=== PATIENT | male | born 1935 | race Caucasian/White ===

== ENCOUNTER 2017-06-04 14:22 | Inpatient (IN) | payer OTHER ==
[2017-06-04] MEDS ORDERED: TYLENOL PO STA (14:50)
[2017-06-04] MEDS ORDERED: TYLENOL ONE (15:15)
--- NOTE | 2017-06-04 15:18 | ED.PDOC ---
General ED Provider: Dr. RAHAT RINCON Chief Complaint: Respiratory Complaint Stated Complaint: Patient is an 82 year old who comes to the ER with c/o cough and fever for the past 7 days. The cough is productive of yellow phlegm. He denies sore throat also c/o bodyaches and nasal congestion. Time Seen by Physician: 15:17 Mode of Arrival: Walk-In Information Source: Patient Exam Limitations: No limitations Primary Care Provider: GUANACO HINOJOSA Nursing and Triage Documentation Reviewed and Agree: Yes Reviewed sepsis parameters & appropriate labs ordered?: Yes System Inflammatory Response Syndrome: Temp 101F or Greater, Pulse >90 BPM Sepsis Protocol: For patient's 13 years and over: Temp is 96.8 and below OR 101 and greater Pulse >90 BPM Resp >20/minute Acutely Altered Mental Status Are patient's symptoms suggestive of a new infection, such as: -Pneumonia -Skin, Soft Tissue -Endocarditis -UTI -Bone, Joint Infection -Implantable Device -Acute Abdominal Infection -Wound Infection -Meningitis -Blood Stream Catheter Infection -Unknown System Inflammatory Response Syndrome: 10yr-17yr with HR>105 Respiratory Complaint Exam - Shortness of Air Complaint/Exam Onset/Duration: 1 week Symptoms Are: Still present Timing: Constant Initial Severity: Moderate Current Severity: Moderate Character: Reports: Dyspnea at rest Aggravating: Reports: URI, Weather Associated Signs and Symptoms: Reports: Cough History of Healthcare-Acquired Pneumonia: No Pulmonary Embolism Risk Factors: Reports: None Cardiac Risk Factors: Reports: None Pseudomonas Risk Factors: Reports: None Tuberculosis Risk Factors: Reports: None Home Oxygen Use: No Recent Stress Test: No Recent Echo/LV Function: No Respiratory Distress: Mild Stridor Present: No Tracheal Deviation: No Subcutaneous Emphysema: No Accessory Muscle Use: No Retractions: Not Present Diminished Breath Sounds: No Prolonged Expiratory Phase: No Unable to Speak Full Sentences: No Fatigue: No Leg Swelling: No Cari's Sign Present: No Grunting Respirations: No Kussmaul Respirations: No Differential Diagnoses: Pneumonia, URI Review of Systems - Review Of Systems Constitutional: Reports: Chills, Fever Eyes: Reports: No symptoms Ears, Nose, Mouth, Throat: Reports: No symptoms Respiratory: Reports: Cough, Short of air Cardiac: Reports: No symptoms GI: Reports: No symptoms : Reports: No symptoms Musculoskeletal: Reports: No symptoms Skin: Reports: No symptoms Neurological: Reports: Anxiety Endocrine: Reports: No symptoms Hematologic/Lymphatic: Reports: No symptoms All Other Systems: Reviewed and Negative Past Medical History - Past Medical History Previously Healthy: Yes Endocrine: Reports: None Cardiovascular: Reports: None Respiratory: Reports: None Hematological: Reports: None Gastrointestinal: Reports: None Genitourinary: Reports: None Neuro/Psych: Reports: None Musculoskeletal: Reports: None Cancer: Reports: None - Surgical History General Surgical History: Reports: None - Family History Family History: Reports: None - Social History Smoking Status: Former smoker Hx Substance Use: No Alcohol Screening: None Physical Exam - Physical Exam Appearance: Ill-appearing Ill-appearing: Moderate Eyes: MIKAYLA, EOMI, Conjunctiva clear Neck: Supple Respiratory: Rhonchi Cardiovascular: Irregular rhythm, Tachycardia GI/: Soft, Nontender Musculoskeletal: Normal strength Skin: Warm, Dry, Normal color Neurological: Motor intact, Alert, Oriented Psychiatric: Anxious Physician Notification - Case Discussed Physician Notified: Dr. Massey Time of Notification: 17:00 Critical Care Note - Critical Care Note Total Time (mins): 35 Course - Course Hematology/Chemistry: 06/04/17 15:05 06/04/17 15:05 Orders, Labs, Meds: Lab Review 06/04/17 06/04/17 06/04/17 14:37 14:50 15:05 WBC 9.26 RBC 5.47 Hgb 15.5 Hct 46.0 MCV 84.1 MCH 28.3 MCHC 33.7 RDW Coeff of Tiffany 15.0 H Plt Count 267 Immature Gran % (Auto) 0.3 Neut % (Auto) 79.4 Lymph % (Auto) 13.1 Atkinson % (Auto) 6.9 Eos % (Auto) 0.1 Baso % (Auto) 0.2 Immature Gran # (Auto) 0.0 Neut # 7.4 H Lymph # 1.2 Atkinson # 0.6 Eos # 0.0 Baso # 0.0 PT INR Puncture Site Rr O2 Saturation 90.0 L ABG pH 7.466 H ABG pCO2 28.7 L ABG pO2 54.0 L* ABG HCO3 20.7 L ABG Total CO2 22 ABG Base Excess -3 L George Test + FiO2 % 21.0 Sodium Potassium Chloride Carbon Dioxide Anion Gap BUN Creatinine Estimated GFR (MDRD) BUN/Creatinine Ratio Glucose Lactic Acid Calcium Total Bilirubin AST ALT Alkaline Phosphatase Total Protein Albumin Globulin Albumin/Globulin Ratio Procalcitonin Influenza A (Rapid) Negative by naat Influenza B (Rapid) Negative by naat 06/04/17 06/04/17 06/04/17 15:05 15:05 15:05 WBC RBC Hgb Hct MCV MCH MCHC RDW Coeff of Tiffany Plt Count Immature Gran % (Auto) Neut % (Auto) Lymph % (Auto) [place] % (Auto) Eos % (Auto) Baso % (Auto) Immature Gran # (Auto) Neut # Lymph # Atkinson # Eos # Baso # PT INR Puncture Site O2 Saturation ABG pH ABG pCO2 ABG pO2 ABG HCO3 ABG Total CO2 ABG Base Excess George Test FiO2 % Sodium 137 Potassium 3.8 Chloride 105 Carbon Dioxide 23 Anion Gap 12.8 BUN 17 Creatinine 1.31 H Estimated GFR (MDRD) 53.00 BUN/Creatinine Ratio 12.97 Glucose 334 H Lactic Acid 14.1 Calcium 9.3 Total Bilirubin 0.5 AST 27 ALT 48 Alkaline Phosphatase 93 Total Protein 6.9 Albumin 3.2 L Globulin 3.7 Albumin/Globulin Ratio 0.86 Procalcitonin < 0.05 Influenza A (Rapid) Influenza B (Rapid) 06/04/17 15:05 WBC RBC Hgb Hct MCV MCH MCHC RDW Coeff of Tiffany Plt Count Immature Gran % (Auto) Neut % (Auto) Lymph % (Auto) [place] % (Auto) Eos % (Auto) Baso % (Auto) Immature Gran # (Auto) Neut # Lymph # Atkinson # Eos # Baso # PT 33.8 H INR 3.43 Puncture Site O2 Saturation ABG pH ABG pCO2 ABG pO2 ABG HCO3 ABG Total CO2 ABG Base Excess George Test FiO2 % Sodium Potassium Chloride Carbon Dioxide Anion Gap BUN Creatinine Estimated GFR (MDRD) BUN/Creatinine Ratio Glucose Lactic Acid Calcium Total Bilirubin AST ALT Alkaline Phosphatase Total Protein Albumin Globulin Albumin/Globulin Ratio Procalcitonin Influenza A (Rapid) Influenza B (Rapid) Orders Category Date Time Status ADMIT PATIENT INPATIENT .TO [facility] (MONITORED BED) ADMISSION 06/04/17 16: 30 Active ABG DRAW REQUEST Stat CARDIO 06/04/17 14:50 Completed NEBULIZER TREATMENT Routine CARDIO 06/04/17 16:37 Active NEBULIZER TREATMENT Stat CARDIO 06/04/17 15:24 Completed OXYGEN Routine CARDIO 06/04/17 16:30 Active BLOOD GLUCOSE MONITORING 0630,1100,1700,2100 CARE 06/04/17 16:37 Active GIVE HS SNACK 2100 CARE 06/04/17 16:37 Active INTAKE & OUTPUT Q8HR CARE 06/04/17 16:33 Active IV ACCESS ONCE CARE 06/04/17 14:49 Active TELEMETRY MONITORING TELE CARE 06/04/17 16:42 Active VITAL SIGNS Q4HR CARE 06/04/17 16:33 Active ADA 1800 NIK. DIET DIETARY 06/04/17 Dinner Ordered HS SNACK DIETARY 06/04/17 Dinner Ordered ED APPLY O2 .ONCE EMERGENCY 06/04/17 14:49 Active ED BUTTON MAKER AND INSTALLER APPLIED .ONCE EMERGENCY 06/04/17 14:49 Active ED VITAL SIGNS Q1HR EMERGENCY 06/04/17 14:49 Active ABG Stat LAB 06/04/17 14:50 Completed BASIC METABOLIC PANEL DAILY@0600 LAB 06/05/17 06:00 Ordered BASIC METABOLIC PANEL DAILY@0600 LAB 06/06/17 06:00 Ordered BLOOD CULTURE (ED ONLY) Stat LAB 06/04/17 15:05 Received CBC W/ AUTO DIFF DAILY@0600 LAB 06/05/17 06:00 Ordered CBC W/ AUTO DIFF DAILY@0600 LAB 06/06/17 06:00 Ordered CBC W/ AUTO DIFF Stat LAB 06/04/17 15:05 Completed COMPREHENSIVE METABOLIC PANEL Stat LAB 06/04/17 15:05 Completed FLU A & B RAPID TEST [MOLECULAR FLU A/B] Stat LAB 06/04/17 14:37 Completed LACTIC ACID Stat LAB 06/04/17 15:05 Completed PROCALCITONIN Stat LAB 06/04/17 15:05 Completed PT WITH INR Stat LAB 06/04/17 15:05 Completed URINALYSIS C & S IF INDICATED Stat LAB 06/04/17 14:49 Uncollected Acetaminophen [Tylenol] MEDS 06/04/17 14:50 Discontinued 1,000 mg PO ONCE STA Acetaminophen [Tylenol] MEDS 06/04/17 16:30 Ordered 650 mg PO Q4H PRN Azithromycin [Zithromax] MEDS 06/04/17 15:38 Discontinued 500 mg PO ONCE STA Ceftriaxone Sodium [Rocephin] 1 gm MEDS 06/05/17 09:00 Ordered 0.9 % Sodium Chloride [Sodium Chloride] 50 ml IV DAILY Ceftriaxone Sodium [Rocephin] 1 gm MEDS 06/04/17 15:38 Discontinued 0.9 % Sodium Chloride [Sodium Chloride] 50 ml IV ONCE Ipratropium/Albuterol Neb [Duoneb] MEDS 06/04/17 15:24 Discontinued 1 vial NEB ONCE STA Ipratropium/Albuterol Neb [Duoneb] MEDS 06/04/17 20:00 Ordered 1 vial NEB RTQID Methylprednisolone Sod Succ/Pf [Solu-Medrol 125 mg] MEDS 06/04/17 15:24 Discontinued 125 mg IVP ONCE STA Methylprednisolone Sod Succ/Pf [Solu-Medrol 40 mg] MEDS 06/04/17 21:00 Ordered 40 mg IVP Q8HR Ondansetron HCl/Pf [Zofran 4 mg/2 ml] MEDS 06/04/17 16:30 Ordered 4 mg IVP Q6H PRN Sodium Chloride 0.9% [Sodium Chloride] 1,000 ml MEDS 06/04/17 16:30 Ordered IV 125 mls/hr RESUSCITATION STATUS Routine OTHERS 06/04/17 16:30 Ordered CHEST, 2 VIEWS PA & LAT Stat RADS 06/04/17 14:49 Completed Medications Generic Name Dose Route Start Last Admin Trade Name Freq PRN Reason Stop Dose Admin Acetaminophen 650 mg 06/04/17 16:30 Tylenol PO Q4H PRN fever Albuterol/Ipratropium 1 vial 06/04/17 20:00 Duoneb NEB RTQID CLYDE Amiodarone HCl 200 mg 06/05/17 09:00 Cordarone PO DAILY [facility] Doxycycline Hyclate 100 mg 06/04/17 21:00 Doxycycline Hyclate PO Q12HR [facility] Ceftriaxone Sodium 1 gm/ 50 mls @ 75 mls/hr 06/05/17 09:00 Sodium Chloride IV DAILY [facility] Sodium Chloride 1,000 mls @ 125 mls/hr 06/04/17 16:30 Sodium Chloride IV .Q8H [facility] Insulin Human Regular 0 - 15 unit 06/04/17 16:45 Humulin R SUBCUT PRN PRN Hyperglycemica Protocol Metformin HCl 500 mg 06/05/17 09:00 Glucophage PO DAILY [facility] Methylprednisolone Sodium Succinate 40 mg 06/04/17 21:00 Solu-Medrol 40 Mg IVP Q8HR CLYDE Non-Formulary Medication 1 tab 06/05/17 09:00 Lisinopril/Hydrochlorothiazide [Lisinopril-Hctz 10-12.5 Mg Tab] PO DAILY CLYDE Ondansetron HCl 4 mg 06/04/17 16:30 Zofran 4 Mg/2 Ml IVP Q6H PRN Nausea / Vomiting Simvastatin 40 mg 06/05/17 09:00 Zocor PO DAILY CLYDE Discontinued Medications Generic Name Dose Route Start Last Admin Trade Name Freq PRN Reason Stop Dose Admin Acetaminophen 1,000 mg 06/04/17 14:50 06/04/17 15:23 Tylenol PO 06/04/17 14:51 1,000 mg ONCE STA Administration Albuterol/Ipratropium 1 vial 06/04/17 15:24 06/04/17 15:44 Duoneb NEB 06/04/17 15:25 1 vial ONCE STA Administration Azithromycin 500 mg 06/04/17 15:38 06/04/17 16:32 Zithromax PO 06/04/17 15:39 Not Given ONCE STA Ceftriaxone Sodium 1 gm/ 50 mls @ 75 mls/hr 06/04/17 15:38 06/04/17 16:30 Sodium Chloride IV 06/04/17 16:17 75 mls/hr ONCE STA Administration Methylprednisolone Sodium Succinate 125 mg 06/04/17 15:24 06/04/17 15:50 Solu-Medrol 125 Mg IVP 06/04/17 15:25 125 mg ONCE STA Administration Vital Signs: Temp Pulse Resp BP Pulse Ox 06/04/17 15:40 120 H 23 132/95 H 91 L 06/04/17 15:05 106 H 16 90 L 06/04/17 15:00 113 H 28 H 172/92 H 88 L 06/04/17 14:22 101.1 F H 126 H 20 179/90 H 89 L Departure - Departure Time of Disposition: 17:40 Disposition: ADMITTED INPATIENT Discharge Problem: Pneumonitis Condition: Stable Pt referred to PMD for follow-up: No (admitted. ) Allergies/Adverse Reactions: Allergies No Known Allergies Allergy (Verified 11/16/15 08:59) Home Medications: Ambulatory Orders Amiodarone HCl 200 mg PO DAILY 05/11/14 Lisinopril/Hydrochlorothiazide [Lisinopril-Hctz 10-12.5 mg Tab] 1 tab PO DAILY 05/11/14 Simvastatin 40 mg PO DAILY 05/11/14 Warfarin Sodium [Coumadin] 2.5 mg PO DAILY 05/11/14 Metformin HCl 500 mg PO DAILY 06/04/17
[2017-06-04] MEDS ORDERED: SOLU-MEDROL 125 MG IVP STA (15:24)
[2017-06-04] MEDS ORDERED: DUONEB NEB STA (15:24)
[2017-06-04] MEDS ORDERED: SOLU-MEDROL 125 MG ONE (15:36)
[2017-06-04] MEDS ORDERED: ZITHROMAX PO STA (15:38)
[2017-06-04] MEDS ORDERED: ROCEPHIN 1 GM in SODIUM CHLORIDE 50 ML IV STA (15:38)
--- NOTE | 2017-06-04 15:52 | DI ---
EXAM: Chest two views HISTORY: Cough COMPARISON: 05/11/2014 TECHNIQUE: Two views of the chest were performed FINDINGS: Subtle right apical opacity. There is no pleural effusion or pneumothorax. The heart is mildly enlarged, unchanged in size. The mediastinal contour is unchanged, noting atherosclerosis. M edian sternotomy wires.. There are no acute abnormalities of the bones. IMPRESSION: 1. Subtle right apical opacity, uncertain etiology. This could represent a small focus of scarring or possibly a pneumonitis. Nodule not excluded. Recommend radiographic follow-up [address] could also be performed for further evaluation. 2. Cardiomegaly. Report faxed.
[2017-06-04] MEDS ORDERED: ROCEPHIN ONE (15:54)
[2017-06-04] MEDS ORDERED: ZITHROMAX ONE (15:55)
[2017-06-04] MEDS ORDERED: ZOFRAN 4 MG/2 ML IVP PRN (16:30)
[2017-06-04] MEDS ORDERED: SODIUM CHLORIDE 1,000 ML IV SCH (16:30)
[2017-06-04] MEDS ORDERED: TYLENOL PO PRN (16:30)
[2017-06-04 18:11] VITALS: BMI 25.0
[2017-06-04] MEDS: HUMULIN R SUBCUT PRN ×2 (18:27→21:59)
[2017-06-04] MEDS: DUONEB NEB SCH (20:06)
[2017-06-04] MEDS ORDERED: GLYBURIDE 2.5 MG PO SCH (21:00)
[2017-06-04] MEDS: FLONASE NAS SCH (21:52)
[2017-06-04] MEDS: DOXYCYCLINE HYCLATE PO SCH (21:52)
[2017-06-04] MEDS: SOLU-MEDROL 40 MG IVP SCH (21:53)
[2017-06-05] MEDS: SOLU-MEDROL 40 MG IVP SCH ×3 (04:35→20:41)
[2017-06-05] MEDS: SODIUM CHLORIDE 1,000 ML IV SCH ×3 (04:39→22:40)
[2017-06-05] MEDS: DUONEB NEB SCH ×5 (05:07→23:28)
[2017-06-05] MEDS: HUMULIN R SUBCUT PRN ×4 (06:00→21:27)
[2017-06-05] MEDS ORDERED: COUMADIN PO SCH (09:00)
[2017-06-05] MEDS: ROCEPHIN 1 GM in SODIUM CHLORIDE 50 ML IV SCH (09:34)
[2017-06-05] MEDS: DOXYCYCLINE HYCLATE PO SCH ×2 (09:35→20:36)
[2017-06-05] MEDS: ZOCOR PO SCH (09:35)
[2017-06-05] MEDS: GLUCOPHAGE PO SCH (09:35)
[2017-06-05] MEDS: HYDROCHLOROTHIAZIDE PO SCH (09:35)
[2017-06-05] MEDS: CORDARONE PO SCH (09:35)
[2017-06-05] MEDS: ZESTRIL PO SCH (09:35)
--- NOTE | 2017-06-05 09:38 | PCM.PROG ---
Attending Provider: ATTENDING PROVIDER: [facility] This patient is seen with Rosa Maria Christianson, Nurse Practitioner. DATE OF SERVICE: 06/05/17 SUBJECTIVE: This 82 year old WHITE/ M was hospitalized 06/04/17. The patient is lying in bed, resting comfortably. He had been running a fever for several days with cough and came to the ER last night. REVIEW OF SYSTEMS: CONSTITUTIONAL: No night sweats. No fatigue, malaise, lethargy. No fever or chills. HEENT: Eyes: No visual changes. No eye pain. No eye discharge. ENT: No runny nose. No epistaxis. No sinus pain. No odynophagia. No congestion. RESPIRATORY: Cough and congestion. No hemoptysis. No shortness of breath. CARDIOVASCULAR: No angina symptoms. No CHF symptoms. No atypical chest pain for CAD. No palpitations. No orthopnea.. GASTROINTESTINAL: No abdominal pain. No nausea or vomiting. No diarrhea or constipation. No hematemesis. No hematochezia. GENITOURINARY: No urgency. No frequency. No dysuria. No hematuria. No obstructive symptoms. No discharge. No pain. No significant abnormal bleeding. MUSCULOSKELETAL: No musculoskeletal pain; no joint swelling. NEUROLOGICAL: Awake, alert, oriented to time, place and person. No headache. No neck pain. No syncope. No seizures. No dizziness. PSYCHIATRIC: Not anxious. No depression. No suicidal thoughts. No homicidal thoughts. SKIN: No rash. No lesions. No wounds. ENDOCRINE: No unexplained weight loss. No weight gain. HEMATOLOGIC/LYMPHATIC: No anemia. No purpura. No petechiae. No prolonged or excessive bleeding. No palpable lymph nodes. PHYSICAL EXAMINATION: GENERAL: The patient is awake, alert and oriented, lying in bed in no distress. VITAL SIGNS: Temperature 97.2 F, Pulse 88, Respiratory Rate 16, BP 123/63, Pulse Ox 96% HEENT: Head normocephalic, atraumatic. Eyes: Extraocular muscles are intact. Pupils are equal, round and reactive to light and accommodation. Ears: No lesions. Nose appeared normal. Throat: No exudate or erythema. NECK: Supple. No JVD, no carotid bruit. No lymphadenopathy or thyromegaly. LUNGS: Diminished breath sounds bilaterally. Percussion note normal. Chest symmetrical. HEART: S1, S2, no S3. No murmurs. No cyanosis or clubbing. No ascites. Pulses: Dorsalis pedis and posterior tibial pulses +1 to +2 both sides. ABDOMEN: Soft. Non-tender. Bowel sounds active. No CVA tenderness. No mass felt. EXTREMITIES: No edema. Full range of motion of all extremities, equal. NEUROLOGIC: No focal deficit. Cranial nerves II through XII are grossly intact. No headache, no double vision or headache. SKIN: Not dry. Intact. Turgor-normal. LYMPHATIC: No palpable lymph nodes/no lymphedema. MUSCULOSKELETAL: Normal joints with no swelling. Muscle tone is normal. LAB REVIEW: 06/05/17 04:10 06/05/17 04:10 06/05/17 04:10: PT 35.3 H, INR 3.59 06/05/17 04:10: Sodium 138, Potassium 3.7, Chloride 107, Carbon Dioxide 23, Anion Gap 11.7, BUN 20 H, Creatinine 1.35 H, Estimated GFR (MDRD) 51.00, BUN/ Creatinine Ratio 14.81, Glucose 340 H, Calcium 9.1, TSH 0.339 L, Free T4 1.21 H 06/05/17 04:10: WBC 10.76 H, RBC 5.12, Hgb 14.4, Hct 43.0, MCV 84.0, MCH 28.1, MCHC 33.5, RDW Coeff of Tiffany 15.2 H, Plt Count 251, Immature Gran % (Auto) 0.4, Neut % (Auto) 86.8, Lymph % (Auto) 9.5 L, Harris % (Auto) 3.1, Eos % (Auto) 0.0, Baso % (Auto) 0.2, Immature Gran # (Auto) 0.0, Neut # 9.4 H, Lymph # 1.0, Harris # 0.3 L, Eos # 0.0, Baso # 0.0 06/04/17 20:45: Urine Color Yellow, Urine Clarity Clear, Urine pH 6.0, Ur Specific [place] 1.010, Urine Protein 1+, Urine Glucose (UA) 2+, Urine Ketones Trace, Urine Blood Trace-intact, Urine Nitrite Negative, Urine Bilirubin Negative, Urine Urobilinogen 0.2, Ur Leukocyte Esterase Negative, Urine Microscopic RBC 2-5, Ur Squamous Epith Cells Not present, Hyaline Casts 0-2, Urine Mucus Trace ASSESSMENT: 1. PNEUMONIA 2. HISTORY OF ATRIAL FIBRILLATION 3. DIABETES MELLITUS TYPE 2 PLAN: 1. Daily INR 2. Hold Coumadin today restart tomorrow 3. Decrease IV fluids 50 cc/hr Plan and coordination of the patient's care discussed in the presence of Law Examiner and nurse. CONDITION: STABLE SCRIBED BY: POLLO LEON Orchestra Director scribed while in presence of service performed by Dr. Arthur/Rosa Maria Christianson APRN on 06/05/17 ([id number])
--- NOTE | 2017-06-05 13:37 | PN ---
DATE OF SERVICE: 06/04/17 SUBJECTIVE: 82-year-old white male was brought to the emergency room because of fever, chills, cough and congestion with flu-type of symptoms. The patient had evidence of pneumonia on chest x-ray. He is Dr. Chase's patient. He has history of atrial fibrillation and on Coumadin with INR of 3.2. PHYSICAL EXAMINATION: HEENT: Head normocephalic, atraumatic. Eyes: Extraocular muscles are intact. Pupils are equal, round and reactive to light and accommodation. Ears: No lesions. Nose appeared normal. Throat: No exudate or erythema. NECK: Supple. No JVD, no carotid bruit. No lymphadenopathy or thyromegaly. LUNGS: Decreased breath sounds with mild wheeze. Clear to auscultation. Percussion note normal. Chest symmetrical. HEART: S1, S2, no S3. No murmurs. No cyanosis or clubbing. No ascites. Pulses: Dorsalis pedis and posterior tibial pulses +1 bilaterally. ABDOMEN: Soft. Nontender. Bowel sounds active. No CVA tenderness. No mass felt. EXTREMITIES: No edema. Full range of motion of all extremities, equal. NEUROLOGIC: No focal deficit. Cranial nerves II through XII are grossly intact. No headache, no double vision or headache. SKIN: Not dry. Intact. Turgor - normal. LYMPHATIC: No palpable lymph nodes/no lymphedema. MUSCULOSKELETAL: Normal joints with no swelling. Muscle tone is normal. ASSESSMENT: 1. ACUTE PNEUMONITIS/BRONCHITIS 2. DEHYDRATION 3. ATRIAL FIBRILLATION WITH RAPID VENTRICULAR RESPONSE 4. CHRONIC LUNG DISEASE 5. MILD ANEMIA PLAN: 1. IV antibiotics 2. Steroids 3. Nebs treatment 4. IV fluids 5. Oxygen 6. Hold Coumadin for now 7. Rocephin, will have Doxycycline with it CONDITION: Stable TIME SPENT: More than 30 minutes. Plan and coordination of the patient's care discussed in the presence of nurse. KENNY
[2017-06-05] MEDS: DIABETA PO SCH (20:35)
[2017-06-05] MEDS: FLONASE NAS SCH (20:35)
[2017-06-06] MEDS: DUONEB NEB SCH ×3 (04:17→14:09)
[2017-06-06] MEDS: HUMULIN R SUBCUT PRN ×4 (05:34→20:19)
[2017-06-06] MEDS: SOLU-MEDROL 40 MG IVP SCH ×3 (05:36→21:06)
[2017-06-06] MEDS: GLUCOPHAGE PO SCH (08:28)
--- NOTE | 2017-06-06 09:22 | PCM.PROG ---
Attending Provider: ATTENDING PROVIDER: [facility] This patient is seen with Rosa Maria Christianson, Nurse Practitioner. DATE OF SERVICE: 06/06/17 SUBJECTIVE: This 82 year old WHITE/ M was hospitalized 06/04/17. The patient is alert lying in bed. He states he did not sleep well last night. He is still coughing. No shortness of breath. Telemetry shows persistent atrial fibrillation which is chronic. INR still elevated at 3.9. REVIEW OF SYSTEMS: CONSTITUTIONAL: No night sweats. No fatigue, malaise, lethargy. No fever or chills. HEENT: Eyes: No visual changes. No eye pain. No eye discharge. ENT: No runny nose. No epistaxis. No sinus pain. No odynophagia. No congestion. RESPIRATORY: Cough and congestion. No hemoptysis. No shortness of breath. CARDIOVASCULAR: No angina symptoms. No CHF symptoms. No atypical chest pain for CAD. No palpitations. No orthopnea.. GASTROINTESTINAL: No abdominal pain. No nausea or vomiting. No diarrhea or constipation. No hematemesis. No hematochezia. GENITOURINARY: No urgency. No frequency. No dysuria. No hematuria. No obstructive symptoms. No discharge. No pain. No significant abnormal bleeding. MUSCULOSKELETAL: No musculoskeletal pain; no joint swelling. NEUROLOGICAL: Awake, alert, oriented to time, place and person. No headache. No neck pain. No syncope. No seizures. No dizziness. PSYCHIATRIC: Not anxious. No depression. No suicidal thoughts. No homicidal thoughts. SKIN: No rash. No lesions. No wounds. ENDOCRINE: No unexplained weight loss. No weight gain. HEMATOLOGIC/LYMPHATIC: No anemia. No purpura. No petechiae. No prolonged or excessive bleeding. No palpable lymph nodes. PHYSICAL EXAMINATION: GENERAL: The patient is awake, alert and oriented, lying in bed in no distress. VITAL SIGNS: Temperature 97.4 F, Pulse 98, Respiratory Rate 18, BP 143/68, Pulse Ox 97% HEENT: Head normocephalic, atraumatic. Eyes: Extraocular muscles are intact. Pupils are equal, round and reactive to light and accommodation. Ears: No lesions. Nose appeared normal. Throat: No exudate or erythema. NECK: Supple. No JVD, no carotid bruit. No lymphadenopathy or thyromegaly. LUNGS: Diminished breath sounds. Clear to auscultation. Percussion note normal. Chest symmetrical. HEART: Irregular heart rate. S1, S2, no S3. No murmurs. No cyanosis or clubbing. No ascites. Pulses: Dorsalis pedis and posterior tibial pulses +1 to +2 both sides. ABDOMEN: Soft. Non-tender. Bowel sounds active. No CVA tenderness. No mass felt. EXTREMITIES: No edema. Full range of motion of all extremities, equal. NEUROLOGIC: No focal deficit. Cranial nerves II through XII are grossly intact. No headache, no double vision or headache. SKIN: Not dry. Intact. Turgor-normal. LYMPHATIC: No palpable lymph nodes/no lymphedema. MUSCULOSKELETAL: Normal joints with no swelling. Muscle tone is normal. LAB REVIEW: 06/06/17 04:30 06/06/17 04:30 06/06/17 04:30: PT 38.3 H, INR 3.90 06/06/17 04:30: Sodium 134 L, Potassium 3.3 L, Chloride 105, Carbon Dioxide 19 L , Anion Gap 13.3, BUN 30 H, Creatinine 1.39 H, Estimated GFR (MDRD) 49.00, BUN/ Creatinine Ratio 21.58, Glucose 351 H, Calcium 8.9 06/06/17 04:30: WBC 16.03 H D, RBC 4.63 L, Hgb 13.1 L, Hct 38.6 L, MCV 83.4, MCH 28.3, MCHC 33.9, RDW Coeff of Tiffany 15.8 H, Plt Count 253, Immature Gran % ( Auto) 1.4, Neut % (Auto) 89.5, Lymph % (Auto) 4.1 L, [place] % (Auto) 4.9, Eos % ( Auto) 0.0, Baso % (Auto) 0.1, Immature Gran # (Auto) 0.2, Neut # 14.3 H, Lymph # 0.7, [place] # 0.8, Eos # 0.0, Baso # 0.0 ASSESSMENT: 1. PNEUMONIA 2. ATRIAL FIBRILLATION 3. DIABETES MELLITUS TYPE 2 4. CHRONIC KIDNEY DISEASE 5. HYPOKALEMIA PLAN: 1. Finish this bag of IV fluids and saline lock 2. Tussionex one teaspoon b.i.d. for cough 3. Potassium 40 mEq b.i.d. 4. Hold Coumadin today 5. Repeat INR tomorrow Plan and coordination of the patient's care discussed in the presence of Shaft Tender and nurse. CONDITION: STABLE SCRIBED BY: POLLO LEON Milling Machine Operator scribed while in presence of service performed by Dr. Arthur/Rosa Maria Christianson APRN on 06/06/17 ([id number])
[2017-06-06] MEDS: ROCEPHIN 1 GM in SODIUM CHLORIDE 50 ML IV SCH (09:23)
[2017-06-06] MEDS: ZESTRIL PO SCH (09:26)
[2017-06-06] MEDS: HYDROCHLOROTHIAZIDE PO SCH (09:27)
[2017-06-06] MEDS: CORDARONE PO SCH (09:28)
[2017-06-06] MEDS: DOXYCYCLINE HYCLATE PO SCH ×2 (09:28→20:09)
[2017-06-06] MEDS: SODIUM CHLORIDE 1,000 ML IV SCH (09:29)
[2017-06-06] MEDS: ZOCOR PO SCH (09:29)
[2017-06-06] MEDS: K-DUR PO SCH ×2 (09:36→20:08)
[2017-06-06] MEDS: TUSSIONEX PO SCH ×2 (09:36→20:08)
[2017-06-06] MEDS ORDERED: COUMADIN PO SCH (17:00)
[2017-06-06] MEDS: FLONASE NAS SCH (20:08)
[2017-06-06] MEDS: DIABETA PO SCH (20:09)
[2017-06-07] MEDS: DUONEB NEB SCH ×2 (04:12→10:19)
[2017-06-07] MEDS: SOLU-MEDROL 40 MG IVP SCH (05:01)
[2017-06-07] MEDS: HUMULIN R SUBCUT PRN (05:53)
[2017-06-07] MEDS: ROCEPHIN 1 GM in SODIUM CHLORIDE 50 ML IV SCH (08:09)
[2017-06-07] MEDS: ZESTRIL PO SCH (08:10)
[2017-06-07] MEDS: DOXYCYCLINE HYCLATE PO SCH (08:10)
[2017-06-07] MEDS: GLUCOPHAGE PO SCH (08:10)
[2017-06-07] MEDS: HYDROCHLOROTHIAZIDE PO SCH (08:10)
[2017-06-07] MEDS: ZOCOR PO SCH (08:11)
[2017-06-07] MEDS: TUSSIONEX PO SCH (08:11)
[2017-06-07] MEDS: K-DUR PO SCH (08:11)
[2017-06-07] MEDS: CORDARONE PO SCH (08:11)
--- NOTE | 2017-06-07 09:31 | DS ---
DATE OF SERVICE: 06/07/17 FINAL DIAGNOSIS: 1. PNEUMONITIS, ACUTE 2. HISTORY OF UTI 3. BPH 4. NON INSULIN DEPENDENT DIABETES MELLITUS 5. NV 6. ARTHRITIS 7. CAD 8. HYPERTENSION 9. DYSLIPIDEMIA 10. CABG TIMES 4, 05/12/14 11. BILATERAL INGUINAL HERNIA REPAIR WITH MESH, DATE UNKNOWN 12. TOTAL LEFT KNEE REPAIR, DATE UNKNOWN DISCHARGE INSTRUCTIONS: Followup appointment: Followup with Dr. Bryson Lui, June 13 at 8:15 a.m.. Please call if unable to keep appointment. MEDICATIONS AT DISCHARGE: Cordarone 200 mg p.o. daily CLYDE Flonase two sprays KARLA bedtime CLYDE Diabeta 2.5 mg p.o. bedtime CLYDE Glucophage 500 mg p.o. daily with meal CLYDE Zocor 40 mg p.o. daily CLYDE Coumadin 2.5 mg p.o. SuMoWeThFr@ 1700 CLYDE Coumadin 5 mg p.o. TuSa@1700 [facility] NEW PRESCRIPTIONS: Tussionex take 5 mL two times a day for 5 days as needed for cough Keflex 500 mg take one capsule three times daily for 5 days, take until all gone Prednisone 10 mg take one tablet two times a day for five days, take with food Zestril 5 mg one tablet daily DIET INSTRUCTIONS: 1800 calorie diet ACTIVITY: Gradually resume your activity. Avoid extreme cold and crowds. SMOKING: N/A DISEASE SPECIFIC EDUCATION: Pneumonia Medications Steroids and diabetes Coumadin Therapy LAB REVIEW: 06/07/17 04:30: PT 28.5 H D, INR 2.88 06/07/17 04:25: Sodium 134 L, Potassium 3.8, Chloride 105, Carbon Dioxide 21 L, Anion Gap 11.8, BUN 35 H, Creatinine 1.45 H, Estimated GFR (MDRD) 47.00, BUN/ Creatinine Ratio 24.13, Glucose 393 H, Calcium 8.9, Total Bilirubin 0.4, AST 32 , ALT 46, Alkaline Phosphatase 75, Total Protein 5.6 L, Albumin 2.6 L, Globulin 3.0, Albumin/Globulin Ratio 0.87 06/07/17 04:25: WBC 16.09 H, RBC 4.54 L, Hgb 13.0 L, Hct 38.0 L, MCV 83.7, MCH 28.6, MCHC 34.2, RDW Coeff of Tiffany 16.0 H, Plt Count 273, Immature Gran % (Auto) 1.7, Neut % (Auto) 89.3, Lymph % (Auto) 5.7 L, [place] % (Auto) 3.2, Eos % (Auto) 0.0, Baso % (Auto) 0.1, Immature Gran # (Auto) 0.3, Neut # 14.4 H, Lymph # 0.9, [place] # 0.5, Eos # 0.0, Baso # 0.0, INR 2.8. HOSPITAL COURSE: This is an 82-year-old male hospitalized with pneumonia. The patient was treated with Rocephin and Doxycycline. Condition improved remarkably. No other complications. Fibrillation slowed down and improvement in respiratory status. Echocardiogram showed mildly hypokinetic septal wall motion, enlarged LA cavity. He has decided to transfer over to myself for total care from Dr. Chase as I was following his cardiac problems. He will be discharged on Keflex and steroids. Carotid scan will be done as outpatient. Pedal pulses are +2 bilateral. INR 2.8, Condition at discharge stable. TIME SPENT: More than 60 minutes. SCRIBED BY: POLLO LEON, Appellate Conferee scribed while in presence of service performed by Dr. ЕЛЕНА ARTHUR-[facility] on 06/07/17 ([id number]) KENNY
--- NOTE | 2017-06-07 09:32 | PCM.PROG ---
Attending Provider: ATTENDING PROVIDER[facility] DATE OF SERVICE: 06/07/17 SUBJECTIVE: This 82 year old WHITE/ M was hospitalized 06/04/17. The patient is hospitalized with pneumonia. The patient's condition has improved remarkably. He is up and about, is afebrile and appetite improved. REVIEW OF SYSTEMS: CONSTITUTIONAL: No night sweats. No fatigue, malaise, lethargy. No fever or chills. HEENT: Eyes: No visual changes. No eye pain. No eye discharge. ENT: No runny nose. No epistaxis. No sinus pain. No odynophagia. No congestion. RESPIRATORY: Coughing and congestion. No hemoptysis. No shortness of breath. No PND. CARDIOVASCULAR: No angina symptoms. No CHF symptoms. No atypical chest pain for CAD. No palpitations. No orthopnea.. GASTROINTESTINAL: Appetite is better. No abdominal pain. No nausea or vomiting. No diarrhea or constipation. No hematemesis. No hematochezia. GENITOURINARY: No urgency. No frequency. No dysuria. No hematuria. No obstructive symptoms. No discharge. No pain. No significant abnormal bleeding. MUSCULOSKELETAL: No musculoskeletal pain; no joint swelling. NEUROLOGICAL: Awake, alert, oriented to time, place and person. No headache. No neck pain. No syncope. No seizures. No dizziness. PSYCHIATRIC: Not anxious. No depression. No suicidal thoughts. No homicidal thoughts. SKIN: No rash. No lesions. No wounds. ENDOCRINE: No unexplained weight loss. No weight gain. HEMATOLOGIC/LYMPHATIC: No anemia. No purpura. No petechiae. No prolonged or excessive bleeding. No palpable lymph nodes. PHYSICAL EXAMINATION: GENERAL: The patient is awake, alert and oriented, lying in bed in no distress. VITAL SIGNS: Temperature 96.8 F, Pulse 105, Respiratory Rate 20, BP 138/72, Pulse Ox 95% HEENT: Head normocephalic, atraumatic. Eyes: Extraocular muscles are intact. Pupils are equal, round and reactive to light and accommodation. Ears: No lesions. Nose appeared normal. Throat: No exudate or erythema. NECK: Supple. No JVD, no carotid bruit. No lymphadenopathy or thyromegaly. LUNGS: Decreased breath sounds, clear to auscultation. Percussion note normal. Chest symmetrical. HEART: S1, S2, no S3. No murmurs. No cyanosis or clubbing. No ascites. Pulses: Dorsalis pedis and posterior tibial pulses +1 to +2 both sides. ABDOMEN: Soft. Non-tender. Bowel sounds active. No CVA tenderness. No mass felt. EXTREMITIES: No edema. Full range of motion of all extremities, equal. NEUROLOGIC: No focal deficit. Cranial nerves II through XII are grossly intact. No headache, no double vision or headache. SKIN: Not dry. Intact. Turgor-normal. LYMPHATIC: No palpable lymph nodes/no lymphedema. MUSCULOSKELETAL: Normal joints with no swelling. Muscle tone is normal. LAB REVIEW: 06/07/17 04:25 06/07/17 04:25 06/07/17 04:30: PT 28.5 H D, INR 2.88 06/07/17 04:25: Sodium 134 L, Potassium 3.8, Chloride 105, Carbon Dioxide 21 L, Anion Gap 11.8, BUN 35 H, Creatinine 1.45 H, Estimated GFR (MDRD) 47.00, BUN/ Creatinine Ratio 24.13, Glucose 393 H, Calcium 8.9, Total Bilirubin 0.4, AST 32 , ALT 46, Alkaline Phosphatase 75, Total Protein 5.6 L, Albumin 2.6 L, Globulin 3.0, Albumin/Globulin Ratio 0.87 06/07/17 04:25: WBC 16.09 H, RBC 4.54 L, Hgb 13.0 L, Hct 38.0 L, MCV 83.7, MCH 28.6, MCHC 34.2, RDW Coeff of Tiffany 16.0 H, Plt Count 273, Immature Gran % (Auto) 1.7, Neut % (Auto) 89.3, Lymph % (Auto) 5.7 L, [place] % (Auto) 3.2, Eos % (Auto) 0.0, Baso % (Auto) 0.1, Immature Gran # (Auto) 0.3, Neut # 14.4 H, Lymph # 0.9, [place] # 0.5, Eos # 0.0, Baso # 0.0 ASSESSMENT: 1. Pneumonia clinically resolved 2. Atrial fibrillation 3. Hypertension 4. Hyperglycemia PLAN: 1. Will d/c home 2. Carotid scan before discharge 3. Will see the patient back in the office on Monday 4. Tussionex one teaspoon twice a day 5. Keflex 500 mg t.i.d. for five days 6. Prednisone 10 mg b.i.d. for five days Plan and coordination of the patient's care discussed in the presence of Commissioned Police Officer and nurse. CONDITION: Stable SCRIBED BY: POLLO LEON Therapeutic Recreation Leader scribed while in presence of service performed by Dr. ЕЛЕНА ARTHUR-[facility] on 06/07/17 ([id number])
[2017-06-07 10:44] VITALS: BP 160/88; TEMP 97.6
--- NOTE | 2017-06-07 11:10 | CM.DICTOOL ---
ADMISSION: 06/04/17 16:32 DISCHARGE: 06/07/17 FINAL DIAGNOSIS Pneumonitis (Acute) HISTORY OF: UTI BPH NIDDM [place] ARTHRITIS CAD HTN DYSLIPIDEMIA CABG X 4 05/12/14 BILATERAL INGUINAL HERNIA REPAIR WITH MESH DATE UNKNOWN TOTAL LEFT KNEE REPAIR DATE UNKNOWN LAST VITALS Temp Pulse Resp BP Pulse Ox 96.8 F L 105 H 20 138/72 92 L 06/07/17 05:47 06/07/17 05:47 06/07/17 05:47 06/07/17 05:47 06/07/17 10:00 ACTIVE HOME MEDICATIONS Amiodarone HCl (Cordarone) 200 mg PO DAILY [facility] Last Admin: 06/07/17 08:11 Dose: 200 mg Fluticasone Propionate (Flonase) 2 spray KARLA BEDTIME [facility] Last Admin: 06/06/17 20:08 Dose: 2 spray Glyburide (Diabeta) 2.5 mg PO BEDTIME [facility] Last Admin: 06/06/17 20:09 Dose: 2.5 mg Metformin HCl (Glucophage) 500 mg PO DAILYWM [facility] Last Admin: 06/07/17 08:10 Dose: 500 mg Simvastatin (Zocor) 40 mg PO DAILY [facility] Last Admin: 06/07/17 08:11 Dose: 40 mg Warfarin Sodium (Coumadin) 2.5 mg PO SuMoWeThFr@1700 [facility] Warfarin Sodium (Coumadin) 5 mg PO TuSa@1700 [facility] ALLERGIES No Known Allergies Allergy (Verified 11/16/15 08:59) NEW PRESCRIPTIONS: NEW MEDICATIONS: 1. TUSSINEX TAKE 5ML 2 TIMES A DAY FOR 5 DAYS NEEDED FOR COUGH 2. KEFLEX 500MG TAKE 1 CAPSULE 3 TIMES A DAY FOR 5 DAYS. TAKE UNTIL ALL GONE. 3. PREDNISONE 10MG TAKE 1 TABLET 2 TIMES A DAY FOR 5 DAYS. TAKE WITH FOOD. SMOKING: N/A DISEASE SPECIFIC EDUCATION: PNEUMONIA MEDICATIONS STEROIDS AND DIABETES COUMADIN THERAPY LAB REVIEW: 06/07/17 04:25 06/07/17 04:25 06/07/17 04:30: PT 28.5 H D, INR 2.88 06/07/17 04:25: Sodium 134 L, Potassium 3.8, Chloride 105, Carbon Dioxide 21 L, Anion Gap 11.8, BUN 35 H, Creatinine 1.45 H, Estimated GFR (MDRD) 47.00, BUN/ Creatinine Ratio 24.13, Glucose 393 H, Calcium 8.9, Total Bilirubin 0.4, AST 32 , ALT 46, Alkaline Phosphatase 75, Total Protein 5.6 L, Albumin 2.6 L, Globulin 3.0, Albumin/Globulin Ratio 0.87 06/07/17 04:25: WBC 16.09 H, RBC 4.54 L, Hgb 13.0 L, Hct 38.0 L, MCV 83.7, MCH 28.6, MCHC 34.2, RDW Coeff of Tiffany 16.0 H, Plt Count 273, Immature Gran % (Auto) 1.7, Neut % (Auto) 89.3, Lymph % (Auto) 5.7 L, [place] % (Auto) 3.2, Eos % (Auto) 0.0, Baso % (Auto) 0.1, Immature Gran # (Auto) 0.3, Neut # 14.4 H, Lymph # 0.9, [place] # 0.5, Eos # 0.0, Baso # 0.0 PLAN: DISCHARGE HOME TODAY CONTINUE HOME MEDICATIONS PER NURSING SHEET. NEW MEDICATIONS: 1. TUSSINEX TAKE 5ML 2 TIMES A DAY FOR 5 DAYS NEEDED FOR COUGH 2. KEFLEX 500MG TAKE 1 CAPSULE 3 TIMES A DAY FOR 5 DAYS. TAKE UNTIL ALL GONE. 3. PREDNISONE 10MG TAKE 1 TABLET 2 TIMES A DAY FOR 5 DAYS. TAKE WITH FOOD. 4. ZESTRIL 5MG TAKE 1 TABLET DAILY. 1800 CALORIE DIET. GRADUALLY RESUME YOUR ACTIVITY. AVOID EXTREME COLD AND CROWDS. FOLLOW UP WITH DR. ARTHUR MondayMay AT 815AM. PLEASE CALL IF UNABLE TO KEEP APPOINTMENT. [phone]. SITTING UP IN BED. ALERT AND ORIENTED X 4. DR. ARTHUR INTO SEE PATIENT. PATIENT STATES FEELING BETTER AND READY TO GO HOME. DR. ARTHUR DISCUSSED PLAN OF CARE INCLUDING DISCHARGE INSTRUCTIONS. PATIENT VERBALIZES UNDERSTANDING AND AGREEMENT. APPETITE IS GOOD. VITAL SIGNS ARE STABLE. HAS BEEN AFEBRILE. POX 95 % ON O2 AT 2L/C. HEART TONES ARE IRREGULAR WITH TELEMETRY REVEALING AFIB. LUNGS ARE CLEAR WITH COARSE/DIMINISHED BREATH SOUNDS. HAS PRODUCTIVE COUGH OF YELLOW SPUTUM. IS DYSPNEIC WITH ACTIVITY. ABDOMEN IS SOFT, NON-TENDER WITH BOWEL SOUNDS POSITIVE. LAST BM WAS 06/06/17. PEDAL PULSES POSITIVE WITHOUT EDEMA. HAS SALINE LOCK IN LEFT HAND SITE IS CLEAR. IS UP AD MARY WITH STEADY GAIT. DR. ЕЛЕНА ARTHUR MD Charla MELCHOR APRN
--- NOTE | 2017-06-07 11:46 | US ---
EXAM: ULTRASOUND CAROTID DUPLEX, BILATERAL HISTORY: Coronary artery disease FINDINGS: Velasquez-scale ultrasound, color Doppler and spectral analysis was performed. Velocities are in meters per second. By velasquez scale and color Doppler imaging, there were regions of heterogeneous plaque formation identif ied within the carotid bulbs and internal carotid arteries. These regions of plaque appeared to chandrakant in less than 50% vessel diameter. RIGHT: External carotid artery peak systolic velocity: 0.9 Common carotid artery peak systolic velocity/end diastolic velocity: 0.6/0.1 Internal carotid artery peak systolic velocity: 0.9 ICA/CCA peak systolic velocity ratio: 1.5 ICA end diastolic velocity: 0.1 LEFT: External carotid artery peak systolic velocity: 1.0 Common carotid artery peak systolic velocity/end diastolic velocity: 1.0/0.1 Internal carotid artery peak systolic velocity: 0.9 ICA/CCA peak systolic velocity ratio: 8.9 ICA end diastolic velocity: 0.2 The right vertebral artery was identified and is antegrade. The left vertebral artery was not seen. IMPRESSION: 1. By velasquez scale and color Doppler imaging, there were regions of heterogeneous plaque formation naeem ntified within the carotid bulbs and internal carotid arteries. These regions of plaque appeared to remain less than 50% vessel diameter. 2. Internal carotid artery peak systolic velocities and ICA/CCA peak systolic velocity ratios indica te no hemodynamically significant stenosis bilaterally. 3. Left vertebral artery was not seen possibly secondary to small caliber, technical difficulties or occlusion. The right vertebral artery was patent and normally antegrade.
[2017-06-07] MEDS ORDERED: COUMADIN PO SCH (17:00)
== END 2017-06-07 12:07 | disposition home or self-care (01) | DRG 195 ==
LOC: ED 14:22 → MEDSURG A 16:32
PROVIDERS: ADMIT Internal Medicine; ATTEND Internal Medicine
DX: J18.9 Pneumonia, unspecified organism (principal); R06.02 Shortness of breath; R50.9 Fever, unspecified; R00.0 Tachycardia, unspecified; I51.7 Cardiomegaly; E11.65 Type 2 diabetes mellitus with hyperglycemia; I10 Essential (primary) hypertension; N40.0 Benign prostatic hyperplasia without lower urinary tract symptoms; I48.2 Chronic atrial fibrillation; M19.90 Unspecified osteoarthritis, unspecified site; I25.10 Atherosclerotic heart disease of native coronary artery without angina pectoris; E78.5 Hyperlipidemia, unspecified; E86.0 Dehydration; J44.9 Chronic obstructive pulmonary disease, unspecified; I12.9 Hypertensive chronic kidney disease with stage 1 through stage 4 chronic kidney disease, or unspecified chronic kidney disease; N18.9 Chronic kidney disease, unspecified; D64.9 Anemia, unspecified; E87.6 Hypokalemia; I25.2 Old myocardial infarction; Z87.440 Personal history of urinary (tract) infections; Z79.01 Long term (current) use of anticoagulants; Z79.899 Other long term (current) drug therapy; Z95.1 Presence of aortocoronary bypass graft; Z98.890 Other specified postprocedural states; Z87.891 Personal history of nicotine dependence
CPT/HCPCS: 36415; 80048; 80053; 81001; 82803; 82962; 83605; 84145; 84439; 84443; 85025; 85610; 87040; 87502; 93005; 93010; 94640; 96365; 96375; 99284

== ENCOUNTER 2017-09-19 15:29 | Inpatient (IN) ==
[2017-09-19] MEDS ORDERED: VISTARIL INJ IM PRN (15:49)
[2017-09-19] MEDS ORDERED: TYLENOL PO PRN (15:49)
[2017-09-19] MEDS ORDERED: NITROSTAT SL PRN (15:49)
[2017-09-19] MEDS ORDERED: ATROPINE SULFATE PFS IVP PRN (15:49)
[2017-09-19] MEDS ORDERED: MORPHINE 4 MG/ML VIAL IVP PRN (15:49)
[2017-09-19] MEDS ORDERED: SODIUM CHLORIDE 1,000 ML IV SCH (16:00)
[2017-09-19 16:20] VITALS: BMI 24.3
--- NOTE | 2017-09-19 16:56 | DI ---
EXAM: Two views of the chest. History: Short of breath Comparison: Chest radiograph 06/04/2017, chest CT 05/11/2014 Findings: Heart is mildly enlarged. Left basilar subsegmental atelectasis. No definite acute infil trates. No appreciable pleural fluid and no pneumothorax. Sternotomy wires. No acute osseous abnor malities. Impression: No acute cardiopulmonary process. Mild cardiomegaly.
[2017-09-19] MEDS: XOPENEX 1.25 MG NEB SCH ×2 (17:05→23:13)
[2017-09-19] MEDS: HUMULIN R SUBCUT PRN ×2 (17:19→20:57)
[2017-09-19] MEDS: COUMADIN PO SCH ×2 (17:21→17:26)
[2017-09-19] MEDS: ROCEPHIN 1 GM in SODIUM CHLORIDE 50 ML IV SCH (17:21)
[2017-09-19] MEDS: FLONASE NAS SCH (20:52)
[2017-09-19] MEDS: ZOCOR PO SCH (20:52)
[2017-09-19] MEDS: SOLU-CORTEF 250 MG IVP SCH (20:53)
[2017-09-19] MEDS: TUSSIONEX PO SCH (20:54)
[2017-09-19] MEDS ORDERED: DIABETA PO SCH (21:00)
[2017-09-19] MEDS ORDERED: GLYBURIDE 2.5 MG PO SCH (21:00)
[2017-09-20] MEDS: XOPENEX 1.25 MG NEB SCH ×4 (05:34→23:50)
[2017-09-20] MEDS: SOLU-CORTEF 250 MG IVP SCH ×3 (06:05→20:14)
[2017-09-20] MEDS: HUMULIN R SUBCUT PRN ×4 (06:06→20:50)
[2017-09-20] MEDS: ZESTRIL PO SCH (08:18)
[2017-09-20] MEDS: COUMADIN PO SCH ×2 (08:19→08:53)
[2017-09-20] MEDS: CORDARONE PO SCH (08:19)
[2017-09-20] MEDS: GLUCOPHAGE PO SCH (08:19)
[2017-09-20] MEDS: ASPIRIN EC PO SCH (08:19)
[2017-09-20] MEDS: TUSSIONEX PO SCH ×2 (08:19→20:15)
[2017-09-20] MEDS ORDERED: TORADOL IVP PRN (08:36)
[2017-09-20] MEDS ORDERED: TORADOL IVP STA (08:37)
[2017-09-20] MEDS ORDERED: COUMADIN PO STA ×2 (08:52→09:05)
[2017-09-20] MEDS: ROCEPHIN 1 GM in SODIUM CHLORIDE 50 ML IV SCH (08:57)
--- NOTE | 2017-09-20 09:33 | PCM.PROG ---
Attending Provider: ATTENDING PROVIDER: Dr. ЕЛЕНА ARTHUR DATE OF SERVICE: 09/20/17 SUBJECTIVE: This 82 year old WHITE/ M was hospitalized 09/19/17 with acute bronchitis. The patient seems to be doing better. REVIEW OF SYSTEMS: CONSTITUTIONAL: No night sweats. No fatigue, malaise, lethargy. No fever or chills. HEENT: Eyes: No visual changes. No eye pain. No eye discharge. ENT: No runny nose. No epistaxis. No sinus pain. No odynophagia. No congestion. RESPIRATORY: No cough, no congestion. No hemoptysis. No shortness of breath. CARDIOVASCULAR: No angina symptoms. No CHF symptoms. No atypical chest pain for CAD. No palpitations. No orthopnea.. GASTROINTESTINAL: Appetite improved. No abdominal pain. No nausea or vomiting. No diarrhea or constipation. No hematemesis. No hematochezia. GENITOURINARY: No urgency. No frequency. No dysuria. No hematuria. No obstructive symptoms. No discharge. No pain. No significant abnormal bleeding. MUSCULOSKELETAL: No musculoskeletal pain; no joint swelling. NEUROLOGICAL: Awake, alert, oriented to time, place and person. No headache. No neck pain. No syncope. No seizures. No dizziness. PSYCHIATRIC: Not anxious. No depression. No suicidal thoughts. No homicidal thoughts. SKIN: No rash. No lesions. No wounds. ENDOCRINE: No unexplained weight loss. No weight gain. HEMATOLOGIC/LYMPHATIC: No anemia. No purpura. No petechiae. No prolonged or excessive bleeding. No palpable lymph nodes. PHYSICAL EXAMINATION: GENERAL: The patient is awake, alert and oriented, sitting in bed in no distress. VITAL SIGNS: Temperature 97.9 F, Pulse 76, Respiratory Rate 22, BP 117/72, Pulse Ox 98% HEENT: Head normocephalic, atraumatic. Eyes: Extraocular muscles are intact. Pupils are equal, round and reactive to light and accommodation. Ears: No lesions. Nose appeared normal. Throat: No exudate or erythema. NECK: Supple. No JVD, no carotid bruit. No lymphadenopathy or thyromegaly. LUNGS: Decreased breath sounds with mild wheeze. Percussion note normal. Chest symmetrical. HEART: S1, S2, no S3. No murmurs. No cyanosis or clubbing. No ascites. Pulses: Dorsalis pedis and posterior tibial pulses +1 to +2 both sides. ABDOMEN: Soft. Non-tender. Bowel sounds active. No CVA tenderness. No mass felt. EXTREMITIES: No pedal edema. Full range of motion of all extremities, equal. NEUROLOGIC: No focal deficit. Cranial nerves II through XII are grossly intact. No headache, no double vision or headache. SKIN: Warm and dry. Intact. Turgor-normal. LYMPHATIC: No palpable lymph nodes/no lymphedema. MUSCULOSKELETAL: Normal joints with no swelling. Muscle tone is normal. LAB REVIEW: 09/20/17 01:00 09/20/17 01:00 09/20/17 01:00: Sodium 135 L, Potassium 4.6, Chloride 101, Carbon Dioxide 22 L, Anion Gap 16.6, BUN 33 H, Creatinine 1.49 H, Estimated GFR (MDRD) 45.00, BUN/ Creatinine Ratio 22.14, Glucose 287 H D, Calcium 8.4, Total Bilirubin 0.3, AST 13 L, ALT 21, Alkaline Phosphatase 76, Total Protein 5.5 L, Albumin 2.7 L, Globulin 2.8, Albumin/Globulin Ratio 0.96 09/20/17 01:00: PT 24.1 H, INR 2.47 09/20/17 01:00: WBC 10.80 H, RBC 5.22, Hgb 14.8, Hct 44.6, MCV 85.4, MCH 28.4, MCHC 33.2, RDW Coeff of Tiffany 15.8 H, Plt Count 259, Immature Gran % (Auto) 0.6, Neut % (Auto) 79.5, Lymph % (Auto) 15.7, [place] % (Auto) 3.3, Eos % (Auto) 0.6, Baso % (Auto) 0.3, Immature Gran # (Auto) 0.1, Neut # (Auto) 8.6 H, Lymph # ( Auto) 1.7, [place] # (Auto) 0.4, Eos # (Auto) 0.1, Baso # (Auto) 0.0 09/20/17 00:30: Total Creatine Kinase 20, Troponin I 0.0140 09/19/17 17:30: Urine Color Yellow, Urine Clarity Clear, Urine pH 5.5, Ur Specific [place] 1.020, Urine Protein Trace, Urine Glucose (UA) 2+, Urine Ketones Negative, Urine Blood Trace-intact, Urine Nitrite Negative, Urine Bilirubin Negative, Urine Urobilinogen 0.2, Ur Leukocyte Esterase 1+, Urine Microscopic RBC 0-2, Urine Microscopic WBC 5-10, Ur Squamous Epith Cells Not present, Urine Bacteria 1+ 09/19/17 16:05: Sodium 137, Potassium 4.4, Chloride 101, Carbon Dioxide 25, Anion Gap 15.4, BUN 33 H, Creatinine 1.43 H, Estimated GFR (MDRD) 48.00, BUN/ Creatinine Ratio 23.07, Glucose 215 H, Calcium 8.7, Total Bilirubin 0.4, AST 15 , ALT 23, Alkaline Phosphatase 87, Total Creatine Kinase 22, Troponin I < 0.0100 , Total Protein 6.2, Albumin 3.1 L, Globulin 3.1, Albumin/Globulin Ratio 1.00 09/19/17 16:05: WBC 10.24 H, RBC 5.51, Hgb 15.7, Hct 46.8, MCV 84.9, MCH 28.5, MCHC 33.5, RDW Coeff of Tiffany 15.9 H, Plt Count 256, Immature Gran % (Auto) 0.4, Neut % (Auto) 60.0, Lymph % (Auto) 27.4, [place] % (Auto) 9.2, Eos % (Auto) 2.7, Baso % (Auto) 0.3, Immature Gran # (Auto) 0.0, Neut # (Auto) 6.1, Lymph # (Auto ) 2.8, [place] # (Auto) 0.9, Eos # (Auto) 0.3, Baso # (Auto) 0.0 ASSESSMENT: 1. Acute bronchitis/pneumonitis with history of pneumonia 6 months ago 2. Atrial fibrillation 3. Diabetes mellitus Type 2 (blood sugar elevated due to steroids) PLAN: 1. D/C IV fluids after this bag finishes 2. Regular diet 3. Sliding scale with coverage 4. D/C Glyburide 5. Continue medications 6. Toradol 30 mg IV now and q.8 p.m. 7. Daily CBC, CMP 8. Januvia 50 mg for kidney function (if insurance approved) Plan and coordination of the patient's care discussed in the presence of Senior Analytic Consultant and nurse. CONDITION: Stable SCRIBED BY: POLLO LEON Insole Lip Turner scribed while in presence of service performed by Dr. ЕЛЕНА ARTHUR on 09/20/17 ([id number])
[2017-09-20] MEDS: JANUVIA PO SCH (12:53)
[2017-09-20] MEDS ORDERED: COUMADIN PO SCH (17:00)
[2017-09-20] MEDS: ZOCOR PO SCH (20:14)
[2017-09-20] MEDS: FLONASE NAS SCH (20:14)
[2017-09-21] MEDS: SOLU-CORTEF 250 MG IVP SCH ×3 (04:26→22:04)
[2017-09-21] MEDS: XOPENEX 1.25 MG NEB SCH ×4 (04:40→22:42)
[2017-09-21] MEDS: HUMULIN R SUBCUT PRN ×4 (05:52→20:48)
[2017-09-21] MEDS: ROCEPHIN 1 GM in SODIUM CHLORIDE 50 ML IV SCH (08:25)
[2017-09-21] MEDS: ZESTRIL PO SCH (08:26)
[2017-09-21] MEDS: ASPIRIN EC PO SCH (08:27)
[2017-09-21] MEDS: GLUCOPHAGE PO SCH (08:27)
[2017-09-21] MEDS: CORDARONE PO SCH (08:28)
[2017-09-21] MEDS: JANUVIA PO SCH (08:28)
[2017-09-21] MEDS: TUSSIONEX PO SCH ×2 (08:29→20:48)
[2017-09-21] MEDS: COUMADIN PO SCH (08:29)
--- NOTE | 2017-09-21 09:09 | PCM.PROG ---
Attending Provider: ATTENDING PROVIDER: Dr. ЕЛЕНА ARTHUR This patient is seen with Rosa Maria Christianson, Nurse Practitioner. DATE OF SERVICE: 09/21/17 SUBJECTIVE: This 82 year old WHITE/ M was hospitalized 09/19/17. The patient is sitting in bed, alert. Cough slightly improved. He is afebrile. He has not been sleeping very well. REVIEW OF SYSTEMS: CONSTITUTIONAL: Weakness. No night sweats. No malaise, lethargy. No fever or chills. HEENT: Eyes: No visual changes. No eye pain. No eye discharge. ENT: No runny nose. No epistaxis. No sinus pain. No odynophagia. No congestion. RESPIRATORY: Cough. No congestion. No hemoptysis. No shortness of breath. CARDIOVASCULAR: No angina symptoms. No CHF symptoms. No atypical chest pain for CAD. No palpitations. No orthopnea.. GASTROINTESTINAL: No abdominal pain. No nausea or vomiting. No diarrhea or constipation. No hematemesis. No hematochezia. GENITOURINARY: No urgency. No frequency. No dysuria. No hematuria. No obstructive symptoms. No discharge. No pain. No significant abnormal bleeding. MUSCULOSKELETAL: No musculoskeletal pain; no joint swelling. NEUROLOGICAL: Awake, alert, oriented to time, place and person. No headache. No neck pain. No syncope. No seizures. No dizziness. PSYCHIATRIC: Not anxious. No depression. No suicidal thoughts. No homicidal thoughts. SKIN: No rash. No lesions. No wounds. ENDOCRINE: No unexplained weight loss. No weight gain. HEMATOLOGIC/LYMPHATIC: No anemia. No purpura. No petechiae. No prolonged or excessive bleeding. No palpable lymph nodes. PHYSICAL EXAMINATION: GENERAL: The patient is awake, alert and oriented, sitting in bed in no distress. VITAL SIGNS: Temperature 97.9 F, Pulse 109, Respiratory Rate 20, BP 120/63, Pulse Ox 96% HEENT: Head normocephalic, atraumatic. Eyes: Extraocular muscles are intact. Pupils are equal, round and reactive to light and accommodation. Ears: No lesions. Nose appeared normal. Throat: No exudate or erythema. NECK: Supple. No JVD, no carotid bruit. No lymphadenopathy or thyromegaly. LUNGS: Diminished breath sounds bilaterally. Clear to auscultation. Percussion note normal. Chest symmetrical. HEART: S1, S2, no S3. No murmurs. No cyanosis or clubbing. No ascites. Pulses: Dorsalis pedis and posterior tibial pulses +1 to +2 both sides. ABDOMEN: Soft. Non-tender. Bowel sounds active. No CVA tenderness. No mass felt. EXTREMITIES: No edema. Full range of motion of all extremities, equal. NEUROLOGIC: No focal deficit. Cranial nerves II through XII are grossly intact. No headache, no double vision or headache. SKIN: Not dry. Intact. Turgor-normal. LYMPHATIC: No palpable lymph nodes/no lymphedema. MUSCULOSKELETAL: Normal joints with no swelling. Muscle tone is normal. LAB REVIEW: 09/21/17 04:30 09/21/17 04:30 09/21/17 04:30: Sodium 132 L, Potassium 4.1, Chloride 99, Carbon Dioxide 20 L, Anion Gap 17.1, BUN 30 H, Creatinine 1.45 H, Estimated GFR (MDRD) 47.00, BUN/ Creatinine Ratio 20.68, Glucose 445 H, Calcium 8.7, Total Bilirubin 0.3, AST 11 L, ALT 20, Alkaline Phosphatase 78, Total Protein 5.3 L, Albumin 2.7 L, Globulin 2.6, Albumin/Globulin Ratio 1.04 09/21/17 04:30: PT 26.6 H, INR 2.74 09/21/17 04:30: WBC 15.92 H D, RBC 4.63 L, Hgb 13.3 L, Hct 39.3 L, MCV 84.9, MCH 28.7, MCHC 33.8, RDW Coeff of Tiffany 15.7 H, Plt Count 226, Immature Gran % ( Auto) 0.6, Neut % (Auto) 89.5, Lymph % (Auto) 5.2 L, [place] % (Auto) 4.6, Eos % ( Auto) 0.0, Baso % (Auto) 0.1, Immature Gran # (Auto) 0.1, Neut # (Auto) 14.3 H, Lymph # (Auto) 0.8, [place] # (Auto) 0.7, Eos # (Auto) 0.0, Baso # (Auto) 0.0 09/20/17 08:10: Influ A Molecular Assay Negative by naat, Influ B Molecular Assay Negative by naat ASSESSMENT: 1. Acute bronchitis/pneumonitis with history of pneumonia 6 months ago 2. Atrial fibrillation 3. Diabetes mellitus Type 2 (blood sugar elevated due to steroids) PLAN: 1. Decrease Solu-Cortef to q.12 2. Ativan 1 mg at bedtime Plan and coordination of the patient's care discussed in the presence of Mobile Solutions Architect and nurse. CONDITION: Stable SCRIBED BY: POLLO LEON Restrike Hammer Operator scribed while in presence of service performed by Dr. Arthur/Rosa Maria Christianson APRN on 09/21/17 ([id number])
[2017-09-21] MEDS: FLONASE NAS SCH (20:47)
[2017-09-21] MEDS: ZOCOR PO SCH (20:48)
[2017-09-21] MEDS ORDERED: ATIVAN PO SCH (21:00)
[2017-09-22] MEDS: XOPENEX 1.25 MG NEB SCH (04:44)
[2017-09-22 05:16] VITALS: BP 140/71; TEMP 97.5
[2017-09-22] MEDS: HUMULIN R SUBCUT PRN (05:31)
[2017-09-22] MEDS: ROCEPHIN 1 GM in SODIUM CHLORIDE 50 ML IV SCH (09:17)
[2017-09-22] MEDS: ZESTRIL PO SCH (09:17)
[2017-09-22] MEDS: ASPIRIN EC PO SCH (09:17)
[2017-09-22] MEDS: TUSSIONEX PO SCH (09:17)
[2017-09-22] MEDS: JANUVIA PO SCH (09:17)
[2017-09-22] MEDS: CORDARONE PO SCH (09:17)
[2017-09-22] MEDS: COUMADIN PO SCH (09:18)
[2017-09-22] MEDS: GLUCOPHAGE PO SCH (09:18)
[2017-09-22] MEDS: SOLU-CORTEF 250 MG IVP SCH (10:05)
--- NOTE | 2017-09-22 10:55 | CM.DICTOOL ---
ADMISSION: 09/19/17 15:29 DISCHARGE: 09/22/17 DATE OF SERVICE: 09/22/17 FINAL DIAGNOSIS ACUTE BRONCHITIS/PNEUMONITIS PLEURITIC PAIN, RESOLVED DEHYDRATION, IMPROVED ATRIAL FIBRILLATION (COUMADIN) DM, TYPE 2 CAD AND HISTORY OF [place], S/P CABG 4 VESSEL, 05/12/14 DYSLIPIDEMIA HYPERTENSION BPH ARTHRITIS BILATERAL INGUINAL HERNIA REPAIR TOTAL LEFT KNEE ARTHROPLASTY FORMER SMOKER, NONE SINCE 1971 LAST 2-D AND M-MODE ECHO AT [facility] 06/12/17 LVH AND LEFT ATRIAL CAVITY ENLARGEMENT NORMAL VALVES MILD AORTIC REGURGITATION HYPOKINETIC SEPTUM LVEF 46% LAST VITALS Temp Pulse Resp BP Pulse Ox 97.5 F L 91 H 20 140/71 97 09/22/17 05:16 09/22/17 05:16 09/22/17 05:16 09/22/17 05:16 09/22/17 05:16 TAKE THESE MEDICATIONS AT HOME Albuterol Sulfate (Proair) 2 Puffs IH tid until cough is improved Amiodarone HCl (Cordarone) 200 mg PO DAILY [facility] Last Admin: 09/22/17 09:17 Dose: 200 mg Chlorphenir/Hydrocodone Polistirex (Tussionex) 5 ml PO Q12HR [facility] Last Admin: 09/22/17 09:17 Dose: 5 ml Fluticasone Propionate (Flonase) 2 spray KARLA BEDTIME [facility] Last Admin: 09/21/17 20:47 Dose: 2 spray Keflex 500 mg PO BID x 7 days Lisinopril (Zestril) 5 mg PO DAILY [facility] Last Admin: 09/22/17 09:17 Dose: 5 mg Metformin HCl (Glucophage) 500 mg PO DAILYWM [facility] Last Admin: 09/22/17 09:18 Dose: 500 mg Prednisone 20 mg PO BID X2 DAYS, Then 20 mg PO DAILY X 5 DAYS Simvastatin (Zocor) 40 mg PO BEDTIME [facility] Last Admin: 09/21/17 20:48 Dose: 40 mg Sitagliptin Phosphate (Januvia) 50 mg PO DAILY [facility] Last Admin: 09/22/17 09:17 Dose: 50 mg Warfarin Sodium (Coumadin) 5 mg PO TUSA@0900 [facility] Warfarin Sodium (Coumadin) 2.5 mg PO SUMOWETHFR@0900 [facility] Last Admin: 09/22/17 09:18 Dose: 2.5 mg MEDICATION CHANGES MADE DURING THIS STAY Discontinue GLYBURIDE See new prescriptions ALLERGIES No Known Allergies Allergy (Verified 11/16/15 08:59) NEW PRESCRIPTIONS: DO NOT TAKE YOUR GLYBURIDE JANUVIA 50 MG, TAKE ONE TABLET BY MOUTH DAILY (PHONED IN TO [facility]) KELFEX 500 MG, TAKE ONE CAPSULE BY MOUTH TWICE DAILY FOR 7 DAYS PREDNISONE 20 MG, TAKE ONE TAB TWICE DAILY WITH FOOD FOR 2 DAYS, THEN DAILY FOR 5 DAYS TUSSIONEX 5 ML, TAKE ONE TEASPOON BY MOUTH TWICE DAILY IF NEEDED FOR COUGHING PROAIR, TAKE TWO PUFFS THREE TIMES DAILY UNTIL YOUR COUGH IS IMPROVED SMOKING: FORMER SMOKER NONE SINCE 1971 DISEASE SPECIFIC EDUCATION: BRONCHITIS CHRONIC LUNG DISEASE DIABETES HOME MEDICATIONS AND CHANGES NEW PRESCRIPTONS POSSIBLE ADVERSE EFFECTS OF UNDERWRITING CONSULTANT USE OF STEROIDS FOLLOW UP ACTIVITY AFTER DISCHARGE LAB REVIEW: 09/22/17 06:00 09/22/17 06:00 09/22/17 06:00: Sodium 131 L, Potassium 4.3, Chloride 101, Carbon Dioxide 19 L, Anion Gap 15.3, BUN 33 H, Creatinine 1.56 H, Estimated GFR (MDRD) 43.00, BUN/ Creatinine Ratio 21.15, Glucose 402 H, Calcium 9.0, Total Bilirubin 0.3, AST 14 L, ALT 24, Alkaline Phosphatase 88, Total Protein 5.8, Albumin 2.9 L, Globulin 2.9, Albumin/Globulin Ratio 1.00 09/22/17 06:00: WBC 18.78 H, RBC 4.89, Hgb 14.1, Hct 41.7 L, MCV 85.3, MCH 28.8 , MCHC 33.8, RDW Coeff of Tiffany 16.2 H, Plt Count 231, Immature Gran % (Auto) 1.1 , Neut % (Auto) 89.4, Lymph % (Auto) 6.6 L, [place] % (Auto) 2.7, Eos % (Auto) 0.0 , Baso % (Auto) 0.2, Immature Gran # (Auto) 0.2, Neut # (Auto) 16.8 H, Lymph # ( Auto) 1.2, [place] # (Auto) 0.5, Eos # (Auto) 0.0, Baso # (Auto) 0.0 PLAN: DISCHARGE HOME TODAY RETURN TO SEE DR. ARTHUR IN HIS OFFICE ON 09/28/17 AT 9 A.M. RESUME YOUR HOME MEDICATIONS PER LIST PROVIDED BY THE NURSING STAFF DO NOT TAKE YOUR GLYBURIDE NEW PRESCRIPTIONS JANUVIA 50 MG, TAKE ONE TABLET BY MOUTH DAILY (PHONED IN TO [facility]) KELFEX 500 MG, TAKE ONE CAPSULE BY MOUTH TWICE DAILY FOR 7 DAYS PREDNISONE 20 MG, TAKE ONE TAB TWICE DAILY WITH FOOD FOR 2 DAYS, THEN DAILY FOR 5 DAYS TUSSIONEX 5 ML, TAKE ONE TEASPOON BY MOUTH TWICE DAILY IF NEEDED FOR COUGHING PROAIR, TAKE TWO PUFFS THREE TIMES DAILY UNTIL YOUR COUGH IS IMPROVED ACTIVITY GET PLENTY OF REST AT HOME. GRADUALLY INCREASE YOUR ACTIVITY LEVEL ACCORDING TO YOUR TOLERATION AVOID ENVIRONMENTAL POLLUTANTS (MOWING GRASS, SMOKE, ETC.) THAT WOULD MAKE YOUR BREATHING AND COUGHING WORSE DIET CONSISTENT CARBS SUMMARY THE PATIENT IS ALERT AND ORIENTED X3. HE IS INDEPENDENT WITH ADL'S AND RESIDES AT HOME WITH HIS SPOUSE. HE HAS A GLUCOMETER AND TESTING SUPPLIES FOR MONITORING HIS BLOOD SUGARS AT HOME. HE DESIRES TO RETURN HOME AT DISCHARGE. THE SKIN IS INTACT AND WITHOUT DECUBITUS ULCERS. TURGOR IS GOOD. HYDRATION AND NUTRITIONAL STATUS ARE IMPROVED SINCE ADMISSION. MR. ORANTES TELLS US HE IS FEELING BETTER AND IS AWARE AND AGREEABLE FOR TODAY'S DISCHARGE. WE WILL FOLLOW HIM THROUGH THE OFFICE. CURRENT CODE STATUS FULL CODE LIAT MELCHOR APRN ЕЛЕНА ARTHUR M.D.
[2017-09-23] MEDS ORDERED: COUMADIN PO SCH (09:00)
--- NOTE | 2017-09-25 14:34 | PN ---
DATE OF SERVICE: 09/22/17 SUBJECTIVE: The patient was seen and examined with the nurse practitioner. The patient's pneumonitis is much better. He is gaining strength. Lungs are clear. PHYSICAL EXAMINATION: HEENT: Head normocephalic, atraumatic. Eyes: Extraocular muscles are intact. Pupils are equal, round and reactive to light and accommodation. Ears: No lesions. Nose appeared normal. Throat: No exudate or erythema. NECK: Supple. No JVD, no carotid bruit. No lymphadenopathy or thyromegaly. LUNGS: Clear to auscultation. Percussion note normal. Chest symmetrical. HEART: S1, S2, no S3. No murmurs. No cyanosis or clubbing. No ascites. Pulses: Dorsalis pedis and posterior tibial pulses +1 to +2 both sides. ABDOMEN: Soft. Nontender. Bowel sounds active. No CVA tenderness. No mass felt. EXTREMITIES: No edema. Full range of motion of all extremities, equal. NEUROLOGIC: No focal deficit. Cranial nerves II through XII are grossly intact. No headache, no double vision or headache. SKIN: Not dry. Intact. Turgor - normal. LYMPHATIC: No palpable lymph nodes/no lymphedema. MUSCULOSKELETAL: Normal joints with no swelling. Muscle tone is normal. PLAN: 1. The patient's condition is improving. He will be discharged home with antibiotics, nebs treatment. CONDITION: Stable. TIME SPENT: More than 30 minutes. Plan and coordination of the patient's care discussed in the presence of nurse. KENNY
--- NOTE | 2017-09-25 14:36 | PN ---
CODING FOR BILLING 09/19/17 LEVEL 5 09/20/17 INTERMEDIATE 09/21/17 INTERMEDIATE 09/22/17 DISCHARGE MTDD
--- NOTE | 2017-09-27 13:18 | PN ---
DATE OF SERVICE: 09/21/17 SUBJECTIVE: The patient was hospitalized with pneumonitis and chronic lung disease. The patient's condition has improved. He is getting his strength back and his appetite is back. He is eating better and up and about afebrile. The patient was seen and examined with the Nurse Practitioner. The patient will likely be discharged home tomorrow with steroids and antibiotics. TIME SPENT: More than 30 minutes. Plan and coordination of the patient's care discussed in the presence of nurse. KENNY
--- NOTE | 2017-09-29 11:56 | DS ---
DATE OF SERVICE: 09/22/17 FINAL DIAGNOSIS: 1. ACUTE BRONCHITIS/PNEUMONITIS 2. PLEURITIC PAIN, RESOLVED 3. DEHYDRATION, IMPROVED 4. ATRIAL FIBRILLATION (COUMADIN) 5. DM, TYPE 2 6. CAD AND HISTORY OF [place], S/P CABG 4 VESSEL, 05/12/14 7. DYSLIPIDEMIA 8. HYPERTENSION 9. BPH 10. ARTHRITIS 11. BILATERAL INGUINAL HERNIA REPAIR 12. TOTAL LEFT KNEE ARTHROPLASTY 13. FORMER SMOKER, NONE SINCE 1971 DISCHARGE INSTRUCTIONS: RETURN TO SEE DR. ARTHUR IN HIS OFFICE ON 09/28/17 AT 9 A.M. MEDICATIONS AT DISCHARGE: Albuterol Sulfate (Proair) 2 Puffs IH tid until cough is improved Amiodarone HCl (Cordarone) 200 mg PO DAILY [facility] Last Admin: 09/22/17 09:17 Dose: 200 mg Chlorphenir/Hydrocodone Polistirex (Tussionex) 5 ml PO Q12HR [facility] Last Admin: 09/22/17 09:17 Dose: 5 ml Fluticasone Propionate (Flonase) 2 spray KARLA BEDTIME [facility] Last Admin: 09/21/17 20:47 Dose: 2 spray Keflex 500 mg PO BID x 7 days Lisinopril (Zestril) 5 mg PO DAILY [facility] Last Admin: 09/22/17 09:17 Dose: 5 mg Metformin HCl (Glucophage) 500 mg PO DAILYWM [facility] Last Admin: 09/22/17 09:18 Dose: 500 mg Prednisone 20 mg PO BID X2 DAYS, Then 20 mg PO DAILY X 5 DAYS Simvastatin (Zocor) 40 mg PO BEDTIME [facility] Last Admin: 09/21/17 20:48 Dose: 40 mg Sitagliptin Phosphate (Januvia) 50 mg PO DAILY [facility] Last Admin: 09/22/17 09:17 Dose: 50 mg Warfarin Sodium (Coumadin) 5 mg PO TUSA@0900 [facility] Warfarin Sodium (Coumadin) 2.5 mg PO SUMOWETHFR@0900 [facility] MEDICATION CHANGES MADE DURING THIS STAY Discontinue GLYBURIDE See new prescriptions NEW PRESCRIPTIONS: DO NOT TAKE YOUR GLYBURIDE JANUVIA 50 MG, TAKE ONE TABLET BY MOUTH DAILY (PHONED IN TO [facility]) KEFEX 500 MG, TAKE ONE CAPSULE BY MOUTH TWICE DAILY FOR 7 DAYS PREDNISONE 20 MG, TAKE ONE TAB TWICE DAILY WITH FOOD FOR 2 DAYS, THEN DAILY FOR 5 DAYS TUSSIONEX 5 ML, TAKE ONE TEASPOON BY MOUTH TWICE DAILY IF NEEDED FOR COUGHING PROAIR, TAKE TWO PUFFS THREE TIMES DAILY UNTIL YOUR COUGH IS IMPROVED DIET INSTRUCTIONS: CONSISTENT CARBS ACTIVITY: GET PLENTY OF REST AT HOME. GRADUALLY INCREASE YOUR ACTIVITY LEVEL ACCORDING TO YOUR TOLERATION AVOID ENVIRONMENTAL POLLUTANTS (MOWING GRASS, SMOKE, ETC.) THAT WOULD MAKE YOUR BREATHING AND COUGHING WORSE SMOKING: FORMER SMOKER NONE SINCE 1971 DISEASE SPECIFIC EDUCATION: BRONCHITIS CHRONIC LUNG DISEASE DIABETES HOME MEDICATIONS AND CHANGES NEW PRESCRIPTIONS POSSIBLE ADVERSE EFFECTS OF [facility] USE OF STEROIDS FOLLOW UP ACTIVITY AFTER DISCHARGE HOSPITAL COURSE: This is an 82-year-old white male who was a direct admit from our office. He had been experiencing cough and congestion for the past several weeks. He had been placed on a Z-Pack and Prednisone for 5 days and then came back to the office, was placed on Keflex and Prednisone. On the day of admission, he had finished his five days of Prednisone and was still on his Keflex. He was weak, short of breath, experiencing pain with coughing. He has a history of atrial fibrillation and diabetes mellitus Type 2. He is a nonsmoker. He was hospitalized back in the Winter for pneumonia. He was subsequently admitted, placed on Rocephin 1 gm IV daily along with Solu-Cortef 125 mg IV q.8hr, started on Xopenex neb treatments. His kidney function was slightly elevated revealing mild dehydration. He was started on IV fluids, NS at 75 cc/hr for the first 24 hours. He is Type [address] Arthur discontinued his Glipizide while here and started him on Januvia 50 mg. Over the past couple of days with nebs treatment, IV steroids and antibiotics, he seems to have improved. Chest x- ray did not show definitive pneumonia. After about 48 hours his pleuritic pain resolved. For the past 24 hours he has been eating and drinking well. He is still coughing some but it is significantly improved. He is no longer wheezing. He has been eating about 100% of his meals, able to get up and go to the bathroom. He doesn't have any oxygen or nebulizers at home. He declines a nebulizer machine. We will send him home with a ProAir inhaler that he is instructed to use at least 3 times a day until his cough resolves. He will also be sent home on Keflex 500 mg t.i.d. along with Prednisone 20 mg b.i.d. for 2 days and then daily for 5 days as well as Tussionex p.r.n. for cough and then ProAir to use as needed. He does have a history of atrial fibrillation which showed on his telemetry. He is on Coumadin. His INRs remain therapeutic between 2 and 3 during his hospitalization. He is discharged today in stable condition with improvement in cough. Also slight improvement in kidney function. He is afebrile, well-controlled. We will follow him up in the office next week. TIME SPENT: More than 60 minutes. KENNY
== END 2017-09-22 10:56 | disposition home or self-care (01) | DRG 195 ==
LOC: MEDSURG B 15:29
PROVIDERS: ADMIT Internal Medicine; ATTEND Internal Medicine
DX: J18.9 Pneumonia, unspecified organism (principal); J20.9 Acute bronchitis, unspecified; R07.81 Pleurodynia; E86.0 Dehydration; I48.91 Unspecified atrial fibrillation; I25.2 Old myocardial infarction; E11.9 Type 2 diabetes mellitus without complications; I25.10 Atherosclerotic heart disease of native coronary artery without angina pectoris; I10 Essential (primary) hypertension; E78.5 Hyperlipidemia, unspecified; M19.90 Unspecified osteoarthritis, unspecified site; N40.0 Benign prostatic hyperplasia without lower urinary tract symptoms; Z87.01 Personal history of pneumonia (recurrent); Z79.01 Long term (current) use of anticoagulants; Z79.84 Long term (current) use of oral hypoglycemic drugs; Z95.1 Presence of aortocoronary bypass graft; Z98.890 Other specified postprocedural states
CPT/HCPCS: 36415; 80053; 81001; 82550; 82962; 84484; 85025; 85610; 87070; 87086; 87186; 87502; 93005; 93010; 94640

== ENCOUNTER 2018-09-19 06:26 | Outpatient (CLI) | END 2018-09-19 06:27 | disposition home or self-care (01) | LOC: CAR 06:26 | PROVIDERS: ATTEND Internal Medicine | DX: R06.02 Shortness of breath (principal); R07.9 Chest pain, unspecified; Z95.1 Presence of aortocoronary bypass graft ==

== ENCOUNTER 2018-09-20 06:35 | Outpatient (CLI) ==
--- NOTE | 2018-09-20 10:45 | STRESSECHO ---
Date of Test: 09/20/18 Ordering Physician: DR. ЕЛЕНА ARTHUR Occupation: MAINTENANCE SVP [employer] Reason for Exam: SOB, CHEST PAIN, HX CABG Smoking History: QUIT 40+ YRS AGO Height: 67" Weight: 156 LBS Current Medications: METFORMIN, AMIODARONE, LIPITOR, COUMADIN, FLONASE, ZESTRIL , VENTOLIN, JANUVIA Resting EKG : SINUS RHYTHM/ NO ACUTE CHANGES Target Heart Rate: 118/139 S-T SEGMENT STAGE MPH/GRADE HEART RATE BPM BLOOD PRESSURE MMHG RHYTHM +/- ELEVATION DEPRESSION SYMPTOMS AT REST 80 BPM 140/72 MMHG SR X NONE 1 1.7/10% 95 BPM 128/80 MMHG SR X NONE 2 2.5/12% 3 3.4/14% 4 4.2/16% 5 5.0/18% Immediately After 106 BPM SR X NONE Minutes Post Exercise 4:00 92 BPM 150/62 MMHG SR X FATIGUE Minutes Post Exercise DURATION OF EXERCISE: 4:41 MAXIMUM HEART RATE REACHED: 106 BPM REASON FOR TERMINATION: FATIGUE 96% OXYGEN SATURATION WITH EXERCISE ON ROOM AIR METS 7.0 INTERPRETATION: 1. NO EVIDENCE OF ISCHEMIC ST-T WAVE 2. NO CHEST PAIN OR DISCOMFORT 3. FEW PAC'S NOTED WITH EXERCISE 4. BLOOD PRESSURE RESPONSE: ADEQUATE AKINETIC TO HYPOKINETIC SEPTUM AT REST AND IMPROVEMENT IN LEFT VENTRICLE CONTRACTILITY WITH EXERCISE MTDD
--- NOTE | 2018-09-20 10:47 | ECHOSTRESS ---
Date of Exam: 09/20/18 Ordering Physician: DR. ЕЛЕНА ARTHUR Reason for Echo: SOB, CHEST PAIN, HX CABG, STRESS TEST--NO ISCHEMIA M-Mode Normal Adult Results LV Dimensions Normal Adult Results AoV Opening excursions >1.6 LVEDD-base- 3.5-5.8 Ao root dimensions 2.0-3.7 LVESD-base- 3.1-4.6 L. Atrium dimensions 1.9-3.8 Post. Wall thickness 0.8-1.1 IV septum (thickness) 0.7-1.2 Post. Wall excursion 0.72-1.3 Septal motion Systolic motion R. Ventricular cavity 1.5-2.0 LVEF 60% Paradoxical septal wall motion 2-D: HYPOKINETIC/ AKINETIC SEPTUM AT REST AND POST EXERCISE LEFT VENTRICLE CONTRACTILITY IMPROVEMENT M-MODE: MV: AV: TV: PV: CHAMBER SIZE: WALL MOTION: HYPOKINETIC/ AKINETIC SEPTUM AT REST AND POST EXERCISE LEFT VENTRICLE CONTRACTILITY IMPROVEMENT PERICARDIUM: INTERPRETATION: 1. HYPOKINETIC/ AKINETIC SEPTUM AT REST AND POST EXERCISE LEFT VENTRICLE CONTRACTILITY IMPROVEMENT MTDD
--- NOTE | 2018-09-20 11:34 | ECHO2D ---
Date of Exam: 09/19/18 Ordering Physician: DR. ЕЛЕНА ARTHUR Room #: OP Reason for Echo: SOB, CHEST PAIN, HX CABG M-Mode Normal Adult Results LV Dimensions Normal Adult Results AoV Opening excursions >1.6 >1.6 LVEDD-base- 3.5-5.8 5.2 Ao root dimensions 2.0-3.7 3.7 LVESD-base- 3.1-4.6 L. Atrium dimensions 1.9-3.8 5.8 Post. Wall thickness 0.8-1.1 1.3 IV septum (thickness) 0.7-1.2 1.3 Post. Wall excursion 0.72-1.3 NORMAL Septal motion -- Systolic motion R. Ventricular cavity 1.5-2.0 NORMAL LVEF 60% 43% Paradoxical septal wall motion MAYBE 2-D : 2-D M Mode Echocardiogram was performed using apical four chamber and left parasternal long and short axis views. Mitral, tricuspid and aortic valves appear to be normal. Contractility of the left ventricle seems to be normal, so is the cavity size. Dilated Left atrial cavity size. Aortic root appears to be normal. There is no pericardial effusion. There is no thrombus noted in the left ventricular or left aortic cavity. No mitral valve prolapse noted. Akinetic septum. COLOR FLOW: MILD TO MODERATE AORTIC REGURGITATION M-MODE: MV: NORMAL AV: NORMAL TV: NORMAL PV: CHAMBER SIZE: DILATED LEFT ATRIAL CAVITY WALL MOTION: AKINETIC TO PARADOXICAL SEPTAL WALL PERICARDIUM: NORMAL INTERPRETATION: 1. 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 AKINETIC TO PARADOXICAL SEPTAL WALL --EJECTION FRACTION 43% 3. MILD TO MODERATE AORTIC REGURGITATION BY COLOR FLOW MTDD
== END 2018-09-20 06:36 | disposition home or self-care (01) ==
LOC: CAR 06:35
PROVIDERS: ATTEND Internal Medicine
DX: R06.02 Shortness of breath (principal); R07.9 Chest pain, unspecified; Z95.1 Presence of aortocoronary bypass graft

== ENCOUNTER 2018-10-02 08:38 | Outpatient (CLI) | payer OTHER | END 2018-10-02 08:39 | disposition home or self-care (01) | LOC: LAB 08:38 | PROVIDERS: ATTEND Internal Medicine | DX: Z13.818 Encounter for screening for other digestive system disorders (principal) ==

== ENCOUNTER 2020-02-05 08:30 | Inpatient (IN) ==
[2020-02-05] MEDS ORDERED: MORPHINE 2 MG/ML SYRINGE IVP STA (08:51)
--- NOTE | 2020-02-05 08:58 | ED.PDOC ---
General ED Provider: Dr. ELIZABETH LYNN MD Chief Complaint: Chest Pain Stated Complaint: pleuritic left chest pain for 2 days Time Seen by Physician: 08:51 Mode of Arrival: Walk-In Information Source: Patient Primary Care Provider: ЕЛЕНА ARTHUR Nursing and Triage Documentation Reviewed and Agree: Yes Does patient meet sepsis criteria?: No System Inflammatory Response Syndrome: Not Applicable Sepsis Protocol: For patient's 13 years and over: Temp is 96.8 and below OR 101 and greater Pulse >90 BPM Resp >20/minute Acutely Altered Mental Status Are patient's symptoms suggestive of a new infection, such as: -Pneumonia -Skin, Soft Tissue -Endocarditis -UTI -Bone, Joint Infection -Implantable Device -Acute Abdominal Infection -Wound Infection -Meningitis -Blood Stream Catheter Infection -Unknown Review of Systems Review Of Systems Constitutional: Reports No symptoms All Other Systems: Reviewed and Negative Physical Exam Physical Exam Appearance: Reports Well-appearing and No pain distress Eyes: Reports MIKAYLA, EOMI and Conjunctiva clear ENT: Reports Ears normal, Nose normal and Oropharynx normal Neck: Supple Respiratory: Reports Airway patent, Breath sounds clear and Breath sounds diminished (left base) Cardiovascular: Reports No rub, No murmur and Irregular rhythm GI/: Reports Soft and Nontender Musculoskeletal: Reports Normal strength, ROM intact, No edema and No calf tenderness Skin: Reports Warm and Dry Neurological: Reports Sensation intact, Motor intact, Reflexes intact, Cranial nerves intact, Alert and Oriented Psychiatric: Reports Affect appropriate and Mood appropriate Interpretation Radiology Interpretation Radiology Interpretation By: Radiologist Radiology Results: Positive Exam Interpreted: CXR Radiology Interpretation By: Radiologist Radiology Results: Negative [employer] Line Worker Time of [employer] Line Worker Interpretation: 12:00 Rate: Normal Rhythm: Other (atrial fibrillation) Ectopy: None EKG Interpretation Time of EKG #1: 08:34 Rate: Normal Rhythm: Other (atrial fibrillation) Interpretation: atrial fibrillation with ventricular rate 74, no acute ischemia or ectopy EKG Comparison: No significant changes Re-Evaluation Re-Evaluation Time of Re-Evaluation: 11:07 Status: Improved Vital Signs Stable: Yes Physician Notification Case Discussed Physician Notified: Dr Arthur Time of Notification: 11:31 Admit/Transition Orders Entered by ED Provider: Yes Reviewed With: Dr. Arthur Comments: Differential diagnosis of pleuritic chest pain, left sided; PE excluded; possible neoplasm noted on CT, right upper lobe. Patient has also added that he was taking recently other the counter CBD oil capsules, which may have impacted his INR. No evidence for myocardial ischemia based on EKG and normal troponin. Critical Care Note Critical Care Note Total Time (mins): 50 Course Course Hematology/Chemistry: 02/05/20 08:50 02/05/20 08:50 Orders, Labs, Meds: Lab Review 02/05/20 02/05/20 02/05/20 08:50 08:50 08:50 WBC 7.65 RBC 4.92 Hgb 13.8 L Hct 41.3 L MCV 83.9 MCH 28.0 MCHC 33.4 RDW Coeff of Tiffany 16.7 H Plt Count 250 Immature Gran % (Auto) 0.3 Neut % (Auto) 55.7 Lymph % (Auto) 32.3 [place] % (Auto) 8.9 Eos % (Auto) 2.4 Baso % (Auto) 0.4 Neut # (Auto) 4.3 Lymph # (Auto) 2.5 [place] # (Auto) 0.7 Eos # (Auto) 0.2 Baso # (Auto) 0.0 Immature Gran # (Auto) 0.0 PT 48.7 H INR 5.47 H* APTT 62.7 H Sodium 137.7 Potassium 4.03 Chloride 107.8 H Carbon Dioxide 22.8 Anion Gap 11.13 BUN 27.9 H Creatinine 1.40 H Estimated GFR (MDRD) 49.00 BUN/Creatinine Ratio 19.92 Glucose 96.6 Calcium 9.19 Total Bilirubin 0.54 AST 39.6 ALT 37.8 Alkaline Phosphatase 76.2 Troponin I < 0.012 Total Protein 6.84 Albumin 3.86 Globulin 2.98 Albumin/Globulin Ratio 1.29 D-Dimer Urine Color Urine Clarity Urine pH Ur Specific [place] Urine Protein Urine Glucose (UA) Urine Ketones Urine Blood Urine Nitrite Urine Bilirubin Urine Urobilinogen Ur Leukocyte Esterase 02/05/20 02/05/20 08:50 09:15 WBC RBC Hgb Hct MCV MCH MCHC RDW Coeff of Tiffany Plt Count Immature Gran % (Auto) Neut % (Auto) Lymph % (Auto) [place] % (Auto) Eos % (Auto) Baso % (Auto) Neut # (Auto) Lymph # (Auto) [place] # (Auto) Eos # (Auto) Baso # (Auto) Immature Gran # (Auto) PT INR APTT Sodium Potassium Chloride Carbon Dioxide Anion Gap BUN Creatinine Estimated GFR (MDRD) BUN/Creatinine Ratio Glucose Calcium Total Bilirubin AST ALT Alkaline Phosphatase Troponin I Total Protein Albumin Globulin Albumin/Globulin Ratio D-Dimer 1162.87 H Urine Color Yellow Urine Clarity Clear Urine pH 5.0 Ur Specific [place] 1.015 Urine Protein Negative Urine Glucose (UA) Negative Urine Ketones Negative Urine Blood Negative Urine Nitrite Negative Urine Bilirubin Negative Urine Urobilinogen 0.2 Ur Leukocyte Esterase Negative Orders Category Date Time Status ADMIT OBSERVATION [PLACE PATIENT OBSERVATION] .TO ADMISSION 02/05/20 11:31 Active MEDSURG (MONITORED BED) ACTIVITY .BR with BRP CARE 02/05/20 11:47 Active BLOOD GLUCOSE MONITORING 0630,1100,1700,2100 CARE 02/05/20 11:49 Active CASE MANAGEMENT CONSULT ONCE CARE 02/05/20 11:48 Active GIVE HS SNACK 2100 CARE 02/05/20 11:49 Active INTAKE & OUTPUT Q8HR CARE 02/05/20 11:47 Active NPO REMINDER: IMAGING ONCE CARE 02/05/20 09:54 Completed NPO REMINDER: IMAGING ONCE CARE 02/05/20 09:57 Completed TELEMETRY MONITORING TELE CARE 02/05/20 11:32 Active VITAL SIGNS Q4HR CARE 02/05/20 11:48 Active VITAL SIGNS Q8HR CARE 02/05/20 11:47 Active ADA 1800 NIK. DIET DIETARY 02/05/20 Lunch Ordered CARDIAC DIET DIETARY 02/05/20 Lunch Ordered HS SNACK DIETARY 02/05/20 Dinner Ordered ED HEAD OF LOSS PREVENTION APPLIED .ONCE EMERGENCY 02/05/20 08:51 Active ED IV/MEDIPORT/POWERPORT .ONCE EMERGENCY 02/05/20 08:51 Active CBC W/ AUTO DIFF Stat LAB 02/05/20 08:50 Completed COMPREHENSIVE METABOLIC PANEL Stat LAB 02/05/20 08:50 Completed D-DIMER Stat LAB 02/05/20 08:50 Completed PARTIAL THROMBOPLASTIN TIME Stat LAB 02/05/20 08:50 Completed PT WITH INR DAILY@0600 LAB 02/06/20 06:00 Ordered PT WITH INR DAILY@0600 LAB 02/07/20 06:00 Ordered PT WITH INR Stat LAB 02/05/20 08:50 Completed TROPONIN I Stat LAB 02/05/20 08:50 Completed URINALYSIS C & S IF INDICATED Stat LAB 02/05/20 09:15 Completed 0.9 % Sodium Chloride [Saline Flush] MEDS 02/05/20 08:51 Active 1 syr IVF PRN PRN Acetaminophen [Tylenol] MEDS 02/05/20 11:47 Active 650 mg PO Q4H PRN Lisinopril [Zestril] MEDS 02/05/20 11:34 Discontinued 20 mg PO ONCE STA Morphine Sulfate [Morphine 2 mg/ml Syringe] MEDS 02/05/20 08:51 Discontinued 2 mg IVP ONCE STA Sodium Chloride 0.9% [Sodium Chloride] 1,000 ml MEDS 02/05/20 11:32 Active IV BOLUS RESUSCITATION STATUS Routine OTHERS 02/05/20 11:47 Ordered CHEST, 2 VIEWS PA & LAT Stat RADS 02/05/20 08:[address] CHEST PE PROTOCOL Stat RADS 02/05/20 09:57 Completed Medications Generic Name Dose Route Start Last Admin Trade Name Freq PRN Reason Stop Dose Admin Acetaminophen 650 mg 02/05/20 11:47 Tylenol PO Q4H PRN Mild Pain Sodium Chloride 1,000 mls @ 1,000 mls/hr 02/05/20 11:32 02/05/20 11:46 Sodium Chloride IV 02/05/20 12:31 1,000 mls/hr BOLUS STA Administration Sodium Chloride 1 syr 02/05/20 08:51 02/05/20 11:46 Saline Flush IVF 1 syr PRN PRN Administration To flush IV Discontinued Medications Generic Name Dose Route Start Last Admin Trade Name Freq PRN Reason Stop Dose Admin Dexamethasone Sodium Phosphate 4 mg 02/05/20 11:59 Decadron 4 Mg/Ml Sdv IVP 02/05/20 12:00 ONCE STA Lisinopril 20 mg 02/05/20 11:34 02/05/20 11:45 Zestril PO 02/05/20 11:35 20 mg ONCE STA Administration Morphine Sulfate 2 mg 02/05/20 08:51 02/05/20 09:03 Morphine 2 Mg/Ml Syringe IVP 02/05/20 08:52 2 mg ONCE STA Administration Vital Signs: Temp Pulse Resp BP Pulse Ox 02/05/20 08:31 96.9 F L 71 18 178/88 H 98 LUNA Risk Score LUNA Risk Score: Risk Score Odds of by 30D 0 0.1 (0.1-0.2) 1 0.3 (0.2-0.3) 2 0.4 (0.3-0.5) 3 0.7 (0.6-0.9) 4 1.2 (1.0-1.5) 5 2.2 (1.9-2.6) 6 3.0 (2.5-3.6) 7 4.8 (3.8-6.1) Discharge Plan Discharge Patient Disposition: PLACED OBSERVATION Discharge Problem: Chest pain, Pulmonary neoplasm, Medication induced coagulopathy Atrial fibrillation Qualifiers: Atrial fibrillation type: longstanding persistent Qualified Code(s): I48.11 - Longstanding persistent atrial fibrillation ED Provider: ELIZABETH LYNN Condition: Stable Discharge Date/Time: 02/05/20 11:57
[2020-02-05 09:05] LABS: BASOPHILS % (AUTO) 0.4 % (0.0-3.0); EOSINOPHILS # (AUTO) 0.2 K/ul (0.0-0.7); EOSINOPHILS % (AUTO) 2.4 % (0.0-7.0); HEMATOCRIT 41.3 % (42.0-52.0); HEMOGLOBIN 13.8 g/dl (14.0-18.0); IMMATURE GRANULOCYTE % (AUTO) 0.3 % (0.0-5.0); LYMPHOCYTES # (AUTO) 2.5 K/uL (0.60-3.4); LYMPHOCYTES % (AUTO) 32.3 (10.0-50.0); MEAN CORPUSCULAR HGB CONC 33.4 (31.8-35.4); MEAN CORPUSCULAR VOLUME 83.9 fl (80.0-94.0); MONOCYTES # (AUTO) 0.7 K/uL (0.4-2.0); MONOCYTES % (AUTO) 8.9 (0-10); NEUTROPHILS # (AUTO) 4.3 K/ul (2.0-6.9); NEUTROPHILS % (AUTO) 55.7 % (42.2-75.2); PLATELET COUNT 250 10^3/uL (140-440); RDW COEFFICIENT OF VARIATION 16.7 % (11.6-14.8); RED BLOOD COUNT 4.92 10^6/ul (4.70-6.10); WHITE BLOOD COUNT 7.65 K/ul (4.2-10.2)
[2020-02-05 09:29] LABS: BILIRUBIN,URINE Negative (NEGATIVE); CLARITY,URINE Clear (CLEAR); COLOR,URINE Yellow (YELLOW); GLUCOSE, URINE (UA) Negative (NEGATIVE); KETONES,URINE Negative (NEGATIVE); LEUKOCYTE ESTERASE ,URINE Negative (NEGATIVE); NITRITE,URINE Negative (NEGATIVE); URINE, BLOOD Negative (NEGATIVE); UROBILINOGEN,URINE 0.2 (0.2)
[2020-02-05 09:38] LABS: PARTIAL THROMBOPLASTIN TIME 62.7 SEC (23.9-40.0)
--- NOTE | 2020-02-05 09:38 | DI ---
EXAM: Chest two view, frontal and lateral views. HISTORY: Chest pain. COMPARISON: 09/19/2017. FINDINGS: Sternotomy wires noted. Aortic atherosclerotic calcifications are present. The heart siz e is normal. There is no pulmonary vascular congestion. The lungs are clear. No pleural effusion o r pneumothorax is seen. No acute osseous abnormality identified. Degenerative changes present in th e spine. Since the prior study, there has been no significant interval change. IMPRESSION: No acute cardiopulmonary process.
[2020-02-05 09:43] LABS: ALANINE AMINOTRANSFERASE 37.8 U/L (0-50); ALBUMIN 3.86 g/dL (3.5-5.0); ALKALINE PHOSPHATASE 76.2 U/L (56-119); ASPARTATE AMINO TRANSFERASE 39.6 U/L (17-59); BILIRUBIN,TOTAL 0.54 mg/dL (0.2-1.3); BLOOD UREA NITROGEN 27.9 mg/dL (9-20); CALCIUM 9.19 mg/dL (8.4-10.2); CARBON DIOXIDE 22.8 mmol/L (22-30.0); CHLORIDE 107.8 mmol/L (98-107); GLUCOSE 96.6 mg/dL (74-106); SODIUM 137.7 mmol/L (134.5-145); TOTAL PROTEIN 6.84 g/dL (6.3-8.2)
[2020-02-05 09:48] LABS: PROTHROMBIN TIME 48.7 SEC (9.3-11.0)
[2020-02-05] MEDS ORDERED: SODIUM CHLORIDE 1,000 ML IV STA (11:32)
[2020-02-05] MEDS ORDERED: ZESTRIL PO STA (11:34)
--- NOTE | 2020-02-05 11:42 | CT ---
EXAM: CT Angiogram Chest. HISTORY: Chest pain. Elevated D-dimer. COMPARISON: Radiograph earlier the same day. Chest CT 05/11/2014. TECHNIQUE: Multiple axial images of the chest were obtained following intravenous administration of 100 mL of Visipaque 320, low osmolar. Images were reformatted in the sagittal and coronal plane. 3- D and maximum intensity projection reformatted images were created on an independent workstation. FINDINGS: A 4.3 x 1.9 cm focus of consolidation in the posterior right upper lobe on axial image 16 is present which does not contain air bronchograms. There is also consolidation in the medial right upper lobe at the same level measuring approximately 3.8 x 1.1 cm on axial image 19 which also does n ot contain air bronchograms. The lungs are otherwise clear save for dependent subsegmental atelectas is. No pleural effusion or pneumothorax identified. Nonenlarged mediastinal and hilar lymph nodes are present. No enlarged lymph nodes are seen. Some c alcified nodes are present. There has been prior sternotomy. Heart is mildly enlarged. There is no pericardial effusion. No pu lmonary arterial filling defect is seen. Limited images of the upper abdomen demonstrate no acute abnormality. Degenerative changes present in the spine. Old mild superior endplate compression deformity of T4 is present. Probable lipoma in the right upper back soft tissues on axial image 20. IMPRESSION: 1. No pulmonary embolus. 2. Right upper lobe consolidation without air bronchograms. Neoplasm not excluded. PET CT or percu taneous sampling should be considered.
[2020-02-05] MEDS ORDERED: TYLENOL PO PRN (11:47)
[2020-02-05] MEDS ORDERED: DECADRON 4 MG/ML SDV IVP STA (11:59)
[2020-02-05 13:07] VITALS: BMI 24.3
[2020-02-05] MEDS ORDERED: MORPHINE 4 MG/ML SYRINGE IVP PRN (13:56)
[2020-02-05] MEDS ORDERED: MORPHINE 4 MG/ML SYRINGE ONE (14:12)
[2020-02-05 17:15] LABS: CREATINE KINASE 85.7 U/L (55-170)
[2020-02-05] MEDS: HUMULIN R SUBCUT PRN (21:49)
[2020-02-06 00:26] LABS: CREATINE KINASE 80.7 U/L (55-170)
[2020-02-06 05:36] LABS: BASOPHILS % (AUTO) 0.2 % (0.0-3.0); HEMATOCRIT 37.9 % (42.0-52.0); HEMOGLOBIN 12.7 g/dl (14.0-18.0); IMMATURE GRANULOCYTE % (AUTO) 0.2 % (0.0-5.0); LYMPHOCYTES # (AUTO) 1.5 K/uL (0.60-3.4); LYMPHOCYTES % (AUTO) 22.7 (10.0-50.0); MEAN CORPUSCULAR HGB CONC 33.5 (31.8-35.4); MEAN CORPUSCULAR VOLUME 83.8 fl (80.0-94.0); MONOCYTES # (AUTO) 0.4 K/uL (0.4-2.0); MONOCYTES % (AUTO) 5.3 (0-10); NEUTROPHILS # (AUTO) 4.8 K/ul (2.0-6.9); NEUTROPHILS % (AUTO) 71.6 % (42.2-75.2); PLATELET COUNT 220 10^3/uL (140-440); RDW COEFFICIENT OF VARIATION 16.6 % (11.6-14.8); RED BLOOD COUNT 4.52 10^6/ul (4.70-6.10); WHITE BLOOD COUNT 6.65 K/ul (4.2-10.2)
[2020-02-06 05:48] LABS: ALANINE AMINOTRANSFERASE 32.2 U/L (0-50); ALBUMIN 3.39 g/dL (3.5-5.0); ALKALINE PHOSPHATASE 74.2 U/L (56-119); ASPARTATE AMINO TRANSFERASE 29.5 U/L (17-59); BILIRUBIN,TOTAL 0.26 mg/dL (0.2-1.3); BLOOD UREA NITROGEN 27.4 mg/dL (9-20); CALCIUM 8.96 mg/dL (8.4-10.2); CARBON DIOXIDE 20.7 mmol/L (22-30.0); CHLORIDE 105.4 mmol/L (98-107); CREATININE 1.24 mg/dL (0.60-1.10); GLUCOSE 356.8 mg/dL (74-106); SODIUM 134.5 mmol/L (134.5-145); TOTAL PROTEIN 6.04 g/dL (6.3-8.2)
[2020-02-06] MEDS: HUMULIN R SUBCUT PRN ×4 (06:19→22:14)
[2020-02-06 07:03] LABS: PROTHROMBIN TIME 56.2 SEC (9.3-11.0)
[2020-02-06] MEDS ORDERED: MEPHYTON PO ONE ×2 (08:15)
[2020-02-06] MEDS ORDERED: DECADRON 4 MG/ML SDV IM STA (08:25)
[2020-02-06] MEDS ORDERED: GLUCOPHAGE PO SCH (08:30)
--- NOTE | 2020-02-06 09:10 | PCM.PROG ---
Attending Provider: ATTENDING PROVIDER: Dr. ЕЛЕНА ARTHUR This patient is seen with Bri Olivier, Nurse Practitioner. DATE OF SERVICE: 02/06/20 SUBJECTIVE: This 84 year old /WHITE M was hospitalized 02/05/20. The patient is resting comfortably in the bed. He has had no further episodes of chest pain. He has had good appetite. Up and about in the room. Blood sugars have been running 280 and above. We will adjust medications. INR has increased today. We will give Vitamin K 1.25. We will schedule 2D echo to be done prior to discharge. REVIEW OF SYSTEMS: CONSTITUTIONAL: No night sweats. No fatigue, malaise, lethargy. No fever or chills. HEENT: Eyes: No visual changes. No eye pain. No eye discharge. ENT: No runny nose. No epistaxis. No sinus pain. No odynophagia. No congestion. RESPIRATORY: No cough, no congestion. No hemoptysis. No shortness of breath. CARDIOVASCULAR: No angina symptoms. No CHF symptoms. Chest pain-improved. No palpitations. No orthopnea.. GASTROINTESTINAL: No abdominal pain. No nausea or vomiting. No diarrhea or constipation. No hematemesis. No hematochezia. GENITOURINARY: No urgency. No frequency. No dysuria. No hematuria. No obstructiv e symptoms. No discharge. No pain. No significant abnormal bleeding. MUSCULOSKELETAL: No musculoskeletal pain; no joint swelling. NEUROLOGICAL: Awake, alert, oriented to time, place and person. No headache. No neck pain. No syncope. No seizures. No dizziness. PSYCHIATRIC: Not anxious. No depression. No suicidal thoughts. No homicidal thoughts. SKIN: No rash. No lesions. No wounds. ENDOCRINE: No unexplained weight loss. No weight gain. HEMATOLOGIC/LYMPHATIC: No anemia. No purpura. No petechiae. No prolonged or excessive bleeding. No palpable lymph nodes. PHYSICAL EXAMINATION: GENERAL: The patient is awake, alert and oriented, lying in bed in no distress. VITAL SIGNS: Temperature 98.1 F, Pulse 63, Respiratory Rate 16, BP 157/65, Pulse Ox 96% HEENT: Head normocephalic, atraumatic. Eyes: Extraocular muscles are intact. Pupils are equal, round and reactive to light and accommodation. Ears: No lesions. Nose appeared normal. Throat: No exudate or erythema. NECK: Supple. No JVD, no carotid bruit. No lymphadenopathy or thyromegaly. LUNGS: Diminished breath sounds. Clear to auscultation. Percussion note normal. Chest symmetrical. HEART: S1, S2, no S3. Atrial fibrillation. No murmurs. No cyanosis or clubbing. No ascites. Pulses: Dorsalis pedis and posterior tibial pulses +1 to +2 both sides. ABDOMEN: Soft. Non-tender. Bowel sounds active. No CVA tenderness. No mass felt. EXTREMITIES: No edema. Full range of motion of all extremities, equal. NEUROLOGIC: No focal deficit. Cranial nerves II through XII are grossly intact. No headache, no double vision or headache. SKIN: Not dry. Intact. Turgor-normal. LYMPHATIC: No palpable lymph nodes/no lymphedema. MUSCULOSKELETAL: Normal joints with no swelling. Muscle tone is normal. LAB REVIEW: 02/06/20 05:15 02/06/20 05:15 02/06/20 05:15: PT 56.2 H D, INR 6.36 H* 02/06/20 05:15: Sodium 134.5, Potassium 3.99, Chloride 105.4, Carbon Dioxide 20.7 L, Anion Gap 12.39, BUN 27.4 H, Creatinine 1.24 H, Estimated GFR (MDRD) 56.00, BUN/Creatinine Ratio 22.09, Glucose 356.8 H D, Calcium 8.96, Total Bilirubin 0.26, AST 29.5, ALT 32.2, Alkaline Phosphatase 74.2, Total Protein 6.04 L, Albumin 3.39 L, Globulin 2.65, Albumin/Globulin Ratio 1.27 02/06/20 05:15: WBC 6.65, RBC 4.52 L, Hgb 12.7 L, Hct 37.9 L, MCV 83.8, MCH 28.1, MCHC 33.5, RDW Coeff of Tiffany 16.6 H, Plt Count 220, Immature Gran % (Auto) 0.2, Neut % (Auto) 71.6, Lymph % (Auto) 22.7, [place] % (Auto) 5.3, Eos % (Auto) 0.0, Baso % (Auto) 0.2, Neut # (Auto) 4.8, Lymph # (Auto) 1.5, [place] # (Auto) 0.4, Eos # (Auto) 0.0, Baso # (Auto) 0.0, Immature Gran # (Auto) 0.0 02/05/20 16:55: Total Creatine Kinase 85.7, Troponin I < 0.012 02/05/20 09:15: Urine Color Yellow, Urine Clarity Clear, Urine pH 5.0, Ur Specific Eldridge 1.015, Urine Protein Negative, Urine Glucose (UA) Negative, Urine Ketones Negative, Urine Blood Negative, Urine Nitrite Negative, Urine Bilirubin Negative, Urine Urobilinogen 0.2, Ur Leukocyte Esterase Negative 02/05/20 08:50: D-Dimer 1162.87 H 02/05/20 08:50: Sodium 137.7, Potassium 4.03, Chloride 107.8 H, Carbon Dioxide 22.8, Anion Gap 11.13, BUN 27.9 H, Creatinine 1.40 H, Estimated GFR (MDRD) 49.00, BUN/Creatinine Ratio 19.92, Glucose 96.6, Calcium 9.19, Total Bilirubin 0.54, AST 39.6, ALT 37.8, Alkaline Phosphatase 76.2, Troponin I < 0.012, Total Protein 6.84, Albumin 3.86, Globulin 2.98, Albumin/Globulin Ratio 1.29 02/05/20 08:50: PT 48.7 H, INR 5.47 H*, APTT 62.7 H 02/05/20 08:50: WBC 7.65, RBC 4.92, Hgb 13.8 L, Hct 41.3 L, MCV 83.9, MCH 28.0, MCHC 33.4, RDW Coeff of Tiffany 16.7 H, Plt Count 250, Immature Gran % (Auto) 0.3, Neut % (Auto) 55.7, Lymph % (Auto) 32.3, [place] % (Auto) 8.9, Eos % (Auto) 2.4, Baso % (Auto) 0.4, Neut # (Auto) 4.3, Lymph # (Auto) 2.5, [place] # (Auto) 0.7, Eos # (Auto) 0.2, Baso # (Auto) 0.0, Immature Gran # (Auto) 0.0 02/05/20 00:08: Total Creatine Kinase 80.7, Troponin I < 0.012 ASSESSMENT: Please see below. 1. Atypical chest pain, cardiac enzymes all negative 2. Atrial fibrillation 3. Coagulopathy 4. History of coronary artery disease with CABG 5. Chronic kidney disease stage 3 PLAN: 1. 2D echo 2. Vitamin K 1.25mg 3. 1cc IM Decadron today 4. Continue to cover with sliding scale. 5. CBC and CMP, INR in the morning Plan and coordination of the patient's care discussed in the presence of Width Stripper and nurse. SCRIBED BY: Maranda ADAMS scribed while in presence of service performed by Dr. Arthur/Bri Olivier APRN on 02/06/20 ([id number])
[2020-02-06] MEDS: AMARYL PO SCH (09:29)
[2020-02-06] MEDS: CORDARONE PO SCH (09:30)
--- NOTE | 2020-02-06 10:00 | HP ---
DATE OF SERVICE: 02/05/2020 REASON FOR HOSPITALIZATION/HISTORY OF PRESENT ILLNESS: 84 year old white male who presented to the emergency room complaining of left sided chest pain worse with breathing in and out. He has a history of coronary artery disease. 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 Torres PAST SURGICAL HISTORY: Left knee replacement in 2010 CABG 2013 History of noncompliance with diet, lifestyle and medications. REVIEW OF SYSTEMS: CONSTITUTIONAL: No night sweats. No fatigue, malaise, lethargy. No fever or chills. Weakness. HEENT: Eyes: No visual changes. No eye pain. No eye discharge. ENT: No runny nose. No epistaxis. No sinus pain. No sore throat. No odynophagia. No ear pain. No congestion. RESPIRATORY: No cough, no congestion. No hemoptysis. Mild shortness of breath. CARDIOVASCULAR: No angina symptoms. No CHF symptoms. Chest pain pleuritic in nature. No palpitations. No PND. No orthopnea. GASTROINTESTINAL: No abdominal pain. No nausea or vomiting. No diarrhea or constipation. No hematemesis. No hematochezia. GENITOURINARY: No urgency. No frequency. No dysuria. No hematuria. No obstructive symptoms. No discharge. No pain. No significant abnormal bleeding. MUSCULOSKELETAL: No musculoskeletal pain. No joint swelling. No arthritis. NEUROLOGICAL: No headache. No neck pain. No syncope. No seizures. No dizziness. PSYCHIATRIC: Not anxious. No depression. No suicidal thoughts. No homicidal thoughts. SKIN: No rash. No lesions. No wounds. ENDOCRINE: No unexplained weight loss. No weight gain. HEMATOLOGIC/LYMPHATIC: No anemia. No purpura. No petechiae. No prolonged or excessive bleeding. No palpable lymph nodes. PERSONAL/FAMILY/SOCIAL HISTORY: He is and nonsmoker. No alcohol or illicit drug use. Still lives at home. Drives. MEDICATIONS: Amiodarone 200mg PO daily Metformin 500mg PO daily Coumadin 5mg PO TUSA Coumadin 2.5mg PO SUMOWETHFR Lipitor 20mg Po bedtime Amaryl 4mg PO daily ALLERGIES: No known allergies PHYSICAL EXAMINATION: GENERAL: The patient is alert and oriented. HEENT: Head normocephalic, atraumatic. Eyes: Extraocular muscles are intact. Pupils are equal, round and reactive to light and accommodation. Ears: No lesions. Nose appeared normal. Throat: No exudate or erythema. NECK: Supple. No JVD, no carotid bruit. No lymphadenopathy or thyromegaly. LUNGS: Diminished breath sounds bilaterally. Clear to auscultation. Percussion note normal. Chest symmetrical. HEART: S1, S2, no S3. No murmur. Irregular heart rate and rhythm. No cyanosis or clubbing. No ascites. Pulses: Dorsalis pedis and posterior tibial pulses +1 to +2 bilaterally. ABDOMEN: Soft. Nontender. Bowel sounds active. No CVA tenderness. No mass felt. EXTREMITIES: No edema. Full range of motion of all extremities, equal. NEUROLOGIC: No focal deficit. Cranial nerves II through XII are grossly intact. No headache, no double vision or headache. SKIN: Not dry. Intact. Turgor - normal. LYMPHATIC: No palpable lymph nodes/no lymphedema. MUSCULOSKELETAL: Normal joints with no swelling. Muscle tone is normal. LABS: Sodium 137, potassium 4.03, BUN 27.9, creatinine 1.4, ALT 39, AST 37, Troponin less than 0.012, total protein 6.84, D-Dime 1,162, INR 5.47 with a PT of 48.7, WBC 7.6, hgb 13.8, hct 41.3, plt count 250, urine is normal. Chest x-ray shows no acute process. CT of the chest due to chest pain, shortness of breath and elevated D-Dimer shows no pulmonary embolus. Right upper lobe consolidation without air bronchial grams neoplasm not excluded. PET CT or percutaneous sampling should be considered. ASSESSMENT: 1. Chest pain, atypical and pleuritic in nature 2. Hypercoagulation with INR of 5.47 3. History of coronary artery disease with CABG 4 Atrial fibrillation 5. Chronic kidney disease stage 3 PLAN: 1. We will admit 2. Routine telemetry orders 3. CBC and CMP daily 4. Hold Coumadin 5. Continue all other medications 6. 1cc Decadron IM daily 7. Will monitor glucose BID due to diabetes mellitus type 2 as well as hyperglycemia with steroid therapy 8. Oxygen at 1-2 liters as needed 9. T4 TSH 10. Regular diet 11. Fall precautions 12. Bleeding precautions Will follow closely. TIME SPENT: More than 70 minutes. MTDD
[2020-02-06] MEDS: FLOMAX PO SCH (10:35)
--- NOTE | 2020-02-06 10:56 | PN ---
DATE OF SERVICE: 02/06/20 SUBJECTIVE: The patient was seen and examined with the nurse practitioner. The patient's pain is much less, pleuritic type of pain was noted. The patient doesn't have any CHF. No coronary insufficiency. Cardiac markers are negative. EKG unchanged with no acute changes. Condition is improving. TIME SPENT: More than 30 minutes. Plan and coordination of the patient's care discussed in the presence of nurse. KENNY
[2020-02-07 05:24] LABS: BASOPHILS % (AUTO) 0.1 % (0.0-3.0); HEMATOCRIT 36.6 % (42.0-52.0); HEMOGLOBIN 12.4 g/dl (14.0-18.0); IMMATURE GRANULOCYTE # (AUTO) 0.1 (0.0-1.0); IMMATURE GRANULOCYTE % (AUTO) 0.4 % (0.0-5.0); LYMPHOCYTES # (AUTO) 2.2 K/uL (0.60-3.4); LYMPHOCYTES % (AUTO) 15.9 (10.0-50.0); MEAN CORPUSCULAR HGB CONC 33.9 (31.8-35.4); MEAN CORPUSCULAR VOLUME 82.6 fl (80.0-94.0); MONOCYTES # (AUTO) 0.7 K/uL (0.4-2.0); MONOCYTES % (AUTO) 5.3 (0-10); NEUTROPHILS # (AUTO) 10.8 K/ul (2.0-6.9); NEUTROPHILS % (AUTO) 78.3 % (42.2-75.2); PLATELET COUNT 239 10^3/uL (140-440); RDW COEFFICIENT OF VARIATION 16.3 % (11.6-14.8); RED BLOOD COUNT 4.43 10^6/ul (4.70-6.10); WHITE BLOOD COUNT 13.84 K/ul (4.2-10.2)
[2020-02-07 05:41] LABS: PROTHROMBIN TIME 23.4 SEC (9.3-11.0)
[2020-02-07 05:44] LABS: ALANINE AMINOTRANSFERASE 30.1 U/L (0-50); ALBUMIN 3.52 g/dL (3.5-5.0); ALKALINE PHOSPHATASE 70.5 U/L (56-119); ASPARTATE AMINO TRANSFERASE 25.5 U/L (17-59); BILIRUBIN,TOTAL 0.34 mg/dL (0.2-1.3); BLOOD UREA NITROGEN 30.5 mg/dL (9-20); CALCIUM 9.22 mg/dL (8.4-10.2); CARBON DIOXIDE 22.5 mmol/L (22-30.0); CHLORIDE 105.2 mmol/L (98-107); CREATININE 1.05 mg/dL (0.60-1.10); GLUCOSE 257.9 mg/dL (74-106); SODIUM 134.2 mmol/L (134.5-145); TOTAL PROTEIN 6.1 g/dL (6.3-8.2)
[2020-02-07] MEDS: HUMULIN R SUBCUT PRN ×2 (06:26→12:22)
[2020-02-07] MEDS: AMARYL PO SCH (08:27)
[2020-02-07] MEDS: FLOMAX PO SCH (08:27)
[2020-02-07] MEDS: CORDARONE PO SCH (08:27)
[2020-02-07] MEDS ORDERED: COUMADIN PO SCH ×2 (08:30→17:00)
[2020-02-07] MEDS ORDERED: COZAAR PO SCH (09:00)
--- NOTE | 2020-02-07 09:17 | PCM.PROG ---
Attending Provider: ATTENDING PROVIDER: Dr. ЕЛЕНА ARTHUR This patient is seen with Bri Olivier, Nurse Practitioner. DATE OF SERVICE: 02/07/20 SUBJECTIVE: This 84 year old /WHITE M was hospitalized 02/05/20. The patient is resting comfortably in the bed. Has continued to remain pain free. INR is back within normal limits this morning. We will consider resuming Coumadin. The patient is somewhat hypertensive this morning with systolic pressures 160 or greater. We will start Losartan 50mg daily. He will have an outpatient PET scan as recommended per CT angiogram of chest. The patient is to followup in the office next week. REVIEW OF SYSTEMS: CONSTITUTIONAL: No night sweats. No fatigue, malaise, lethargy. No fever or chills. HEENT: Eyes: No visual changes. No eye pain. No eye discharge. ENT: No runny nose. No epistaxis. No sinus pain. No odynophagia. No congestion. RESPIRATORY: No cough, no congestion. No hemoptysis. No shortness of breath. CARDIOVASCULAR: No angina symptoms. No CHF symptoms. Chest pain, resolved. No palpitations. No orthopnea.. GASTROINTESTINAL: No abdominal pain. No nausea or vomiting. No diarrhea or constipation. No hematemesis. No hematochezia. GENITOURINARY: No urgency. No frequency. No dysuria. No hematuria. No obstructive symptoms. No discharge. No pain. No significant abnormal bleeding. MUSCULOSKELETAL: No musculoskeletal pain; no joint swelling. NEUROLOGICAL: Awake, alert, oriented to time, place and person. No headache. No neck pain. No syncope. No seizures. No dizziness. PSYCHIATRIC: Not anxious. No depression. No suicidal thoughts. No homicidal thoughts. SKIN: No rash. No lesions. No wounds. ENDOCRINE: No unexplained weight loss. No weight gain. HEMATOLOGIC/LYMPHATIC: No anemia. No purpura. No petechiae. No prolonged or excessive bleeding. No palpable lymph nodes. PHYSICAL EXAMINATION: GENERAL: The patient is awake, alert and oriented, lying in bed in no distress. VITAL SIGNS: Temperature 97.7 F, Pulse 64, Respiratory Rate 16, BP 184/76, Pulse Ox 97% HEENT: Head normocephalic, atraumatic. Eyes: Extraocular muscles are intact. Pupils are equal, round and reactive to light and accommodation. Ears: No lesions. Nose appeared normal. Throat: No exudate or erythema. NECK: Supple. No JVD, no carotid bruit. No lymphadenopathy or thyromegaly. LUNGS: Diminished breath sounds. Clear to auscultation. Percussion note normal. Chest symmetrical. HEART: S1, S2, no S3. No murmurs. Atrial fibrillation. No cyanosis or clubbing. No ascites. Pulses: Dorsalis pedis and posterior tibial pulses +1 to +2 both sides. ABDOMEN: Soft. Non-tender. Bowel sounds active. No CVA tenderness. No mass felt. EXTREMITIES: No edema. Full range of motion of all extremities, equal. NEUROLOGIC: No focal deficit. Cranial nerves II through XII are grossly intact. No headache, no double vision or headache. SKIN: Not dry. Intact. Turgor-normal. LYMPHATIC: No palpable lymph nodes/no lymphedema. MUSCULOSKELETAL: Normal joints with no swelling. Muscle tone is normal. LAB REVIEW: 02/07/20 05:05 02/07/20 05:05 02/07/20 05:05: PT 23.4 H D, INR 2.52 D 02/07/20 05:05: Sodium 134.2 L, Potassium 4.07, Chloride 105.2, Carbon Dioxide 22.5, Anion Gap 10.57, BUN 30.5 H, Creatinine 1.05, Estimated GFR (MDRD) 68.00, BUN/Creatinine Ratio 29.04, Glucose 257.9 H D, Calcium 9.22, Total Bilirubin 0.34, AST 25.5, ALT 30.1, Alkaline Phosphatase 70.5, Total Protein 6.10 L, Albumin 3.52, Globulin 2.58, Albumin/Globulin Ratio 1.36 02/07/20 05:05: WBC 13.84 H D, RBC 4.43 L, Hgb 12.4 L, Hct 36.6 L, MCV 82.6, MCH 28.0, MCHC 33.9, RDW Coeff of Tiffany 16.3 H, Plt Count 239, Immature Gran % (Auto) 0.4, Neut % (Auto) 78.3 H, Lymph % (Auto) 15.9, [place] % (Auto) 5.3, Eos % (Auto) 0.0, Baso % (Auto) 0.1, Neut # (Auto) 10.8 H, Lymph # (Auto) 2.2, [place] # (Auto) 0.7, Eos # (Auto) 0.0, Baso # (Auto) 0.0, Immature Gran # (Auto) 0.1 ASSESSMENT: Please see below. 1. Atypical chest pain, cardiac enzymes all negative 2. Atrial fibrillation 3. Coagulopathy 4. History of coronary artery disease with CABG 5. Chronic kidney disease stage 3 PLAN: 1. The patient is stable for discharge 2. 2D echo today 3. Losartan 50mg daily 4. Continue Flomax 5. Outpatient PET scan as recommended by CT angiogram of the chest 6. We will resume Coumadin 7. Resume Metformin with lunch Plan and coordination of the patient's care discussed in the presence of Hotel Associate and nurse. SCRIBED BY: Maranda ADAMS scribed while in presence of service performed by Dr. Arthur/Bri Olivier APRN on 02/07/20 ([id number])
--- NOTE | 2020-02-07 11:06 | CM.DICTOOL ---
ADMISSION: 02/05/20 12:05 DISCHARGE: 2019 DATE OF SERVICE: 02/07/20 FINAL DIAGNOSIS ATYPICAL CHEST PAIN, CARDIAC ENZYMES ARE NEGATIVE, LIKELY PLEURITIC PAIN ATRIAL FIBRILLATION COAGULOPATHY- RESOLVED CAD WITH CABG HX CHRONIC KIDNEY DISEASE, STAGE 3 RIGHT UPPER LOBE CONSOLIDATIONS ,4.3 X 1.9 CM AND 3.8 X 1.1 CM WITHOUT AIR BRONCHOGRAMS ( CT ANGIOGRAM CHEST 02/05/20 ) HX: ACUTE BRONCHITIS/PNEUMONITIS ATRIAL FIBRILLATION (COUMADIN) DM, TYPE 2 CAD AND HISTORY OF [place], S/P CABG 4 VESSEL, 05/12/14 DYSLIPIDEMIA HYPERTENSION BPH ARTHRITIS FORMER SMOKER, NONE SINCE 1971 LAST 2-D AND M-MODE ECHO AT [facility] 06/12/17 LVH AND LEFT ATRIAL CAVITY ENLARGEMENT NORMAL VALVES MILD AORTIC REGURGITATION HYPOKINETIC SEPTUM LVEF 46% SURGICAL HX: BILATERAL INGUINAL HERNIA REPAIR TOTAL LEFT KNEE ARTHROPLASTY LAST VITALS Temp Pulse Resp BP Pulse Ox 97.7 F 64 16 184/76 H 97 02/07/20 05:42 02/07/20 05:42 02/07/20 05:42 02/07/20 05:42 02/07/20 05:42 TAKE THESE MEDICATIONS AT HOME Amiodarone HCl (Cordarone) 200 mg PO DAILY [facility] Last Admin: 02/07/20 08:27 Dose: 200 mg Glimepiride (Amaryl) 4 mg PO DAILYWM [facility] Last Admin: 02/07/20 08:27 Dose: 4 mg Losartan Potassium (Cozaar) 50 mg PO DAILY [facility] -- ( NEW) Last Admin: 02/07/20 08:27 Dose: 50 mg Metformin HCl (Glucophage) 500 mg PO DAILYWM [facility] (HAS BEEN ON HOLD FOLLOWING SCAN) Tamsulosin HCl (Flomax) 0.4 mg PO DAILY [facility] Last Admin: 02/07/20 08:27 Dose: 0.4 mg Warfarin Sodium (Coumadin) [facility] Warfarin Sodium (Coumadin) 5 mg PO TUSA [facility] LIPITOR 20 MG PO AT BEDTIME ALLERGIES No Known Allergies Allergy (Verified 02/05/20 08:36) DISCONTINUED MEDICATIONS NONE NEW PRESCRIPTIONS: Losartan Potassium (Cozaar) 50 mg PO DAILY [facility] -- ( NEW) Tamsulosin HCl (Flomax) 0.4 mg PO DAILY [facility] SMOKING: NON- APPLICABLE DISEASE SPECIFIC EDUCATION: CHEST PAIN COUMADIN LUNG CONSOLIDATIONS COVID LAB REVIEW: 02/07/20 05:05 02/07/20 05:05 02/07/20 05:05: PT 23.4 H D, INR 2.52 D 02/07/20 05:05: Sodium 134.2 L, Potassium 4.07, Chloride 105.2, Carbon Dioxide 22.5, Anion Gap 10.57, BUN 30.5 H, Creatinine 1.05, Estimated GFR (MDRD) 68.00, BUN/Creatinine Ratio 29.04, Glucose 257.9 H D, Calcium 9.22, Total Bilirubin 0.34, AST 25.5, ALT 30.1, Alkaline Phosphatase 70.5, Total Protein 6.10 L, Albumin 3.52, Globulin 2.58, Albumin/Globulin Ratio 1.36 02/07/20 05:05: WBC 13.84 H D, RBC 4.43 L, Hgb 12.4 L, Hct 36.6 L, MCV 82.6, MCH 28.0, MCHC 33.9, RDW Coeff of Tiffany 16.3 H, Plt Count 239, Immature Gran % (Auto) 0.4, Neut % (Auto) 78.3 H, Lymph % (Auto) 15.9, [place] % (Auto) 5.3, Eos % (Auto) 0.0, Baso % (Auto) 0.1, Neut # (Auto) 10.8 H, Lymph # (Auto) 2.2, [place] # (Auto) 0.7, Eos # (Auto) 0.0, Baso # (Auto) 0.0, Immature Gran # (Auto) 0.1 PLAN: DISCHARGE HOME TODAY, 2019, INDEPENDENT WITH ACTIVITY: UP TOLERATED WITH FREQUENT REST PERIODS NO STRENUOUS ACTIVITY RECOGNIZE AND FOLLOW SOCIAL DISTANCING GUIDELINES WHEN OUT IN THE PUBLIC DIET: 1800 ADA, HEART HEALTHY FOLLOW - UP : SEE DR. ARTHUR/ LIAT MELCHOR APRN/ COLEEN BOWLES APRN IN THE OFFICE ON 2019 @ 1000 [facility], PET SCAN Monday @ 815, WRITTEN INSTRUCTIONS PROVIDED CODE STATUS: FULL CODE MR ORANTES REMAINS ALERT AND ORIENTED X 4. IS UP INDEPENDENTLY. IS INDEPENDENT WITH ADLS AND IADLS. MINIMAL LT SHOULDER AND LT RIB/UPPER SIDE PAIN IMPROVED 1/10. NUTRITIONAL AND FLUID INTAKE GOOD. URINARY HESITANCY HAS IMPROVED WITH INTRODUCTION OF FLOMAX. CONTINENT OF BOWEL AND BLADDER.LAST BM 02/05/2020. LIVES WITH . HE STILL DRIVES. HE HAS BEEN DOING HIS OWN STRUCTURE ADDITIONS TO HIS HOME. AGREES TO NOT EXERT HIMSELF FOR NOW. MD LIAT LANDA, RACING MANAGER COLEEN BOWLES, RACING MANAGER
[2020-02-07 11:07] VITALS: BP 156/62; TEMP 97.8
[2020-02-07] MEDS ORDERED: GLUCOPHAGE PO SCH (12:00)
[2020-02-08] MEDS ORDERED: COUMADIN PO SCH ×2 (08:04→17:00)
--- NOTE | 2020-02-10 10:35 | PN ---
DATE OF SERVICE: 02/07/20 SUBJECTIVE: The patient was seen and examined with the nurse practitioner. The patient's condition is stable. His pain was pleuritic type. The patient had worked on his deck all week that started the pain. No exertional chest discomfort, no symptoms of CHF. Cardiovascular status is stable. PHYSICAL EXAMINATION: HEENT: Head normocephalic, atraumatic. Eyes: Extraocular muscles are intact. Pupils are equal, round and reactive to light and accommodation. Ears: No lesions. Nose appeared normal. Throat: No exudate or erythema. NECK: Supple. No JVD, no carotid bruit. No lymphadenopathy or thyromegaly. LUNGS: Clear to auscultation. Percussion note normal. Chest symmetrical. HEART: S1, S2, no S3. No murmurs. No cyanosis or clubbing. No ascites. Pulses: Dorsalis pedis and posterior tibial pulses +1 to +2 bilaterally. ABDOMEN: Soft. Nontender. Bowel sounds active. No CVA tenderness. No mass felt. EXTREMITIES: No edema. Full range of motion of all extremities, equal. NEUROLOGIC: No focal deficit. Cranial nerves II through XII are grossly intact. No headache, no double vision or headache. SKIN: Not dry. Intact. Turgor - normal. LYMPHATIC: No palpable lymph nodes/no lymphedema. MUSCULOSKELETAL: Normal joints with no swelling. Muscle tone is normal. The patient will undergo PET scan for right apical bronchogram that was air bronchogram was noted. He had an echocardiogram done which showed mild to moderate aortic regurgitation and mild to moderate mitral regurgitation. Septum was akinetic with ejection fraction 45%. TIME SPENT: More than 30 minutes. Plan and coordination of the patient's care discussed in the presence of nurse. KENNY
--- NOTE | 2020-02-10 13:20 | ECHO2D ---
Date of Exam: 02/07/2020 Ordering Physician: DR. ЕЛЕНА ARTHUR Room #: OP Reason for Echo: CHEST PAIN, HX CABG M-Mode Normal Adult Results LV Dimensions Normal Adult Results AoV Opening excursions >1.6 >1.6 LVEDD-base- 3.5-5.8 5.6 Ao root dimensions 2.0-3.7 3.3 LVESD-base- 3.1-4.6 L. Atrium dimensions 1.9-3.8 5.1 Post. Wall thickness 0.8-1.1 1.2 IV septum (thickness) 0.7-1.2 1.2 Post. Wall excursion 0.72-1.3 NORMAL Septal motion 0.1 Systolic motion R. Ventricular cavity 1.5-2.0 NORMAL LVEF 60% 45% Paradoxical septal wall motion NORMAL 2-D : 2-D M Mode Echocardiogram was performed using apical four chamber and left parasternal long and short axis views. Mitral, tricuspid and aortic valves appear to be normal. Contractility of the left ventricle seems to be normal, so is the cavity size. ENLARGED LEFT ATRIAL CAVITY. Aortic root appears to be normal. There is no pericardial effusion. There is no thrombus noted in the left ventricle or left atrial cavity. No mitral valve prolapse noted. HYPOKINETIC TO AKINETIC SEPTAL WALL. COLOR FLOW: MODERATE MITRAL REGURGITATION / AORTIC REGURGITATION M-MODE: MV: NORMAL AV: NORMAL TV: NORMAL PV: CHAMBER SIZE: ENLARGED LEFT ATRIAL CAVITY WALL MOTION: AKINETIC SEPTAL WALL PERICARDIUM: NORMAL INTERPRETATION: 1. LEFT VENTRICULAR HYPERTROPHY WITH ENLARGED LEFT ATRIAL CAVITY 2. HYPOKINETIC TO AKINETIC SEPTAL WALL 3. LEFT VENTRICULAR CONTRACTILITY 5.6 CM (BORDERLINE) 4. MODERATE MITRAL REGURGITATION/ AORTIC REGURGITATION NOTED MTDD
--- NOTE | 2020-02-10 13:21 | PN ---
02/05/2020: Level 5 02/06/2020: Intermediate 02/07/2020: D as discharge MTDD
--- NOTE | 2020-02-10 13:21 | DS ---
DATE OF SERVICE: 02/07/2020 FINAL DIAGNOSIS: ATYPICAL CHEST PAIN, CARDIAC ENZYMES ARE NEGATIVE, LIKELY PLEURITIC PAIN ATRIAL FIBRILLATION COAGULOPATHY- RESOLVED CAD WITH CABG HX CHRONIC KIDNEY DISEASE, STAGE 3 RIGHT UPPER LOBE CONSOLIDATIONS ,4.3 X 1.9 CM AND 3.8 X 1.1 CM WITHOUT AIR BRONCHOGRAMS ( CT ANGIOGRAM CHEST 02/05/20 ) HISTORY: ACUTE BRONCHITIS/PNEUMONITIS ATRIAL FIBRILLATION (COUMADIN) DM, TYPE 2 CAD AND HISTORY OF DE, S/P CABG 4 VESSEL, 05/12/14 DYSLIPIDEMIA HYPERTENSION BPH ARTHRITIS FORMER SMOKER, NONE SINCE 1971 LAST 2-D AND M-MODE ECHO AT [facility] 06/12/17 LVH AND LEFT ATRIAL CAVITY ENLARGEMENT NORMAL VALVES MILD AORTIC REGURGITATION HYPOKINETIC SEPTUM LVEF 46% SURGICAL HX: BILATERAL INGUINAL HERNIA REPAIR TOTAL LEFT KNEE ARTHROPLASTY LAST VITALS: Temp Pulse Resp BP Pulse Ox 97.7 F 64 16 184/76 H 97 02/07/20 05:42 02/07/20 05:42 02/07/20 05:42 02/07/20 05:42 02/07/20 05:42 DISCHARGE INSTRUCTIONS: DISCHARGE HOME TODAY, 2019, INDEPENDENT WITH . FOLLOW - UP : SEE DR. ARTHUR/ LIAT MELCHOR APRN/ COLEEN BOWLES APRN IN THE OFFICE ON 2019 @ 1000. [facility], PET SCAN Monday @ 815, WRITTEN INSTRUCTIONS PROVIDED. CODE STATUS: FULL CODE. TAKE THESE MEDICATIONS AT HOME: Amiodarone HCl (Cordarone) 200 mg PO DAILY [facility] Last Admin: 02/07/20 08:27 Dose: 200 mg Glimepiride (Amaryl) 4 mg PO DAILYWM [facility] Last Admin: 02/07/20 08:27 Dose: 4 mg Losartan Potassium (Cozaar) 50 mg PO DAILY [facility] -- ( NEW) Last Admin: 02/07/20 08:27 Dose: 50 mg Metformin HCl (Glucophage) 500 mg PO DAILYWM [facility] (HAS BEEN ON HOLD FOLLOWING SCAN) Tamsulosin HCl (Flomax) 0.4 mg PO DAILY [facility] Last Admin: 02/07/20 08:27 Dose: 0.4 mg Warfarin Sodium (Coumadin) 2.5 mg PO [facility] Warfarin Sodium (Coumadin) 5 mg PO TU [facility] LIPITOR 20 MG PO AT BEDTIME ALLERGIES: No Known Allergies Allergy (Verified 02/05/20 08:36) DISCONTINUED MEDICATIONS: NONE NEW PRESCRIPTIONS: Losartan Potassium (Cozaar) 50 mg PO DAILY [facility] -- ( NEW) Tamsulosin HCl (Flomax) 0.4 mg PO DAILY [facility] SMOKING: NON- APPLICABLE DISEASE SPECIFIC EDUCATION: CHEST PAIN COUMADIN LUNG CONSOLIDATIONS COVID LAB REVIEW: 02/07/20 05:05 02/07/20 05:05 02/07/20 05:05: PT 23.4 H D, INR 2.52 D 02/07/20 05:05: Sodium 134.2 L, Potassium 4.07, Chloride 105.2, Carbon Dioxide 22.5, Anion Gap 10.57, BUN 30.5 H, Creatinine 1.05, Estimated GFR (MDRD) 68.00, BUN/Creatinine Ratio 29.04, Glucose 257.9 H D, Calcium 9.22, Total Bilirubin 0.34, AST 25.5, ALT 30.1, Alkaline Phosphatase 70.5, Total Protein 6.10 L, Albumin 3.52, Globulin 2.58, Albumin/Globulin Ratio 1.36 02/07/20 05:05: WBC 13.84 H D, RBC 4.43 L, Hgb 12.4 L, Hct 36.6 L, MCV 82.6, MCH 28.0, MCHC 33.9, RDW Coeff of Tiffany 16.3 H, Plt Count 239, Immature Gran % (Auto) 0.4, Neut % (Auto) 78.3 H, Lymph % (Auto) 15.9, Turner % (Auto) 5.3, Eos % (Auto) 0.0, Baso % (Auto) 0.1, Neut # (Auto) 10.8 H, Lymph # (Auto) 2.2, Turner # (Auto) 0.7, Eos # (Auto) 0.0, Baso # (Auto) 0.0, Immature Gran # (Auto) 0.1 ACTIVITY: UP TOLERATED WITH FREQUENT REST PERIODS NO STRENUOUS ACTIVITY RECOGNIZE AND FOLLOW SOCIAL DISTANCING GUIDELINES WHEN OUT IN THE PUBLIC DIET: 1800 ADA, HE[facility]ALTH[facility] HOSPITAL COURSE: The patient was hospitalized with chest pain. Pain was pleuritic type more so with movement or increased breathing. Cardiac markers were negative. He was given Decadron and Toradol. During the stay in the hospital the patient's condition improved and pain subsided. He was up and about with no symptoms of CHF were noted. Cardiac markers were negative. No arrhythmias were noted of any significance. The same as before with kinetic septal wall with LV ejection fraction 45% with normal intra-posterior wall. The patient has mild to moderate aortic regurgitation and mitral regurgitation. The patient declined to have any stress test done at present time. He was put on Losartan 50mg for his hypertension and Flomax for his prostatism type of symptoms. The patient was strongly advised to undergo stress test, he declined. CONDITION: Stable TIME SPENT: More than 60 minutes. MTDD
== END 2020-02-07 13:15 | disposition home or self-care (01) | DRG 313 ==
LOC: ED 08:30 → MEDSURG B 08:30
PROVIDERS: ADMIT Internal Medicine; ATTEND Internal Medicine
DX: T45.515A Adverse effect of anticoagulants, initial encounter; I35.1 Nonrheumatic aortic (valve) insufficiency; I25.810 Atherosclerosis of coronary artery bypass graft(s) without angina pectoris; R07.89 Other chest pain; N18.3 Chronic kidney disease, stage 3 (moderate); R91.8 Other nonspecific abnormal finding of lung field; I10 Essential (primary) hypertension; Z51.81 Encounter for therapeutic drug level monitoring; Z79.899 Other long term (current) drug therapy; I51.89 Other ill-defined heart diseases; Z79.01 Long term (current) use of anticoagulants; R79.1 Abnormal coagulation profile; I48.11 Longstanding persistent atrial fibrillation; R07.1 Chest pain on breathing; I34.0 Nonrheumatic mitral (valve) insufficiency; E78.5 Hyperlipidemia, unspecified; N40.0 Benign prostatic hyperplasia without lower urinary tract symptoms; I25.2 Old myocardial infarction

== ENCOUNTER 2021-12-13 12:01 | Inpatient (IN) ==
[2021-12-13 12:26] LABS: BORDETELLA PARAPERTUSSIS (PCR) NOT DETECTED (NOT DETECT); BORDETELLA PERTUSSIS (PCR) NOT DETECTED (NOT DETECT); CHLAMYDIA PNEUMONIAE (PCR) NOT DETECTED (NOT DETECT); CORONAVIRUS 229E (PCR) NOT DETECTED (NOT DETECT); CORONAVIRUS HKU1 (PCR) NOT DETECTED (NOT DETECT); CORONAVIRUS NL63 (PCR) NOT DETECTED (NOT DETECT); CORONAVIRUS OC43 (PCR) NOT DETECTED (NOT DETECT); HUMAN METAPNEUMOVIRUS (PCR) NOT DETECTED (NOT DETECT); HUMAN RHINOVIRUS/ENTEROV (PCR) NOT DETECTED (NOT DETECT); INFLUENZA B (PCR) NOT DETECTED (NOT DETECT); MYCOPLASMA PNEUMONIAE (PCR) NOT DETECTED (NOT DETECT); PARAINFLUENZA VIRUS 1 (PCR) NOT DETECTED (NOT DETECT); PARAINFLUENZA VIRUS 2 (PCR) NOT DETECTED (NOT DETECT); PARAINFLUENZA VIRUS 3 (PCR) NOT DETECTED (NOT DETECT); PARAINFLUENZA VIRUS 4 (PCR) NOT DETECTED (NOT DETECT); RESPIRATORY SYNCYTIAL V (PCR) NOT DETECTED (NOT DETECT); SARS_COV_2 (PCR) NOT DETECTED (NOT DETECT)
[2021-12-13 13:19] LABS: ADENOVIRUS (PCR) NOT DETECTED (NOT DETECT)
[2021-12-13] MEDS ORDERED: ATROPINE SULFATE PFS IVP PRN (14:01)
[2021-12-13] MEDS ORDERED: TYLENOL PO PRN (14:01)
[2021-12-13] MEDS ORDERED: NITROSTAT SL PRN (14:01)
[2021-12-13 14:13] VITALS: BMI 24.6
[2021-12-13] MEDS ORDERED: ALBUTEROL 0.083% NEB NEB ONE (14:15)
[2021-12-13] MEDS ORDERED: SODIUM CHLORIDE 1,000 ML IV SCH (14:30)
[2021-12-13] MEDS: ROCEPHIN 1 GM/50 ML D5W 1 GM/50 ML BAG IV SCH (14:50)
[2021-12-13] MEDS: SOLU-CORTEF 100 MG IVP SCH ×2 (14:54→21:11)
[2021-12-13 14:56] LABS: ABG O2 HGB 92.1 % (95-100); ABG PH 7.33 (7.35-7.45); BEecf -13.8 (-2.0-3.0); COHb 2.1 (0.5-1.5); HCO3 12.1 (21-28); MetHb 0.4 (0-1.5); TCO2 12.8 (19-24); sO2 92.4 % (94-98); tHb 11.3 g/dl (11.7-17.4)
[2021-12-13 14:57] LABS: HEMATOCRIT 35.3 % (42.0-52.0); HEMOGLOBIN 11.8 g/dl (14.0-18.0); IMMATURE GRANULOCYTE # (AUTO) 0.1 (0.0-1.0); IMMATURE GRANULOCYTE % (AUTO) 0.5 % (0.0-5.0); LYMPHOCYTES # (AUTO) 0.6 K/uL (0.60-3.4); LYMPHOCYTES % (AUTO) 5.6 (10.0-50.0); MEAN CORPUSCULAR HEMOGLOBIN 26.2 pg (27.0-31.0); MEAN CORPUSCULAR HGB CONC 33.4 (31.8-35.4); MEAN CORPUSCULAR VOLUME 78.3 fl (80.0-94.0); MONOCYTES # (AUTO) 0.5 K/uL (0.4-2.0); MONOCYTES % (AUTO) 5.5 (0-10); NEUTROPHILS # (AUTO) 8.7 K/ul (2.0-6.9); NEUTROPHILS % (AUTO) 88.4 % (42.2-75.2); PLATELET COUNT 158 10^3/uL (140-440); RDW COEFFICIENT OF VARIATION 20.6 % (11.6-14.8); RED BLOOD COUNT 4.51 10^6/ul (4.70-6.10)
[2021-12-13 14:59] LABS: BILIRUBIN,URINE Negative (NEGATIVE); CLARITY,URINE Clear (CLEAR); COLOR,URINE Yellow (YELLOW); GLUCOSE, URINE (UA) Negative (NEGATIVE); KETONES,URINE Negative (NEGATIVE); LEUKOCYTE ESTERASE ,URINE 1+ (NEGATIVE); NITRITE,URINE Negative (NEGATIVE); PH,URINE 5.5 (5-9); PROTEIN,URINE 1+ (NEGATIVE); URINE, BLOOD Negative (NEGATIVE); UROBILINOGEN,URINE 0.2 (0.2)
[2021-12-13 15:07] LABS: SQUAMOUS EPITHELIAL CELL,UR 0-2 (0-5)
[2021-12-13 15:08] LABS: BACTERIA,URINE 2+ (NOT PRESENT); MUCUS,URINE TRACE (NOT PRESENT)
[2021-12-13 15:09] LABS: ALANINE AMINOTRANSFERASE 555.4 U/L (0-50); ALBUMIN 3.35 g/dL (3.5-5.0); ALKALINE PHOSPHATASE 197.1 U/L (56-119); BILIRUBIN,TOTAL 0.97 mg/dL (0.2-1.3); CALCIUM 8.1 mg/dL (8.4-10.2); CARBON DIOXIDE 13.4 mmol/L (22-30.0); CHLORIDE 103.4 mmol/L (98-107); CREATINE KINASE 125.8 U/L (55-170); CREATININE 2.46 mg/dL (0.60-1.10); GLUCOSE 338.5 mg/dL (74-106); POTASSIUM 5.19 mmol/L (3.5-5.1); SODIUM 131.5 mmol/L (134.5-145); TOTAL PROTEIN 5.98 g/dL (6.3-8.2)
[2021-12-13 15:20] LABS: TROPONIN I 0.023 ng/ml (0.0000-0.120)
[2021-12-13 15:24] LABS: CREATINE KINASE MB 4.95 ng/ml (0.0-2.38)
[2021-12-13] MEDS ORDERED: LEVAQUIN 500 MG/100 ML D5W 500 MG/100 ML BAG IV ONE (16:00)
[2021-12-13] MEDS: SODIUM CHLORIDE 1,000 ML IV SCH (16:40)
--- NOTE | 2021-12-13 16:50 | CT ---
EXAM: CT chest without contrast HISTORY: Shortness of air COMPARISON: 02/05/2020 TECHNIQUE: CT chest performed without intravenous contrast. Coronal and sagittal reformatted images obtained. FINDINGS: Thoracic inlet unremarkable. Heart moderately enlarged. Coronary calcifications. No per icardial effusion. Post CABG changes. Aorta normal in caliber. Atherosclerosis. Evaluation for ly mphadenopathy limited without contrast. No lymphadenopathy identified in the chest. No acute abnorm alities of the bones. Degenerative change in the spine. Median sternotomy wires. Central airway pa tent. Small debris in the trachea. Moderate right and small left pleural effusions. Chronic rounde d/nodular areas of consolidation in the right upper lobe measuring 4.1 x 1.5 cm and 2.3 x 1.1 cm, wit h associated calcifications, with the larger similar to prior examination and the smaller mildly decr eased. Multifocal bilateral ground-glass infiltrates in the right basilar consolidation. No pneumot horax. IMPRESSION: 1. Multifocal bilateral ground-glass infiltrates and right basilar consolidation, may represent pneu monia and/or edema. 2. Moderate right and small left pleural effusions. 3. Chronic rounded/nodular areas of consolidation in the right upper lobe, one of which is decreased and the other unchanged. These are indeterminate etiology. The stability favors a benign etiology and these could relate to chronic rounded atelectasis. Recommend CT follow-up .. 4. Small debris in the trachea. 5. Cardiomegaly All CT scans are performed using dose optimization techniques as appropriate to the performed exam an d include at least one of the following: Automated exposure control, adjustment of the mA and/or kV according t o size, and the use of iterative reconstruction technique.
[2021-12-13] MEDS ORDERED: GLUCOPHAGE PO SCH (17:00)
--- NOTE | 2021-12-13 17:06 | CT ---
EXAM: CT Abdomen without contrast. CT Pelvis without contrast. HISTORY: Generalized abdominal pain. COMPARISON: Pelvic CT 10/19/2020. TECHNIQUE: Multiple axial images of the abdomen and pelvis were obtained without intravenous contras t. Images were reformatted in the sagittal and coronal plane. FINDINGS: Please note that evaluation of the abdominal and pelvic structures is limited due to lack of intravenous contrast. Sternotomy wires noted. Heart enlarged. Coronary artery aortic calcifications. Right greater than left pleural effusion with right basilar consolidation and left basilar ground-glass opacities. Refe r to same day chest CT report for details. Degenerative changes throughout the spine. Heights and tear along the gallbladder. Liver, pancreas, spleen, adrenal glands, and kidneys demonst rate no acute abnormality. Descending duodenal diverticulum. No bowel obstruction or acute inflammation. Appendix normal. Solomon dder wall thickening with some superior and lateral bladder diverticuli. Question previous transuret hral resection of the prostate. There is mild presacral edema. Mild mesenteric edema. Small amount free fluid. There is no free air. Atherosclerotic calcifications in the aorta without abdominal ao rtic aneurysm. Suspect previous inguinal hernia repair bilaterally with mesh present. IMPRESSION: 1. Small-volume ascites and generalized edema. 2. High-density gallbladder contents could be sludge or vicarious excretion of contrast if there has been recent contrast administration. 3. Findings suggest chronic cystitis. 4. Bilateral pleural effusions and bibasilar pulmonary opacities. Refer to same day chest CT report for details. All CT scans are performed using dose optimization techniques as appropriate to the performed exam an d include at least one of the following: Automated exposure control, adjustment of the mA and/or kV according t o size, and the use of iterative reconstruction technique.
[2021-12-13] MEDS: ZOSYN 3.375 GM 3.375 GM in SODIUM CHLORIDE 50 ML IV SCH ×2 (17:37→23:57)
[2021-12-13] MEDS ORDERED: MEPHYTON PO STA (17:43)
[2021-12-13] MEDS: HUMULIN R SUBCUT PRN ×2 (17:44→20:13)
[2021-12-13] MEDS ORDERED: PULMICORT 1 MG/2 ML NEB SCH (18:00)
[2021-12-13] MEDS: PULMICORT 1 MG/2 ML NEB SCH (19:55)
[2021-12-13] MEDS: ALBUTEROL 0.083% NEB NEB SCH (19:55)
[2021-12-13 22:33] LABS: CREATINE KINASE 105.1 U/L (55-170)
[2021-12-13 22:46] LABS: TROPONIN I 0.022 ng/ml (0.0000-0.120)
[2021-12-14] MEDS: SODIUM CHLORIDE 1,000 ML IV SCH ×2 (05:00→20:23)
[2021-12-14] MEDS: PULMICORT 1 MG/2 ML NEB SCH ×2 (05:00→19:53)
[2021-12-14] MEDS: ALBUTEROL 0.083% NEB NEB SCH ×3 (05:00→19:53)
[2021-12-14 05:06] LABS: HEMATOCRIT 33.5 % (42.0-52.0); HEMOGLOBIN 11.1 g/dl (14.0-18.0); IMMATURE GRANULOCYTE % (AUTO) 0.4 % (0.0-5.0); LYMPHOCYTES # (AUTO) 0.6 K/uL (0.60-3.4); LYMPHOCYTES % (AUTO) 8.2 (10.0-50.0); MEAN CORPUSCULAR HEMOGLOBIN 26.2 pg (27.0-31.0); MEAN CORPUSCULAR HGB CONC 33.1 (31.8-35.4); MEAN CORPUSCULAR VOLUME 79.2 fl (80.0-94.0); MONOCYTES # (AUTO) 0.4 K/uL (0.4-2.0); MONOCYTES % (AUTO) 5.3 (0-10); NEUTROPHILS % (AUTO) 86.1 % (42.2-75.2); PLATELET COUNT 137 10^3/uL (140-440); RDW COEFFICIENT OF VARIATION 20.6 % (11.6-14.8); RED BLOOD COUNT 4.23 10^6/ul (4.70-6.10); WHITE BLOOD COUNT 6.97 K/ul (4.2-10.2)
[2021-12-14] MEDS: SOLU-CORTEF 100 MG IVP SCH ×3 (05:07→20:27)
[2021-12-14] MEDS: ZOSYN 3.375 GM 3.375 GM in SODIUM CHLORIDE 50 ML IV SCH ×3 (05:09→17:27)
[2021-12-14 05:21] LABS: ALANINE AMINOTRANSFERASE 487.5 U/L (0-50); ALBUMIN 3.09 g/dL (3.5-5.0); ALKALINE PHOSPHATASE 161.7 U/L (56-119); ASPARTATE AMINO TRANSFERASE 254.7 U/L (17-59); BILIRUBIN,TOTAL 0.94 mg/dL (0.2-1.3); CALCIUM 8.09 mg/dL (8.4-10.2); CARBON DIOXIDE 15.5 mmol/L (22-30.0); CHLORIDE 106.4 mmol/L (98-107); CREATININE 2.16 mg/dL (0.60-1.10); POTASSIUM 4.89 mmol/L (3.5-5.1); SODIUM 135.2 mmol/L (134.5-145); TOTAL PROTEIN 5.72 g/dL (6.3-8.2)
[2021-12-14 05:42] LABS: BLOOD UREA NITROGEN 65.4 mg/dL (9-20)
[2021-12-14] MEDS: HUMULIN R SUBCUT PRN ×4 (05:51→20:22)
[2021-12-14 08:45] LABS: ABG O2 HGB 94.1 % (95-100); ABG PH 7.37 (7.35-7.45); BEecf -12.6 (-2.0-3.0); COHb 1.9 (0.5-1.5); HCO3 12.7 (21-28); MetHb 0.3 (0-1.5); TCO2 13.4 (19-24); tHb 10.8 g/dl (11.7-17.4)
[2021-12-14] MEDS: CORDARONE PO SCH (09:00)
[2021-12-14] MEDS: FLOMAX PO SCH (09:00)
[2021-12-14] MEDS ORDERED: LEVAQUIN 250 MG/50 ML D5W 250 MG/50 ML BAG IV SCH (09:00)
[2021-12-14] MEDS: ROCEPHIN 1 GM/50 ML D5W 1 GM/50 ML BAG IV SCH (09:00)
[2021-12-14] MEDS: PROTONIX PO SCH ×2 (09:00→17:27)
--- NOTE | 2021-12-14 09:05 | PCM.PROG ---
Attending Provider: ATTENDING PROVIDER: Dr. ЕЛЕНА ARTHUR This patient is seen with Rosa Maria Christianson, Nurse Practitioner. DATE OF SERVICE: 12/14/21 SUBJECTIVE: This 86 year old /WHITE M was hospitalized 12/13/21. Feeling better this morning. Sitting up in the bed, talkative. Ate little bit of supper last night. INR still unreadable in spite of 2.5mg Vitamin K. No signs of bleeding. Hgb and plt is stable. Liver function has improved. Renal function slight improved. CAT scan showed bilateral pneumonia. REVIEW OF SYSTEMS: CONSTITUTIONAL: No night sweats. No fatigue, malaise, lethargy. No fever or chills. Weakness. HEENT: Eyes: No visual changes. No eye pain. No eye discharge. ENT: No runny nose. No epistaxis. No sinus pain. No odynophagia. No congestion. RESPIRATORY: Cough, no congestion. No hemoptysis. Shortness of breath. CARDIOVASCULAR: No angina symptoms. No CHF symptoms. No atypical chest pain for CAD. No palpitations. No orthopnea.. GASTROINTESTINAL: No abdominal pain. No nausea or vomiting. No diarrhea or constipation. No hematemesis. No hematochezia. GENITOURINARY: No urgency. No frequency. No dysuria. No hematuria. No obstructive symptoms. No discharge. No pain. No significant abnormal bleeding. MUSCULOSKELETAL: No musculoskeletal pain; no joint swelling. NEUROLOGICAL: Awake, alert, oriented to time, place and person. No headache. No neck pain. No syncope. No seizures. No dizziness. PSYCHIATRIC: Not anxious. No depression. No suicidal thoughts. No homicidal thoughts. SKIN: No rash. No lesions. No wounds. ENDOCRINE: No unexplained weight loss. No weight gain. HEMATOLOGIC/LYMPHATIC: No anemia. No purpura. No petechiae. No prolonged or ex cessive bleeding. No palpable lymph nodes. PHYSICAL EXAMINATION: GENERAL: The patient is awake, alert and oriented, sitting in bed in no distress. VITAL SIGNS: Temperature 97.3 F, Pulse 97, Respiratory Rate 18, BP 129/77, Pulse Ox 96% HEENT: Head normocephalic, atraumatic. Eyes: Extraocular muscles are intact. Pupils are equal, round and reactive to light and accommodation. Ears: No lesions. Nose appeared normal. Throat: No exudate or erythema. NECK: Supple. No JVD, no carotid bruit. No lymphadenopathy or thyromegaly. LUNGS: Diminished breath sounds. Clear to auscultation. Percussion note normal. Chest symmetrical. HEART: S1, S2, no S3. Irregular heart rate. No murmurs. No cyanosis or clubbing. No ascites. Pulses: Dorsalis pedis and posterior tibial pulses +1 to +2 both sides. ABDOMEN: Soft. Non-tender. Bowel sounds active. No CVA tenderness. No mass felt. EXTREMITIES: No edema. Full range of motion of all extremities, equal. NEUROLOGIC: No focal deficit. Cranial nerves II through XII are grossly intact. No headache. No double vision. SKIN: Not dry. Intact. Turgor-normal. LYMPHATIC: No palpable lymph nodes/no lymphedema. MUSCULOSKELETAL: Normal joints with no swelling. Muscle tone is normal. LAB REVIEW: 12/14/21 04:49 12/14/21 04:49 12/14/21 04:49: Sodium 135.2, Potassium 4.89, Chloride 106.4, Carbon Dioxide 15.5 L, Anion Gap 18.19, BUN 65.4 H*, Creatinine 2.16 H, Estimated GFR (MDRD) 29.00, BUN/Creatinine Ratio 30.27, Glucose 162.0 H D, Calcium 8.09 L, Total Bilirubin 0.94, AST 254.7 H D, ALT 487.5 H D, Alkaline Phosphatase 161.7 H D, Total Protein 5.72 L, Albumin 3.09 L, Globulin 2.63, Albumin/Globulin Ratio 1.17 12/14/21 04:49: WBC 6.97, RBC 4.23 L, Hgb 11.1 L, Hct 33.5 L, MCV 79.2 L, MCH 26.2 L, MCHC 33.1, RDW Coeff of Tiffany 20.6 H, Plt Count 137 L, Immature Gran % (Auto) 0.4, Neut % (Auto) 86.1 H, Lymph % (Auto) 8.2 L, [place] % (Auto) 5.3, Eos % (Auto) 0.0, Baso % (Auto) 0.0, Neut # (Auto) 6.0, Lymph # (Auto) 0.6, [place] # (Auto) 0.4, Eos # (Auto) 0.0, Baso # (Auto) 0.0, Immature Gran # (Auto) 0.0 12/14/21 04:49: PT , INR 12/13/21 22:15: Total Creatine Kinase 105.1, Troponin I 0.022 12/13/21 14:50: Puncture Site Rbrch, Base Excess -13.8 L, O2 Saturation 92.4 L, ABG pH 7.33 L, ABG pCO2 23.0 L, ABG pO2 70.0 L, ABG HCO3 12.1 L, ABG Total CO2 12.8 L, George Test +, Hemoglobin 0.4, Oxyhemoglobin 92.1 L, Carboxyhemoglobin 2.1 H, Total Hemoglobin 11.3 L, O2 Delivery Device Ra, FiO2 % 21.0 12/13/21 14:40: Acetaminophen < 10.0 L 12/13/21 14:40: Urine Color Yellow, Urine Clarity Clear, Urine pH 5.5, Ur Specific [place] 1.025, Urine Protein 1+ H, Urine Glucose (UA) Negative, Urine Ketones Negative, Urine Blood Negative, Urine Nitrite Negative, Urine Bilirubin Negative, Urine Urobilinogen 0.2, Ur Leukocyte Esterase 1+ H, Urine Microscopic WBC 5-10, Ur Squamous Epith Cells 0-2, Urine Bacteria 2+, Hyaline Casts 10-20, Urine Mucus Trace 12/13/21 14:40: Total Creatine Kinase 125.8, CK-MB (CK-2) 4.950 H, CK-MB (CK-2) % 3.9300, Troponin I 0.023 12/13/21 14:40: PT , INR 12/13/21 14:40: Sodium 131.5 L, Potassium 5.19 H, Chloride 103.4, Carbon Dioxide 13.4 L, Anion Gap 19.89, BUN 66.0 H*, Creatinine 2.46 H, Estimated GFR (MDRD) 25.00, BUN/Creatinine Ratio 26.82, Glucose 338.5 H, Calcium 8.10 L, Total Bilirubin 0.97, AST 300.0 H, ALT 555.4 H, Alkaline Phosphatase 197.1 H, Total Protein 5.98 L, Albumin 3.35 L, Globulin 2.63, Albumin/Globulin Ratio 1.27 12/13/21 14:40: WBC 9.80, RBC 4.51 L, Hgb 11.8 L, Hct 35.3 L, MCV 78.3 L, MCH 26.2 L, MCHC 33.4, RDW Coeff of Tiffany 20.6 H, Plt Count 158, Immature Gran % (Auto) 0.5, Neut % (Auto) 88.4 H, Lymph % (Auto) 5.6 L, [place]land % (Auto) 5.5, Eos % (Auto) 0.0, Baso % (Auto) 0.0, Neut # (Auto) 8.7 H, Lymph # (Auto) 0.6, [place] # ( Auto) 0.5, Eos # (Auto) 0.0, Baso # (Auto) 0.0, Immature Gran # (Auto) 0.1 12/13/21 12:16: Adenovirus (PCR) Not detected, B. pertussis DNA (PCR) Not detected, B.parapertussis DNA PCR Not detected, C. pneumoniae DNA (PCR) Not detected, Coronavirus OC43 (PCR) Not detected, Coronavirus HKU1 (PCR) Not detected, Coronavirus 229E (PCR) Not detected, Coronavirus NL63 (PCR) Not de tected, Human Metapneumovir PCR Not detected, Influenza Type A (PCR) Not detected, Influenza B (RT-PCR) Not detected, M. pneumoniae (PCR) Not detected, Parainfluenza 1 (PCR) Not detected, Parainfluenza 2 (PCR) Not detected, Parainfluenza 3 (PCR) Not detected, Parainfluenza 4 (PCR) Not detected, RSV (PCR) Not detected, Entero/Rhino (PCR) Not detected, SARS-CoV-2 (PCR) Not detected ASSESSMENT: Please see below. 1. Acute respiratory failure 2. Metabolic acidosis 3. Bilateral pneumonia 4. Elevated liver function 5. Hypercoagulation 6. Acute renal failure. PLAN: 1. Echo 2. ABG on room air 3. Continue IV antibiotics 4. Continue IV fluids 5. Continue to hold Coumadin 6. Protonix 40mg PO BID Plan and coordination of the patient's care discussed in the presence of Credit Negotiator and nurse. SCRIBED BY: Maranda ADAMS scribed while in presence of service performed by Dr. Arthur/Rosa Maria Christianson APRN on 12/14/21 (0800)
[2021-12-14] MEDS: NORCO 5-325 PO PRN (09:07)
[2021-12-14] MEDS ORDERED: VITAMIN K IV ONE (09:15)
[2021-12-14] MEDS ORDERED: SODIUM CHLORIDE IV ONE (09:15)
[2021-12-14] MEDS ORDERED: VITAMIN K SUBCUT ONE (09:29)
--- NOTE | 2021-12-14 09:38 | HP ---
DATE OF SERVICE: 12/13/21 REASON FOR HOSPITALIZATION/HISTORY OF PRESENT ILLNESS: Coughing/weak/not eating very much. Tested negative for COVID Monday. Took Z pack and Prednisone last week and getting worse. Shortness of breath with exertion. Pain with cough. Denies chest pain. No appetite. PAST MEDICAL HISTORY: Diabetes Mellitus type II Cardiac Hypertension Ataxia DJD spine Lumbar radiculopathy Cataract PAST SURGICAL HISTORY: Prostate surgery, Dr. Zamudio CABG 05/11 Heart cath 05/11 Left knee replacement REVIEW OF SYSTEMS: CONSTITUTIONAL: Fever low, Fatigue. HEENT: Sinus drainage, no sore throat. RESPIRATORY: Cough, no congestion. CARDIOVASCULAR: No atypical chest pain for coronary artery disease. No angina, CHF symptoms, palpitations. Shortness of breath. GASTROINTESTINAL: No melena or abdominal pain. No GERD. GENITOURINARY: No hematuria, no prostatism, no polyuria. PSYCHOMETRIC EXAMINER: No blackout, Dizziness, no headache, no double vision. GAIT: Wheelchair. MUSCULOSKELETAL: Osteoarthritis pain, no joint swelling. ENDOCRINE: No weight loss, no weight gain. SKIN: Not dry, no rash. PSYCHIATRIC: Not anxious, no depression, no suicidal thoughts, no homicidal thoughts. SOCIAL HISTORY: Marital Status: . Alcohol Usage: No. Tobacco Usage: No. FAMILY HISTORY: Father Mother Brother 7 Sister 3 MEDICATIONS: Metformin 500mg BID Glipizide ER 5mg one daily Amiodarone 200mg PO daily Lipitor 20mg Po daily Coumadin Monday and 5mg Flonase two sprays daily Zestril 5mg one daily Flomax 0.4mg daily Ativan 0.5mg HS Ultram 50mg BID [place] XL BID Lyrica 75mg BID Acetaminophen/Codeine 300/30mg QID daily ALLERGIES: No known allergies. PHYSICAL EXAMINATION: V/S: Pulse 110, blood pressure 120/64, temperature 97.3, oxygen saturation 96%. GENERAL APPEARANCE: Oriented times three. Pale. HEENT: Normal. NECK: No JVP, no bruits. RESPIRATORY: Bilateral rales. Decreased breath sounds. CARDIOVASCULAR: S1, S2, no S3, no murmur. No cyanosis, clubbing. No ascites. Irregular heart rate. GI/ABDOMEN: No tenderness. Bowel sounds are active. EXTREMITIES: edema, pulses +1, equal. PSYCHOMETRIC EXAMINER: Deep tendon reflexes, sensory, motor and gait all normal. RECTAL: Colonoscopy refused./PROSTATE: 11/15 (0.3) . ASSESSMENT: 1. Acute pneumonitis 2. Dehydration 3. Generalized weakness 4. Cataract right eye surgery-Dr. Carter 5. DJD L spine- Pain Management 6. Lumbar radiculopathy 7. Right TKR 11/16- Dr. Torres 8. Left TKR 2010- Dr. Torres 9. Persistent atrial fibrillation 10.Systolic CHF 11. Diabetes Mellitus- A1c 9.2 12. CABG 2015 13. LV Dysfunction Ejection fraction 35-40% 14. Chronic kidney disease stage III 15. Ataxia 16. Noncompliant with Medications, diet, lifestyle and followup. PLAN: 1. The patient to be tested in drive marti 2. Routine telemetry orders 3. CBC, CMP, INR daily and now 4. ABG on room air 5. CT chest with and without 6. Normal saline IV at 75cc an hour 7. Rocephin 1 gram IV daily 8. Levaquin 500mg IV daily 9. Solu-Cortef 100mg IV Q 8 hours 10.Pulmicort NEB 1 mg BID 11.Albuterol NEB 0.083% TID 12.O2 at 1-2 liters nasal cannula 13.Regular diet 14.U/A 15.Sputum culture 16.Blood cultures time two 17.Sliding scale insulin coverage TIME SPENT: More than 70 minutes. MTDD
--- NOTE | 2021-12-14 10:47 | RS.PTINEVL ---
Subjective - Patient information Date of Evaluation: 12/14/21 Date of Arrival on Unit: 12/13/21 Admitted From:: Home Diagnosis: acute resp failure, B pneumonia, metabolic acidosis, fall at home. Usual Living Arrangement: With Spouse Living Arrangement Comments: lives in home with . pt uses power w/c in the home and uses straight cane when out of the home. Home Environment: House Medical History: Hypertension, Diabetes, CHF, Arthritis Medical History Comments:: DJD, RI, hernia, afib, CKD, LBP Surgical History: Knee Replacement (left), CABG Surgical History Comments:: prostate surgery Medications: see chart Subjective Information/ Patient Comments:: pt states that he has not been walking very far due to low back pain and shortness of air. pt states he feels "wobbly" so he doesn't try to walk at home. pt reports that he has had low back pain for several years. - Level of function Prior to this admission, the patient could do the following:: Partially Dependent Ambulation Abilities prior to this admission: walked short distances w rwx, uses power chair in home Current Level of Function: Partially Dependent Current Equipment Used at Home: Cane, Electric scooter, electric wheelchair, shower stool, walker, potty chair, rollator rwx, and rolling walker Pain Assessement - Location lumbar Description: Radiating, Sharp, Aching Intensity: 7 Pain Behavior: Facial Grimacing Pain Aggravating Factors: Changing Position Pain Alleviating Factors: Medication Interventions - Objective Patient Orientation: Person, Place, Time Current Interventions: IV's, Telemetry Observation: pt with increased thoracic kyphosis, rounded shlds, forward head. Range of Motion - ROM Right Upper Extremity AROM: WFL's Left Upper Extremity AROM: WFL's Right Lower Extremity AROM: WFL's Left Lower Extremity AROM: WFL's Muscle Strength - Muscle Strength Right Upper Extremity Strength: Mild Weakness (grossly 4-/5) Left Upper Extremity Strength: Mild Weakness (grossly 4-/5) Right Lower Extremity Strength: Mild Weakness (hip flex 4-/5, knee flex/ext 4/5, ankle DF/PF 4-/5) Left Lower Extremity Strength: Mild Weakness (hip flex 4-/5, knee flex/ext 4/5, ankle DF/PF 4-/5) Sensation - Sensation Right Upper Extremity Sensation: Intact/Normal Left Upper Extremity Sensation: Intact/Normal Right Lower Extremity Sensation: Impaired Left Lower Extremity Sensation: Impaired Comments: pt with n/t in B feet and radicular pain into BLE. Palpation Palpation Findings: Tenderness (tenderness to palpation in lumbar spine) Balance - Sitting Balance and Reactions Static Sitting Balance: Good Dynamic Sitting Balance: Fair - Standing Balance and Reactions Static Standing Balance: Poor Dynamic Standing Balance: Poor Standing Equilibrium Reactions: Delayed Left, Delayed Right Standing Protective Reactions: Delayed Left, Delayed Right Functional Mobility - Bed Mobility Rolling R/L: CGA Supine to Sit: CGA Sit to Supine: CGA - Transfers Sit to Stand: [facility] Stand to Sit: CGA - Safety Awareness Safety Awareness: Fair KELLEE INDEX SCORE: n/a Ambulation - Ambulation Assistive Device Used: Rolling Walker Orthotic/Prosthetic Device: No Distance: 100ft Assistance needed with Ambulation: CGA, 1 person assist (CGA x 1 + 1 for IV) Quality of Ambulation: pt required verbal cues to keep walker close to him. Gait Deviations: Forward posture, Short stride, Deviates from path Ambulation Comments: discussion with patient regarding the benefits of use of rwx instead of rollator or cane for safety. Factors Affecting Ambulation: Decreased Balance, Breathing/O2 Saturation, Pain, Weakness, Decreased Safety, Limited Endurance Treatment time - Time with patient Length of Evaluation: 19 Total treatment time: 22 Patient Education - Education Patient Education: Activity Modification, Education of Plan of Care Teaching Recipient: Patient Teaching Methods: Discussion, Demonstration Assessment - Assessment Problem List:: Decreased level of function, Requires training/education, Decre ased safety/Risk of falls, Weakness, Pain limits previous level of function Rehab Potential: Good Further Therapy Indicated?: Yes Candidate for Swing Bed for Therapy Services?: Feel pt may not be a swing bed candidate due to close to max ability. Evaluation Complexity: HISTORY: Medium, EXAM OF BODY SYSTEMS: Medium, CLINICAL PRESENTATION: Medium, CLINICAL DECISION MAKING: Medium Patient's Goal(s): pt get stronger and be able to go home. Short Term Goals GOAL #1: pt independent with initial HEP. Goal to be met by: 12/16/21 GOAL #2: pt transfer sup to/from sit SBA Goal to be met by: 12/16/21 GOAL #3: pt transfer sit to/from stand SBA Goal to be met by: 12/16/21 GOAL #4: pt amb with rwx 120ft with CGA with no LOB . Goal to be met by: 12/16/21 GOAL #5: Improve BLE strength to 4 to 4+/5 Goal to be met by: 12/16/21 Extract Puller Goals GOAL #1: pt transfer sup to/from sit to/from stand independently. Goal to be met by: 12/18/21 GOAL #2: pt amb with rwx functional household distances SBA Goal to be met by: 12/18/21 GOAL #3: Improve dyn stand balance fair - Goal to be met by: 12/18/21 Plan Plan of Care: Therapeutic EX, Therapeutic Activity Other:: gait training Frequency of Treatment: 1-2 X day, as tolerated Duration of Treatment: 5 days Anticipated Discharge Destination: Home Treatment Diagnosis (ICD 10 Codes): impaired balance R26.81. gait difficulty R 26.2. weakness M62.81. falls R29.6 Has the Physician been added for Co-signature?: Yes
--- NOTE | 2021-12-14 13:35 | PN ---
DATE OF SERVICE: 12/13/21 SUBJECTIVE: The patient was hospitalized through the office. He has respiratory failure, pneumonia also has anemia and abnormal liver profile. The patient is going to be on antibiotics. His INR is high. He will be given Vitamin K. No evidence of active GI bleed. DNR. TIME SPENT: More than 30 minutes. Plan and coordination of the patient's care discussed in the presence of nurse. KENNY
--- NOTE | 2021-12-14 13:37 | PN ---
DATE OF SERVICE: 12/14/21 SUBJECTIVE: The patient was seen and examined with the Nurse Practitioner. The patient's condition seems to be improving. He is feeling better. Appetite has improved. The INR is high. We will 2mg of Vitamin K SUBCUT. His metabolic acidosis seems to be resolving with pH being better. The son is in the room. Exam is unremarkable except for decreased breath sounds bilaterally. Looks somewhat pale. His appetite has improved and he feels a lot better than yesterday. Hydration status has improved. Kidney function is more or less the same. No evidence of fluid overload. TIME SPENT: More than 30 minutes. Plan and coordination of the patient's care discussed in the presence of nurse. KENNY
[2021-12-14 15:14] LABS: PROTHROMBIN TIME > 150.0 SEC (9.3-11.0)
--- NOTE | 2021-12-14 16:26 | RS.BEDDYS ---
Subjective Date of Evaluation: 12/14/21 Diagnosis: Pneumonia Current Diet: Regular diet; thin liquids; meds whole with water. Current Subjective/complaints:: The patient was resting in bed upon CREDIT COLLECTIONS MANAGER entry. He was agreeable to participate with CBSE. The patient reported recent coughing incident when talking pills in the home environment. Family member at the bedside and stated, "he coughed, but I didn't see him choke." When asked about GERD, recent pneumonia, or recent vomiting pt denied. When asked about swallowing difficulty, pt reported, "occasionally cough with water." Medical History Comments:: DM 2, CABG, Heart cath, HTN, Ataxia Patient's Goals: Improve appetite; return to home environment. General Information - General Denture Type: Full- Upper Patient Orientation: Person, Place, Time, Situation Ability to Follow Directions: Excellent Oral Expression Ability: No Impairment - Voice Voice Quality: Normal Voice Pitch: Normal Voice Loudness: Normal Oral-Facial Assessment - Face Facial Symmetry: Symmetrical Facial Movement: Controlled - Dental/Labial Teeth Characteristics: Missing (Bottom molars) Teeth Comment: recent molar removed on left side. Lip Protrusion: Normal Lip Retraction: Normal Puff Cheeks: Normal - Lingual Protrusion: Normal Retraction: Normal Tip Lateralization: Normal Repeated Tip Lateralization: Normal Tip Elevation: Normal Repeated Tip Elevation: Normal - Palate and Pharynx Soft Palate Description: Normal Color Hard Palate Description: Normal Color Food Presentation - Solids Food Presented: Regular (Bread sandwhich) Behaviors/Comments: Pt self-fed. He was sitting upright on EOB. The patient has decreased appetite but consumed approximately 50% of trials. Mastication mildly decreased secondary to general lethargy and appetite. Minimal oral residue. Pt utilized liquid wash to clear lingual residue. No overt s/s of aspiration with regular diet trials. Food Presented: Pureed (applesauce) Behaviors/Comments: Functional oral and pharyngeal phase of swallowing with puree trials. Mildly decreased LE observed with all PO intake. Pt had no overt s/s of aspiration. - Liquids Liquid Presented: Thin (Via straw and open cup) Behaviors/Comments: CREDIT COLLECTIONS MANAGER completed 3 oz water test. Pt had audible swallow response and one time throat clear post trials, no vocal quality change, watery eyes, or overt coughing. Pt utilized multiple swallows with sips of thin liquids via straw. No overt s/s of aspiration observed. LE was mildly decreased for airway protection. - Recommendations: Dysphagia Evaluation Dietary Recommendations: Regular Comments:: Regular diet texture with thin liquids. Medications one at a time with sips of thin H20 via straw. Dysphagia Swallow Precautions/Strategies: Sitting Upright (90 deg), Double Swallow, Liquids from Straw, Small Bites and Sips, Alternate Liquids/Solids Comments:: The patient has an inconsistent productive cough. The patient has strong vocal quality. The patient has potential for mechanism fatigue with extended meal duration. CREDIT COLLECTIONS MANAGER recommends pt have shorter meal duration, take meds one at a time, and complete oral care routine prior to laying flat in the bed. - Summary Dysphagia Evaluation Summary: The patient presented with mild oral and pharyngeal phase deficits as characterized by mastication process and laryngeal elevation. The patient demonstrated prolonged mastication with decreased bolus formation and residuals on lingual surface. The pharyngeal phase was observed with timely swallow initiation and mildly decreased LE with multiple swallow responses. At this time, CREDIT COLLECTIONS MANAGER recommends pt continue regular diet texture with thin liquids via straw. Medications to be administered one at a time with sips of thin liquids via straw. Recommendations with safe swallow/aspiration precautions and use of compensatory swallow strategies including alternating liquids/solids, and consuming small bites/sips of liquids. The patient has risks for penetration/aspiration due to coughing induced from pneumonia and decreased LE. Further Therapy Indicated?: Yes Rehab Potential: Good Functional Reporting G Codes: n/a Severity Impairment Rationale: n/a Short Term Goals Goal #1: Pt tolerate regular diet and thin liquids w/ min to no overt s/s of asp. Goal to be met by: 12/17/21 Goal #2: Pt/family/staff use safe swallow/aspiration precautions 100% of PO intake Goal to be met by: 12/17/21 Goal #3: Oral care routine to reduce risks of aspiration on oral bacteria Goal to be met by: 12/17/21 Goal #4: Trial LE exercises to improve airway protection Goal to be met by: 12/17/21 Senior Living Goals Goal #1: Pt maintain adequate hydration/nutrition on safer and least rest. diet Goal to be met by: 12/17/21 Plan Duration of Treatment: 1 Week Frequency of Treatment: 1x/day Anticipated Discharge Destination: Home - Treatment Code (1) Dysphagia Code(s): R13.10 - Dysphagia, unspecified
[2021-12-15] MEDS: ZOSYN 3.375 GM 3.375 GM in SODIUM CHLORIDE 50 ML IV SCH ×5 (00:10→23:11)
[2021-12-15 04:50] LABS: BASOPHILS % (AUTO) 0.1 % (0.0-3.0); HEMATOCRIT 33.8 % (42.0-52.0); IMMATURE GRANULOCYTE % (AUTO) 0.3 % (0.0-5.0); LYMPHOCYTES # (AUTO) 0.4 K/uL (0.60-3.4); LYMPHOCYTES % (AUTO) 4.9 (10.0-50.0); MEAN CORPUSCULAR HEMOGLOBIN 26.2 pg (27.0-31.0); MEAN CORPUSCULAR HGB CONC 32.5 (31.8-35.4); MEAN CORPUSCULAR VOLUME 80.5 fl (80.0-94.0); MONOCYTES # (AUTO) 0.6 K/uL (0.4-2.0); MONOCYTES % (AUTO) 7.7 (0-10); NEUTROPHILS # (AUTO) 6.9 K/ul (2.0-6.9); PLATELET COUNT 115 10^3/uL (140-440); RDW COEFFICIENT OF VARIATION 20.8 % (11.6-14.8); WHITE BLOOD COUNT 7.97 K/ul (4.2-10.2)
[2021-12-15 05:03] LABS: ALANINE AMINOTRANSFERASE 458.7 U/L (0-50); ALBUMIN 3.17 g/dL (3.5-5.0); ALKALINE PHOSPHATASE 197.4 U/L (56-119); BILIRUBIN,TOTAL 0.81 mg/dL (0.2-1.3); BLOOD UREA NITROGEN 55.8 mg/dL (9-20); CALCIUM 8.32 mg/dL (8.4-10.2); CARBON DIOXIDE 14.7 mmol/L (22-30.0); CHLORIDE 107.2 mmol/L (98-107); CREATININE 1.89 mg/dL (0.60-1.10); GLUCOSE 157.1 mg/dL (74-106); POTASSIUM 3.92 mmol/L (3.5-5.1); SODIUM 135.8 mmol/L (134.5-145); TOTAL PROTEIN 5.84 g/dL (6.3-8.2)
[2021-12-15 05:13] LABS: ANISOCYTOSIS 3+ (NOT PRESENT)
[2021-12-15] MEDS: PULMICORT 1 MG/2 ML NEB SCH ×2 (05:13→19:25)
[2021-12-15] MEDS: ALBUTEROL 0.083% NEB NEB SCH ×3 (05:13→19:25)
[2021-12-15 05:14] LABS: BURR CELLS 2+ (NOT PRESENT); PROTHROMBIN TIME 85.9 SEC (9.3-11.0)
[2021-12-15] MEDS: SOLU-CORTEF 100 MG IVP SCH ×3 (05:40→20:25)
[2021-12-15] MEDS: PROTONIX PO SCH ×2 (05:40→16:38)
[2021-12-15] MEDS: HUMULIN R SUBCUT PRN ×4 (05:48→20:25)
[2021-12-15 07:48] LABS: HBsAgSCREEN NEGATIVE
[2021-12-15 07:49] LABS: HEP A AB, IgM NEGATIVE; HEP B CORE Ab, IgM NEGATIVE
[2021-12-15 07:50] LABS: HEP C VIRUS AB 0.1
[2021-12-15] MEDS: CORDARONE PO SCH (08:20)
[2021-12-15] MEDS: ROCEPHIN 1 GM/50 ML D5W 1 GM/50 ML BAG IV SCH (08:20)
[2021-12-15] MEDS: FLOMAX PO SCH (08:20)
[2021-12-15] MEDS: NORCO 5-325 PO PRN ×3 (08:25→22:25)
[2021-12-15] MEDS: SODIUM CHLORIDE 1,000 ML IV SCH ×3 (08:40→19:30)
--- NOTE | 2021-12-15 09:09 | RS.DYSPHTX ---
Dysphagia Treatment Note Date of Note: 12/15/21 Visit #: 1 Time of Treatment: 08:30 Subjective: The patient was upright in the recliner chair with family member present. The patient reported a typical night sleep. He stated 'I coughed a lot, but nothing came out." The patient reported his appetite was slightly improving. He agreed to participate with SPT. He was cooperative with all tasks. Total treatment time: 25 - Short Term Goals Goal #1: Pt tolerate regular diet and thin liquids w/ min to no overt s/s of asp. Activity/Accuracy: Diet texture monitoring completed. Straws were present on pt's meal tray. He independently placed straws in thin liquids. Laryngeal palpation completed with several drinks of thin liquids via straw. Pt had moderately decreased LE and audible swallow. The patient utilized additional dry swallow with sips of liquids. No vocal quality change or overt coughing with thin liquids. The patient consumed a few bites of regular diet texture. Mildly prolonged mastication process with bread texture observed. Pt utilized multiple swallows with each trial and alternated liquids and solids. The patient had no overt s/s of aspiration. Goal #2: Pt/family/staff use safe swallow/aspiration precautions 100% of PO intake Activity/Accuracy: Family present and FIRE LIEUTENANT MARINE provided education on recommendations for safe swallowing. The patient was utilizing safe swallow precautions including sitting upright, pacing with meal, and alternating liquids and solids. Education completed on use of straw with all thin liquids to reduce aspiration risks. The family verbalized understanding and provided re-assurance of straws in the home environment. The FIRE LIEUTENANT MARINE discussed risks with premature spillage and airway protection. Education with aspiration scenarios with thin liquids via cup discussed to improve safety awareness with PO intake. FIRE LIEUTENANT MARINE educated staff to use straws with all thin liquids and during medication administration. Goal #3: Oral care routine to reduce risks of aspiration on oral bacteria Activity/Accuracy: FIRE LIEUTENANT MARINE discussed pt's oral care routine. He reported sleeping in his dentures, which is typical in the home environment. The FIRE LIEUTENANT MARINE discussed removing dentures post all meals to remove food residuals under denture plate. The FIRE LIEUTENANT MARINE also educated pt on cleaning mouth and dentures post breathing treatments. The family member was educated and trained with oral care routine to be completed once pt finished a.m. meal. Goal #4: Trial LE exercises to improve airway protection Activity/Accuracy: FIRE LIEUTENANT MARINE discussed pt's LE weakness. He was consuming his a.m. meal and did not want to complete exercises this date. FIRE LIEUTENANT MARINE reviewed risks for aspiration due to airway protection. He verbalized understanding. - Long-Term Goals Goal #1: Pt maintain adequate hydration/nutrition on safer and least rest. diet Assessment: The patient reports improvements with appetite. He is following safe swallow and aspiration precautions and has family member present to assist and monitor with meals. With regular diet texture, pt demonstrates mild difficulty that is compensated with slow rate and use of swallow strategies. With thin liquids, pt has risks for penetration/aspiration with open cup sips, that is reduced by controlled straw sips. Pt's cough is non-productive at this time, but demonstrates a strong cough. Given education and training, the patient and family verbalize and demonstrate safe swallow recommendations. - Units Charged Swallowing Therapy: 2 - Plan Comments: Continue regular diet texture with thin liquids via straw. Medications whole one at a time with thin liquids via straw.
--- NOTE | 2021-12-15 10:56 | RS.OTINEVL ---
Subjective - Patient information Date of Evaluation: 12/15/21 Date of Arrival on Unit: 12/13/21 Admitted From:: Home Diagnosis: ACT, Pneumonitis, dehydration PRECAUTIONS: Weakness, Back pain Usual Living Arrangement: With Spouse Living Arrangement Comments: lives in home with . pt uses power w/c in the home and uses straight cane when out of the home. Home Environment: House Medical History: Hypertension, Diabetes, CHF, Arthritis Medical History Comments:: DM 2, CABG, Heart cath, HTN, Ataxia Surgical History: Knee Replacement (left), CABG Surgical History Comments:: prostate surgery Medications: see chart Subjective Information/ Patient Comments:: "My back is hurting." "I'm going to see if there is something we can do about it." - Level of function Prior to this admission, the patient could do the following:: Partially Dependent Ambulation, Drive Abilities prior to this admission: Pt walks with cane in the community. Pt uses a [place] scooter in the home. Pt reports he is weak and has difficulty going to the restroom. Pt has adaptive equipment at home to assist with BLE dressing. Current Level of Function: Partially Dependent Current Equipment Used at Home: Cane, Electric scooter, electric wheelchair, shower stool, walker, potty chair, rollator rwx, and rolling walker Pain Assessment - Pain Pain Score: 6 Side: bilateral Pain Location Body Site: Back Pain Aggravating Factors: Standing, Walking Pain Alleviating Factors: Medication, Position Change Interventions - Objective Patient Orientation: Person, Place, Situation Current Interventions: IV's, Oxygen, Telemetry Observation: Pt required Minimal assistance to stand from chair. Pt has full AROM of BUE. Pt has weakness of BUE. Pt's pain and weakness appear to limit the patient's functional mobility. Pt using 2L of O2 in room. Interventions - ROM Right Upper Extremity AROM: WFL's Left Upper Extremity AROM: WFL's - Strength Right Upper Extremity Strength: Mild Weakness Left Upper Extremity Strength: Mild Weakness - Sensation Right Upper Extremity Sensation: Intact/Normal Left Upper Extremity Sensation: Intact/Normal Balance - Sitting Balance Static Sitting Balance: Fair Dynamic Sitting Balance: Fair - Standing Balance Static Standing Balance: Poor Dynamic Standing Balance: Poor ADL Skills - Self Feeding Self Feeding: Independent - Grooming Grooming: Min Assist - Bathing Bathing UE: Independent Bathing LE: Mod Assist Bathing Set-up: Shower - Dressing Dressing UE: Independent Dressing LE: Mod Assist - Toilet Management Toilet Hygiene: Independent Toilet Clothing Management: Min Assist Functional Mobility - Transfers Sit to Stand: Min Assist Stand to Sit: CGA - Ambulation Weight Bearing Status: FWB Assistive Device Used: Rolling Walker Assistance needed with Ambulation: 1 person assist - Safety Awareness Safety Awareness: Fair KELLEE INDEX SCORE: . 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 Patient Education Patient Education: Home Exercise Program, Education of Plan of Care Teaching Recipient: Patient Teaching Methods: Discussion, Demonstration Assessment Problem List:: Decreased level of function, Requires training/education, Decreased safety/Risk of falls, Weakness, Pain limits previous level of function Rehab Potential: Good Further Therapy Indicated?: Yes Comments: Candidate for outpatient therapy. Evaluation Complexity: HISTORY: Medium, EXAM OF BODY SYSTEMS: Medium, CLINICAL DECISION MAKING: Medium Patient's Goal(s): To be able to walk better and increase his strength. Short Term Goals - Goals GOAL 1: Pt to increase toilet transfers to CGA with RW. Goal to be met by: 12/20/21 GOAL 2: Pt to increase BUE strength to 4/5. Goal to be met by: 12/20/21 GOAL 3: Pt to be independent with Adaptive equipment for LE dressing. Goal to be met by: 12/20/21 GOAL 4: Pt to be CGA for sink level ADLS. Computer Systems Analyst Goals GOAL 1: Pt to be mod-independent with ADLS. Goal to be met by: 12/22/21 GOAL 2: Pt to increase BUE strength to 4+/5. Goal to be met by: 12/22/21 GOAL 3: Pt to be (I) with ADLS. Goal to be met by: 12/22/21 Plan Plan of Care: Therapeutic EX, Neuromuscular Re-Educ, Therapeutic Activity, Self- Care/Home Management Frequency of Treatment: 1-2 X day, as tolerated Duration of Treatment: 1 Week Anticipated Discharge Destination: Home Treatment Diagnosis (ICD 10 Codes): Weakness M62.81 Has the Physician been added for Co-signature?: Yes
[2021-12-16] MEDS: SODIUM CHLORIDE 1,000 ML IV SCH ×3 (01:01→23:39)
[2021-12-16] MEDS: ALBUTEROL 0.083% NEB NEB SCH ×3 (04:50→19:30)
[2021-12-16] MEDS: PULMICORT 1 MG/2 ML NEB SCH ×2 (04:50→19:30)
[2021-12-16] MEDS: ZOSYN 3.375 GM 3.375 GM in SODIUM CHLORIDE 50 ML IV SCH ×4 (05:04→23:10)
[2021-12-16] MEDS: SOLU-CORTEF 100 MG IVP SCH (05:04)
[2021-12-16 05:27] LABS: HEMATOCRIT 33.1 % (42.0-52.0); HEMOGLOBIN 10.8 g/dl (14.0-18.0); IMMATURE GRANULOCYTE % (AUTO) 0.3 % (0.0-5.0); LYMPHOCYTES # (AUTO) 0.3 K/uL (0.60-3.4); LYMPHOCYTES % (AUTO) 4.4 (10.0-50.0); MEAN CORPUSCULAR HGB CONC 32.6 (31.8-35.4); MEAN CORPUSCULAR VOLUME 79.8 fl (80.0-94.0); MONOCYTES # (AUTO) 0.5 K/uL (0.4-2.0); MONOCYTES % (AUTO) 6.4 (0-10); NEUTROPHILS # (AUTO) 6.4 K/ul (2.0-6.9); NEUTROPHILS % (AUTO) 88.9 % (42.2-75.2); PLATELET COUNT 111 10^3/uL (140-440); RDW COEFFICIENT OF VARIATION 21.2 % (11.6-14.8); RED BLOOD COUNT 4.15 10^6/ul (4.70-6.10); WHITE BLOOD COUNT 7.24 K/ul (4.2-10.2)
[2021-12-16 05:43] LABS: PROTHROMBIN TIME 33.4 SEC (9.3-11.0)
[2021-12-16 05:44] LABS: ALANINE AMINOTRANSFERASE 357.3 U/L (0-50); ALKALINE PHOSPHATASE 156.1 U/L (56-119); ASPARTATE AMINO TRANSFERASE 90.5 U/L (17-59); BILIRUBIN,TOTAL 0.89 mg/dL (0.2-1.3); BLOOD UREA NITROGEN 43.4 mg/dL (9-20); CALCIUM 8.1 mg/dL (8.4-10.2); CARBON DIOXIDE 16.3 mmol/L (22-30.0); CHLORIDE 108.3 mmol/L (98-107); CREATININE 1.54 mg/dL (0.60-1.10); POTASSIUM 3.61 mmol/L (3.5-5.1); SODIUM 135.5 mmol/L (134.5-145); TOTAL PROTEIN 5.63 g/dL (6.3-8.2)
[2021-12-16] MEDS: PROTONIX PO SCH ×2 (05:45→17:10)
[2021-12-16 06:00] LABS: ANISOCYTOSIS 2+ (NOT PRESENT)
[2021-12-16 06:01] LABS: BURR CELLS 2+ (NOT PRESENT)
--- NOTE | 2021-12-16 08:47 | PCM.PROG ---
Attending Provider: ATTENDING PROVIDER: Dr. ЕЛЕНА ARTHUR This patient is seen with Rosa Maria Christianson, Nurse Practitioner. DATE OF SERVICE: 12/16/21 SUBJECTIVE: This 86 year old /WHITE M was hospitalized 12/13/21. Has been eating better. INR finally down to 3.4 today. Renal function is slowly improving. Has been afebrile. REVIEW OF SYSTEMS: CONSTITUTIONAL: No night sweats. No fatigue, malaise, lethargy. No fever or chills. Weakness. HEENT: Eyes: No visual changes. No eye pain. No eye discharge. ENT: No runny nose. No epistaxis. No sinus pain. No odynophagia. No congestion. RESPIRATORY: Cough, no congestion. No hemoptysis. No shortness of breath. CARDIOVASCULAR: No angina symptoms. No CHF symptoms. No atypical chest pain for CAD. No palpitations. No orthopnea.. GASTROINTESTINAL: No abdominal pain. No nausea or vomiting. No diarrhea or constipation. No hematemesis. No hematochezia. GENITOURINARY: No urgency. No frequency. No dysuria. No hematuria. No obstructi ve symptoms. No discharge. No pain. No significant abnormal bleeding. MUSCULOSKELETAL: No musculoskeletal pain; no joint swelling. NEUROLOGICAL: Awake, alert, oriented to time, place and person. No headache. No neck pain. No syncope. No seizures. No dizziness. PSYCHIATRIC: Not anxious. No depression. No suicidal thoughts. No homicidal thoughts. SKIN: No rash. No lesions. No wounds. ENDOCRINE: No unexplained weight loss. No weight gain. HEMATOLOGIC/LYMPHATIC: No anemia. No purpura. No petechiae. No prolonged or excessive bleeding. No palpable lymph nodes. PHYSICAL EXAMINATION: GENERAL: The patient is awake, alert and oriented, sitting in bed in no distress. VITAL SIGNS: Temperature 96.6 F, Pulse 92, Respiratory Rate 18, BP 124/74, Pulse Ox 98% HEENT: Head normocephalic, atraumatic. Eyes: Extraocular muscles are intact. Pupils are equal, round and reactive to light and accommodation. Ears: No lesions. Nose appeared normal. Throat: No exudate or erythema. NECK: Supple. No JVD, no carotid bruit. No lymphadenopathy or thyromegaly. LUNGS: Diminished breath sounds. Bilateral crackles right greater than left. Clear to auscultation. Percussion note normal. Chest symmetrical. HEART: S1, S2, no S3. No murmurs. No cyanosis or clubbing. No ascites. Pulses: Dorsalis pedis and posterior tibial pulses +1 to +2 both sides. ABDOMEN: Soft. Non-tender. Bowel sounds active. No CVA tenderness. No mass felt. EXTREMITIES: No edema. Full range of motion of all extremities, equal. NEUROLOGIC: No focal deficit. Cranial nerves II through XII are grossly intact. No headache. No double vision. SKIN: Not dry. Intact. Turgor-normal. LYMPHATIC: No palpable lymph nodes/no lymphedema. MUSCULOSKELETAL: Normal joints with no swelling. Muscle tone is normal. LAB REVIEW: 12/16/21 04:50 12/16/21 04:50 12/16/21 04:50: PT 33.4 H D, INR 3.40 D 12/16/21 04:50: Sodium 135.5, Potassium 3.61, Chloride 108.3 H, Carbon Dioxide 16.3 L, Anion Gap 14.51, BUN 43.4 H, Creatinine 1.54 H, Estimated GFR (MDRD) 43.00, BUN/Creatinine Ratio 28.18, Glucose 136.0 H, Calcium 8.10 L, Total Bilirubin 0.89, AST 90.5 H D, ALT 357.3 H D, Alkaline Phosphatase 156.1 H D, Total Protein 5.63 L, Albumin 3.00 L, Globulin 2.63, Albumin/Globulin Ratio 1.14 12/16/21 04:50: WBC 7.24, RBC 4.15 L, Hgb 10.8 L, Hct 33.1 L, MCV 79.8 L, MCH 26.0 L, MCHC 32.6, RDW Coeff of [place] 21.2 H, Plt Count 111 L, Immature Gran % (Auto) 0.3, Neut % (Auto) 88.9 H, Lymph % (Auto) 4.4 L, [place] % (Auto) 6.4, Eos % (Auto) 0.0, Baso % (Auto) 0.0, Neut # (Auto) 6.4, Lymph # (Auto) 0.3 L, [place] # (Auto) 0.5, Eos # (Auto) 0.0, Baso # (Auto) 0.0, Immature Gran # (Auto) 0.0, Platelet Estimate , Anisocytosis 2+, [place] Cells 2+ ASSESSMENT: Please see below. 1. Bilateral pneumonia 2. Acute renal failure 3. UTI positive Klebsiella 4. Hypercoagulation 5. Atrial fibrillation PLAN: 1. Continue to hold Coumadin 2. Repeat chest x-ray 3. Continue with IV Rocephin 4. Continue IV fluids 5. Discontinue IV steroids 6. Prednisone 20mg daily Plan and coordination of the patient's care discussed in the presence of Chief Cloth Finishing Range Operator and nurse. SCRIBED BY: Maranda ADAMS scribed while in presence of service performed by Dr. Arthur/Rosa Maria Christianson APRN on 12/16/21 ([id number])
[2021-12-16] MEDS: CORDARONE PO SCH (08:51)
[2021-12-16] MEDS: ROCEPHIN 1 GM/50 ML D5W 1 GM/50 ML BAG IV SCH (08:51)
[2021-12-16] MEDS: PREDNISONE PO SCH (08:51)
[2021-12-16] MEDS: FLOMAX PO SCH ×2 (08:52→20:20)
--- NOTE | 2021-12-16 10:43 | PN ---
DATE OF SERVICE: 12/15/21 SUBJECTIVE: 86 year old white male hospitalized with acute pneumonitis and dehydration, generalized weakness. The patient's condition has improved. He says that he is feeling a lot better. His son present in the room. REVIEW OF SYSTEMS: CONSTITUTIONAL: No night sweats. No fatigue, malaise, lethargy. No fever or chills. HEENT: Eyes: No visual changes. No eye pain. No eye discharge. ENT: No runny nose. No epistaxis. No sinus pain. No sore throat. No odynophagia. No congestion. RESPIRATORY: Coughing is much less, no congestion. No hemoptysis. No shortness of breath. CARDIOVASCULAR: No angina symptoms. No CHF symptoms. No atypical chest pain for CAD. No palpitations. No PND. No orthopnea. GASTROINTESTINAL: No abdominal pain. No nausea or vomiting. No diarrhea or constipation. No hematemesis. No hematochezia. Appetite is improving. GENITOURINARY: No urgency. No frequency. No dysuria. No hematuria. No obstructive symptoms. No discharge. No pain. No significant abnormal bleeding. MUSCULOSKELETAL: No musculoskeletal pain; no joint swelling. NEUROLOGICAL: No headache. No neck pain. No syncope. No seizures. No dizziness. PSYCHIATRIC: Not anxious. No depression. No suicidal thoughts. No homicidal thoughts. SKIN: No rash. No lesions. No wounds. ENDOCRINE: No unexplained weight loss. No weight gain. HEMATOLOGIC/LYMPHATIC: No anemia. No purpura. No petechiae. No prolonged or excessive bleeding. No palpable lymph nodes. PHYSICAL EXAMINATION: VITAL SIGNS: Temperature 97.8, pulse 90, respiratory rate 20, blood pressure 122/80 and pulse 99%. HEENT: Head normocephalic, atraumatic. Eyes: Extraocular muscles are intact. Pupils are equal, round and reactive to light and accommodation. Ears: No lesions. Nose appeared normal. Throat: No exudate or erythema. NECK: Supple. No JVD, no carotid bruit. No lymphadenopathy or thyromegaly. LUNGS: Decreased breath sounds but Clear to auscultation. Percussion note normal. Chest symmetrical. HEART: S1, S2, no S3. No murmurs. No cyanosis or clubbing. No ascites. Pulses: Dorsalis pedis and posterior tibial pulses +1 to +2 bilaterally. ABDOMEN: Soft. Nontender. Bowel sounds active. No CVA tenderness. No mass felt. EXTREMITIES: No edema. Full range of motion of all extremities, equal. NEUROLOGIC: No focal deficit. Cranial nerves II through XII are grossly intact. No headache. No double vision. SKIN: Not dry. Intact. Turgor - normal. LYMPHATIC: No palpable lymph nodes/no lymphedema. MUSCULOSKELETAL: Normal joints with no swelling. Muscle tone is normal. LABS: Hgb 11, hct 33, WBC 7,900 normal differential, creatinine 1.8, BUN 55, potassium 3.9 ASSESSMENT: 1. Acute pneumonitis seems to be resolving 2. Chronic lung disease, stable 3. Dehydration, clinically has resolved 4. Renal azotemia with chronic kidney disease seems to be stable not worsening. PLAN: 1. Continue Antibiotics Rocephin 2. The patient grew Klebsiella pneumoniae in the urine cultures. 3. We will discontinue Zosyn TIME SPENT: More than 30 minutes. Plan and coordination of the patient's care discussed in the presence of nurse. KENNY
[2021-12-16] MEDS: HUMULIN R SUBCUT PRN ×3 (12:03→20:29)
--- NOTE | 2021-12-16 15:31 | DI ---
EXAM: Chest two views HISTORY: Pneumonia COMPARISON: CT 12/13/2021 TECHNIQUE: Two views of the chest were performed FINDINGS: Small bilateral pleural effusions with bibasilar atelectasis and/or consolidation. Bilate ral interstitial prominence. No visible pneumothorax.At apical opacity. Heart is enlarged. Mediast inal contour unchanged. Median sternotomy wires. IMPRESSION: 1. Bilateral interstitial prominence with bibasilar atelectasis and/or consolidation, may relate to pneumonia and/or edema. Bilateral pleural effusions. 2. Right apical opacity, corresponding to the finding described on CT.
[2021-12-16] MEDS: NORCO 5-325 PO PRN (17:17)
[2021-12-17] MEDS: ALBUTEROL 0.083% NEB NEB SCH ×3 (04:51→19:38)
[2021-12-17] MEDS: PULMICORT 1 MG/2 ML NEB SCH ×2 (04:51→19:38)
[2021-12-17 05:21] LABS: BASOPHILS % (AUTO) 0.1 % (0.0-3.0); HEMATOCRIT 35.5 % (42.0-52.0); HEMOGLOBIN 11.4 g/dl (14.0-18.0); IMMATURE GRANULOCYTE % (AUTO) 0.4 % (0.0-5.0); LYMPHOCYTES # (AUTO) 0.5 K/uL (0.60-3.4); LYMPHOCYTES % (AUTO) 4.7 (10.0-50.0); MEAN CORPUSCULAR HEMOGLOBIN 25.7 pg (27.0-31.0); MEAN CORPUSCULAR HGB CONC 32.1 (31.8-35.4); MEAN CORPUSCULAR VOLUME 80.1 fl (80.0-94.0); MONOCYTES # (AUTO) 0.8 K/uL (0.4-2.0); MONOCYTES % (AUTO) 8.5 (0-10); NEUTROPHILS # (AUTO) 8.3 K/ul (2.0-6.9); NEUTROPHILS % (AUTO) 86.3 % (42.2-75.2); PLATELET COUNT 128 10^3/uL (140-440); RDW COEFFICIENT OF VARIATION 21.2 % (11.6-14.8); RED BLOOD COUNT 4.43 10^6/ul (4.70-6.10); WHITE BLOOD COUNT 9.63 K/ul (4.2-10.2)
[2021-12-17] MEDS: ZOSYN 3.375 GM 3.375 GM in SODIUM CHLORIDE 50 ML IV SCH ×3 (05:25→17:30)
[2021-12-17 05:35] LABS: PROTHROMBIN TIME 27.1 SEC (9.3-11.0)
[2021-12-17 05:38] LABS: ALBUMIN 3.28 g/dL (3.5-5.0); BILIRUBIN,TOTAL 0.88 mg/dL (0.2-1.3); BLOOD UREA NITROGEN 42.4 mg/dL (9-20); CALCIUM 8.52 mg/dL (8.4-10.2); CARBON DIOXIDE 17.2 mmol/L (22-30.0); CHLORIDE 108.2 mmol/L (98-107); CREATININE 1.5 mg/dL (0.60-1.10); GLUCOSE 67.1 mg/dL (74-106); POTASSIUM 3.23 mmol/L (3.5-5.1); SODIUM 137.6 mmol/L (134.5-145); TOTAL PROTEIN 6.02 g/dL (6.3-8.2)
[2021-12-17] MEDS: PROTONIX PO SCH ×2 (05:41→17:29)
[2021-12-17 06:03] LABS: BURR CELLS 1+ (NOT PRESENT)
[2021-12-17 06:07] LABS: ANISOCYTOSIS 2+ (NOT PRESENT)
[2021-12-17] MEDS: FLOMAX PO SCH ×2 (08:45→21:40)
[2021-12-17] MEDS: PREDNISONE PO SCH (08:45)
[2021-12-17] MEDS: CORDARONE PO SCH (08:46)
[2021-12-17] MEDS: ROCEPHIN 1 GM/50 ML D5W 1 GM/50 ML BAG IV SCH (08:46)
[2021-12-17] MEDS: HUMULIN R SUBCUT PRN ×2 (12:18→17:30)
[2021-12-17] MEDS: NORCO 5-325 PO PRN (22:09)
[2021-12-18] MEDS: ZOSYN 3.375 GM 3.375 GM in SODIUM CHLORIDE 50 ML IV SCH ×4 (00:23→17:14)
[2021-12-18 04:51] LABS: BASOPHILS % (AUTO) 0.1 % (0.0-3.0); EOSINOPHILS % (AUTO) 0.1 % (0.0-7.0); HEMATOCRIT 33.3 % (42.0-52.0); HEMOGLOBIN 10.9 g/dl (14.0-18.0); IMMATURE GRANULOCYTE # (AUTO) 0.1 (0.0-1.0); IMMATURE GRANULOCYTE % (AUTO) 0.7 % (0.0-5.0); LYMPHOCYTES # (AUTO) 0.5 K/uL (0.60-3.4); LYMPHOCYTES % (AUTO) 5.1 (10.0-50.0); MEAN CORPUSCULAR HEMOGLOBIN 25.9 pg (27.0-31.0); MEAN CORPUSCULAR HGB CONC 32.7 (31.8-35.4); MEAN CORPUSCULAR VOLUME 79.1 fl (80.0-94.0); MONOCYTES # (AUTO) 0.8 K/uL (0.4-2.0); MONOCYTES % (AUTO) 8.8 (0-10); NEUTROPHILS # (AUTO) 7.7 K/ul (2.0-6.9); NEUTROPHILS % (AUTO) 85.2 % (42.2-75.2); PLATELET COUNT 128 10^3/uL (140-440); RDW COEFFICIENT OF VARIATION 21.2 % (11.6-14.8); RED BLOOD COUNT 4.21 10^6/ul (4.70-6.10)
[2021-12-18 05:02] LABS: ANISOCYTOSIS 1+ (NOT PRESENT); BURR CELLS 1+ (NOT PRESENT)
[2021-12-18 05:03] LABS: PROTHROMBIN TIME 26.7 SEC (9.3-11.0)
[2021-12-18 05:05] LABS: ALANINE AMINOTRANSFERASE 242.7 U/L (0-50); ALBUMIN 2.92 g/dL (3.5-5.0); ALKALINE PHOSPHATASE 129.6 U/L (56-119); ASPARTATE AMINO TRANSFERASE 57.3 U/L (17-59); BILIRUBIN,TOTAL 0.89 mg/dL (0.2-1.3); CALCIUM 8.32 mg/dL (8.4-10.2); CARBON DIOXIDE 17.4 mmol/L (22-30.0); CHLORIDE 107.3 mmol/L (98-107); CREATININE 1.41 mg/dL (0.60-1.10); GLUCOSE 222.9 mg/dL (74-106); POTASSIUM 3.54 mmol/L (3.5-5.1); SODIUM 135.6 mmol/L (134.5-145); TOTAL PROTEIN 5.47 g/dL (6.3-8.2)
[2021-12-18] MEDS: PULMICORT 1 MG/2 ML NEB SCH ×2 (05:08→19:16)
[2021-12-18] MEDS: ALBUTEROL 0.083% NEB NEB SCH ×3 (05:08→19:16)
[2021-12-18] MEDS: PROTONIX PO SCH ×2 (05:45→17:14)
[2021-12-18] MEDS: HUMULIN R SUBCUT PRN ×4 (05:55→20:37)
[2021-12-18] MEDS: FLOMAX PO SCH ×2 (08:42→20:37)
[2021-12-18] MEDS: PREDNISONE PO SCH (08:42)
[2021-12-18] MEDS: CORDARONE PO SCH (08:42)
[2021-12-18] MEDS: ROCEPHIN 1 GM/50 ML D5W 1 GM/50 ML BAG IV SCH (08:43)
[2021-12-18] MEDS: NORCO 5-325 PO PRN (20:37)
[2021-12-19] MEDS: ZOSYN 3.375 GM 3.375 GM in SODIUM CHLORIDE 50 ML IV SCH ×5 (00:15→23:07)
[2021-12-19 05:01] LABS: BASOPHILS % (AUTO) 0.1 % (0.0-3.0); EOSINOPHILS % (AUTO) 0.1 % (0.0-7.0); HEMATOCRIT 34.2 % (42.0-52.0); HEMOGLOBIN 11.1 g/dl (14.0-18.0); IMMATURE GRANULOCYTE # (AUTO) 0.1 (0.0-1.0); IMMATURE GRANULOCYTE % (AUTO) 0.8 % (0.0-5.0); LYMPHOCYTES # (AUTO) 0.8 K/uL (0.60-3.4); LYMPHOCYTES % (AUTO) 7.3 (10.0-50.0); MEAN CORPUSCULAR HEMOGLOBIN 25.7 pg (27.0-31.0); MEAN CORPUSCULAR HGB CONC 32.5 (31.8-35.4); MEAN CORPUSCULAR VOLUME 79.2 fl (80.0-94.0); MONOCYTES % (AUTO) 8.6 (0-10); NEUTROPHILS # (AUTO) 9.3 K/ul (2.0-6.9); NEUTROPHILS % (AUTO) 83.1 % (42.2-75.2); PLATELET COUNT 153 10^3/uL (140-440); RDW COEFFICIENT OF VARIATION 21.2 % (11.6-14.8); RED BLOOD COUNT 4.32 10^6/ul (4.70-6.10); WHITE BLOOD COUNT 11.24 K/ul (4.2-10.2)
[2021-12-19 05:11] LABS: ALANINE AMINOTRANSFERASE 227.2 U/L (0-50); ALBUMIN 3.09 g/dL (3.5-5.0); ALKALINE PHOSPHATASE 120.9 U/L (56-119); ASPARTATE AMINO TRANSFERASE 55.5 U/L (17-59); BLOOD UREA NITROGEN 36.3 mg/dL (9-20); CALCIUM 8.49 mg/dL (8.4-10.2); CARBON DIOXIDE 18.5 mmol/L (22-30.0); CHLORIDE 106.5 mmol/L (98-107); CREATININE 1.39 mg/dL (0.60-1.10); GLUCOSE 65.5 mg/dL (74-106); POTASSIUM 3.72 mmol/L (3.5-5.1); PROTHROMBIN TIME 26.9 SEC (9.3-11.0); SODIUM 135.1 mmol/L (134.5-145); TOTAL PROTEIN 5.77 g/dL (6.3-8.2)
[2021-12-19] MEDS: PULMICORT 1 MG/2 ML NEB SCH ×2 (05:15→19:15)
[2021-12-19] MEDS: ALBUTEROL 0.083% NEB NEB SCH ×3 (05:15→19:15)
[2021-12-19] MEDS: PROTONIX PO SCH ×2 (05:47→17:08)
[2021-12-19] MEDS: FLOMAX PO SCH ×2 (09:03→20:25)
[2021-12-19] MEDS: PREDNISONE PO SCH (09:04)
[2021-12-19] MEDS: ROCEPHIN 1 GM/50 ML D5W 1 GM/50 ML BAG IV SCH (09:04)
[2021-12-19] MEDS: CORDARONE PO SCH (09:04)
[2021-12-19] MEDS: HUMULIN R SUBCUT PRN ×3 (11:45→20:25)
[2021-12-19] MEDS: NORCO 5-325 PO PRN (21:19)
[2021-12-20 04:59] LABS: HEMATOCRIT 33.8 % (42.0-52.0); IMMATURE GRANULOCYTE # (AUTO) 0.1 (0.0-1.0); IMMATURE GRANULOCYTE % (AUTO) 0.6 % (0.0-5.0); LYMPHOCYTES # (AUTO) 0.6 K/uL (0.60-3.4); LYMPHOCYTES % (AUTO) 5.8 (10.0-50.0); MEAN CORPUSCULAR HEMOGLOBIN 25.8 pg (27.0-31.0); MEAN CORPUSCULAR HGB CONC 32.5 (31.8-35.4); MEAN CORPUSCULAR VOLUME 79.2 fl (80.0-94.0); MONOCYTES # (AUTO) 0.6 K/uL (0.4-2.0); MONOCYTES % (AUTO) 5.9 (0-10); NEUTROPHILS # (AUTO) 8.6 K/ul (2.0-6.9); NEUTROPHILS % (AUTO) 87.7 % (42.2-75.2); PLATELET COUNT 144 10^3/uL (140-440); RDW COEFFICIENT OF VARIATION 21.4 % (11.6-14.8); RED BLOOD COUNT 4.27 10^6/ul (4.70-6.10); WHITE BLOOD COUNT 9.78 K/ul (4.2-10.2)
[2021-12-20 05:12] LABS: ALBUMIN 3.05 g/dL (3.5-5.0); ALKALINE PHOSPHATASE 116.1 U/L (56-119); ASPARTATE AMINO TRANSFERASE 49.3 U/L (17-59); BILIRUBIN,TOTAL 0.81 mg/dL (0.2-1.3); BLOOD UREA NITROGEN 30.9 mg/dL (9-20); CALCIUM 8.21 mg/dL (8.4-10.2); CARBON DIOXIDE 19.2 mmol/L (22-30.0); CHLORIDE 106.1 mmol/L (98-107); CREATININE 1.33 mg/dL (0.60-1.10); POTASSIUM 3.44 mmol/L (3.5-5.1); SODIUM 135.8 mmol/L (134.5-145); TOTAL PROTEIN 5.65 g/dL (6.3-8.2)
[2021-12-20] MEDS: ZOSYN 3.375 GM 3.375 GM in SODIUM CHLORIDE 50 ML IV SCH (05:14)
[2021-12-20 05:21] VITALS: BP 148/88; TEMP 98.2
[2021-12-20] MEDS: PULMICORT 1 MG/2 ML NEB SCH (05:22)
[2021-12-20] MEDS: ALBUTEROL 0.083% NEB NEB SCH (05:22)
[2021-12-20] MEDS: PROTONIX PO SCH (05:44)
[2021-12-20] MEDS: CORDARONE PO SCH (08:34)
[2021-12-20] MEDS: FLOMAX PO SCH (08:34)
[2021-12-20] MEDS: PREDNISONE PO SCH (08:34)
[2021-12-20] MEDS ORDERED: K-DUR PO ONE (08:36)
[2021-12-20] MEDS ORDERED: LASIX IVP ONE (08:36)
[2021-12-20] MEDS: ROCEPHIN 1 GM/50 ML D5W 1 GM/50 ML BAG IV SCH (08:53)
--- NOTE | 2021-12-20 10:23 | PCM.PROG ---
Attending Provider: ATTENDING PROVIDER: Dr. ЕЛЕНА ARTHUR This patient is seen with Rosa Maria Christianson, Nurse Practitioner. DATE OF SERVICE: 12/20/21 SUBJECTIVE: This 86 year old /WHITE M was hospitalized 12/13/21. Eating well. Has pedal edema, up and about walking. Feeling better. Ready for discharge home today. REVIEW OF SYSTEMS: CONSTITUTIONAL: No night sweats. Fatigue. No fever or chills. HEENT: Eyes: No visual changes. No eye pain. No eye discharge. ENT: No runny n ose. No epistaxis. No sinus pain. No odynophagia. No congestion. RESPIRATORY: Cough, no congestion. No hemoptysis. No shortness of breath. CARDIOVASCULAR: No angina symptoms. No CHF symptoms. No atypical chest pain for CAD. No palpitations. No orthopnea.. GASTROINTESTINAL: No abdominal pain. No nausea or vomiting. No diarrhea or constipation. No hematemesis. No hematochezia. GENITOURINARY: No urgency. No frequency. No dysuria. No hematuria. No obstructive symptoms. No discharge. No pain. No significant abnormal bleeding. MUSCULOSKELETAL: No musculoskeletal pain; no joint swelling. NEUROLOGICAL: Awake, alert, oriented to time, place and person. No headache. No neck pain. No syncope. No seizures. No dizziness. PSYCHIATRIC: Not anxious. No depression. No suicidal thoughts. No homicidal thou ghts. SKIN: No rash. No lesions. No wounds. ENDOCRINE: No unexplained weight loss. No weight gain. HEMATOLOGIC/LYMPHATIC: No anemia. No purpura. No petechiae. No prolonged or excessive bleeding. No palpable lymph nodes. PHYSICAL EXAMINATION: GENERAL: The patient is awake, alert and oriented, sitting in bed in no distress. VITAL SIGNS: Temperature 98.2 F, Pulse 100, Respiratory Rate 18, BP 148/88, Pulse Ox 95% HEENT: Head normocephalic, atraumatic. Eyes: Extraocular muscles are intact. Pupils are equal, round and reactive to light and accommodation. Ears: No lesions. Nose appeared normal. Throat: No exudate or erythema. NECK: Supple. No JVD, no carotid bruit. No lymphadenopathy or thyromegaly. LUNGS: Diminished breath sounds. Clear to auscultation. Percussion note normal. Chest symmetrical. HEART: S1, S2, no S3. No murmurs. No cyanosis or clubbing. No ascites. Pulses: Dorsalis pedis and posterior tibial pulses +1 to +2 both sides. ABDOMEN: Soft. Non-tender. Bowel sounds active. No CVA tenderness. No mass felt. EXTREMITIES: Trace pedal edema. Full range of motion of all extremities, equal. NEUROLOGIC: No focal deficit. Cranial nerves II through XII are grossly intact. No headache. No double vision. SKIN: Not dry. Intact. Turgor-normal. LYMPHATIC: No palpable lymph nodes/no lymphedema. MUSCULOSKELETAL: Normal joints with no swelling. Muscle tone is normal. LAB REVIEW: 12/20/21 04:51 12/20/21 04:51 12/20/21 04:51: Sodium 135.8, Potassium 3.44 L, Chloride 106.1, Carbon Dioxide 19.2 L, Anion Gap 13.94, BUN 30.9 H, Creatinine 1.33 H, Estimated GFR (MDRD) 51.00, BUN/Creatinine Ratio 23.23, Glucose 106.0, Calcium 8.21 L, Total Bilirubin 0.81, AST 49.3, ALT 189.0 H D, Alkaline Phosphatase 116.1, Total Protein 5.65 L, Albumin 3.05 L, Globulin 2.60, Albumin/Globulin Ratio 1.17 12/20/21 04:51: PT 29.0 H, INR 2.94 12/20/21 04:51: WBC 9.78, RBC 4.27 L, Hgb 11.0 L, Hct 33.8 L, MCV 79.2 L, MCH 25.8 L, MCHC 32.5, RDW Coeff of [place] 21.4 H, Plt Count 144, Immature Gran % (Auto) 0.6, Neut % (Auto) 87.7 H, Lymph % (Auto) 5.8 L, [place] % (Auto) 5.9, Eos % (Auto) 0.0, Baso % (Auto) 0.0, Neut # (Auto) 8.6 H, Lymph # (Auto) 0.6, [place] # (Auto) 0.6, Eos # (Auto) 0.0, Baso # (Auto) 0.0, Immature Gran # (Auto) 0.1 ASSESSMENT: Please see below. 1. Bilateral pneumonia 2. Renal azotemia 3. Generalized weakness 4. Atrial fibrillation 5. Hypercoagulopathy, improved. PLAN: 1. Discharge home today 2. Metformin 500mg BID 3. Lasix 20mg IV one dose before discharge 4. Restart Amaryl 5. Still hold Coumadin as INR is still fluctuating without restart of Coumadin 6. Omnicef 300mg PO daily for 5 days 7. Prednisone 10mg PO daily for 5 days 8. The patient would benefit from Nebulizer machine due to endstage COPD and pneumonia 9. Prescription for DUO NEBS TID 10. The patient would benefit from PT/OT and will to do this as outpatient 11. Followup next week in the office with repeat PT/INR Plan and coordination of the patient's care discussed in the presence of Production Control Expert and nurse. SCRIBED BY: Maranda ADAMS scribed while in presence of service performed by Dr. Arthur/Rosa Maria Christianson APRN on 12/20/21 ([id number])
--- NOTE | 2021-12-20 10:37 | DS ---
DATE OF SERVICE: 12/20/21 FINAL DIAGNOSIS: 1. Bilateral pneumonia 2. Renal azotemia 3. Generalized weakness 4. Atrial fibrillation 5. Hypercoagulopathy, improved. DISCHARGE INSTRUCTIONS: Discharge home. Continue to monitor blood sugars at least in the morning before eating and as needed. Followup with Dr. Massey's office on MondayDecember 27 at 11:45am. Referral with [facility] MEDICATIONS AT DISCHARGE: Amiodarone 200mg PO daily Amaryl 5mg PO TID Flomax 0.4mg PO daily Acetaminophen-codeine 300/30mg PO Q 6 hours NEW PRESCRIPTIONS: Cefdinir 300mg PO daily Metformin 500mg PO BID Prednisone 10mg PO daily Ipratropium-albuterol 3ml inhalation TID DISCONTINUED MEDICATIONS: Metformin 100mg PO BID Coumadin 5mg PO TUSA Coumadin 2.5mg PO SUMOWETHFR DIET INSTRUCTIONS: Regular ACTIVITY: As tolerated with rest periods as needed. Keep legs elevated above heart level when sitting or laying HOSPITAL COURSE: 86 year old white male who was a direct admit from out office with persistent cough and shortness of breath was found to have bilateral pneumonia. INR was incalculable for first three days. Liver function was increased. He did not have any anemia or thrombocytopenia. He has been on Coumadin for number of years for persistent atrial fibrillation. He showed no signs of bleeding. Three doses of Vitamin K was given, after third day INR was readable to 9.0. For past four days it has fluctuated between 2.6 and 2.9 despite no restarting Coumadin. He was found to be in acute renal failure with BUN of 60. He was placed on IV fluids along with IV Zosyn and Rocephin. IV fluids have been discontinued over weekend and renal function remained stable. He has been up and about feeling much stronger on room air and eating well. Repeat chest x-ray showed improvement. He is stable to go home. We will discharge on Omnicef 300mg daily for 5 days and Prednisone 10mg for 5 days. He would benefit from nebulizer machine at home due to endstage COPD and acute pneumonia. RX will be given. He is it use NEBS three times a day. He is agreeable for outpatient PT/OT and feel this would be a great benefit. Due to the fluctuating INR and being 2.9 today up from yesterday he is not to restart Coumadin until back in office next week. We will discharge in stable condition and followup in office next week. TIME SPENT: More than 60 minutes. KENNY
[2021-12-20] MEDS: HUMULIN R SUBCUT PRN (11:06)
--- NOTE | 2021-12-20 14:38 | PN ---
DATE OF SERVICE: 12/16/21 SUBJECTIVE: The patient was seen and examined with the Nurse Practitioner. The patient's condition is stable. He is improving. His pneumonia seems to be resolving. Oxygen saturation more than 90% on room air. Hydration improving. Echo showed kinetic septal wall, ejection fracture 30-35%, enlarged LA cavity, valvular function, tricuspid regurgitation and mitral regurgitation moderate to severe, aortic regurgitation. TIME SPENT: More than 30 minutes. Plan and coordination of the patient's care discussed in the presence of nurse. KENNY
--- NOTE | 2021-12-21 11:15 | PN ---
DATE OF SERVICE: 12/17/21 SUBJECTIVE: 86 year old white male hospitalized with acute pneumonia, dehydration, generalized weakness. The patient's condition has improved. He is feeling a lot better. His appetite has improved. REVIEW OF SYSTEMS: CONSTITUTIONAL: No night sweats. No fatigue, malaise, lethargy. No fever or chills. HEENT: Eyes: No visual changes. No eye pain. No eye discharge. ENT: No runny nose. No epistaxis. No sinus pain. No sore throat. No odynophagia. No congestion. RESPIRATORY: No cough, no congestion. No hemoptysis. No shortness of breath. CARDIOVASCULAR: No angina symptoms. No CHF symptoms. No atypical chest pain for CAD. No palpitations. No PND. No orthopnea. GASTROINTESTINAL: No abdominal pain. No nausea or vomiting. No diarrhea or constipation. No hematemesis. No hematochezia. GENITOURINARY: No urgency. No frequency. No dysuria. No hematuria. No obstructive symptoms. No discharge. No pain. No significant abnormal bleeding. MUSCULOSKELETAL: No musculoskeletal pain; no joint swelling. NEUROLOGICAL: No headache. No neck pain. No syncope. No seizures. No dizziness. PSYCHIATRIC: Not anxious. No depression. No suicidal thoughts. No homicidal thoughts. SKIN: No rash. No lesions. No wounds. ENDOCRINE: No unexplained weight loss. No weight gain. HEMATOLOGIC/LYMPHATIC: No anemia. No purpura. No petechiae. No prolonged or excessive bleeding. No palpable lymph nodes. PHYSICAL EXAMINATION: VITAL SIGNS: Temperature 97.5, pulse 90, respiratory rate 18, blood pressure 140/85 and pulse ox 100% on room air. HEENT: Head normocephalic, atraumatic. Eyes: Extraocular muscles are intact. Pupils are equal, round and reactive to light and accommodation. Ears: No lesions. Nose appeared normal. Throat: No exudate or erythema. NECK: Supple. No JVD, no carotid bruit. No lymphadenopathy or thyromegaly. LUNGS: Decreased breath sounds but clear to auscultation. Percussion note normal. Chest symmetrical. HEART: S1, S2, no S3. No murmurs. No cyanosis or clubbing. No ascites. Pulses: Dorsalis pedis and posterior tibial pulses +1 to +2 bilaterally. ABDOMEN: Soft. Nontender. Bowel sounds active. No CVA tenderness. No mass felt. EXTREMITIES: No edema. Full range of motion of all extremities, equal. NEUROLOGIC: No focal deficit. Cranial nerves II through XII are grossly intact. No headache. No double vision. SKIN: Not dry. Intact. Turgor - normal. LYMPHATIC: No palpable lymph nodes/no lymphedema. MUSCULOSKELETAL: Normal joints with no swelling. Muscle tone is normal. LABS: Hgb 11.4, hct 35, WBC 9,600 normal differential, creatinine 1.5, BUN 42, potassium 3.2 ASSESSMENT: 1. Pneumonia seems to be resolving 2. Kidney functions are improving. 3. Hypokalemia noted, will monitor that PLAN: 1. Antibiotics to be continued CONDITION: Improving. TIME SPENT: More than 30 minutes. Plan and coordination of the patient's care discussed in the presence of nurse. KENNY
--- NOTE | 2021-12-21 14:16 | PN ---
DATE OF SERVICE: 12/18/21 SUBJECTIVE: 86 year old white male hospitalized with bilateral pneumonia. The patient was also dehydrated and renal azotemia. He was weak. His condition has steadily improved. His kidney functions have improved. His appetite is much better. He hasn't been coughing. No fever. REVIEW OF SYSTEMS: CONSTITUTIONAL: No night sweats. No fatigue, malaise, lethargy. No fever or chills. HEENT: Eyes: No visual changes. No eye pain. No eye discharge. ENT: No runny nose. No epistaxis. No sinus pain. No sore throat. No odynophagia. No congestion. RESPIRATORY: No cough, no congestion. No hemoptysis. No shortness of breath. CARDIOVASCULAR: No angina symptoms. No CHF symptoms. No atypical chest pain for CAD. No palpitations. No PND. No orthopnea. GASTROINTESTINAL: No abdominal pain. No nausea or vomiting. No diarrhea or constipation. No hematemesis. No hematochezia. GENITOURINARY: No urgency. No frequency. No dysuria. No hematuria. No obstructive symptoms. No discharge. No pain. No significant abnormal bleeding. MUSCULOSKELETAL: No musculoskeletal pain; no joint swelling. NEUROLOGICAL: No headache. No neck pain. No syncope. No seizures. No dizziness. PSYCHIATRIC: Not anxious. No depression. No suicidal thoughts. No homicidal thoughts. SKIN: No rash. No lesions. No wounds. ENDOCRINE: No unexplained weight loss. No weight gain. HEMATOLOGIC/LYMPHATIC: No anemia. No purpura. No petechiae. No prolonged or excessive bleeding. No palpable lymph nodes. PHYSICAL EXAMINATION: VITAL SIGNS: Temperature 97.5, pulse 90, respiratory rate 18, blood pressure 70/85 and pulse ox 100%. HEENT: Head normocephalic, atraumatic. Eyes: Extraocular muscles are intact. Pupils are equal, round and reactive to light and accommodation. Ears: No lesions. Nose appeared normal. Throat: No exudate or erythema. NECK: Supple. No JVD, no carotid bruit. No lymphadenopathy or thyromegaly. LUNGS: Decreased breath sounds but clear to auscultation. Percussion note normal. Chest symmetrical. HEART: S1, S2, no S3. No murmurs. No cyanosis or clubbing. No ascites. Pulses: Dorsalis pedis and posterior tibial pulses +1 to +2 bilaterally. ABDOMEN: Soft. Nontender. Bowel sounds active. No CVA tenderness. No mass felt. EXTREMITIES: No edema. Full range of motion of all extremities, equal. NEUROLOGIC: No focal deficit. Cranial nerves II through XII are grossly intact. No headache. No double vision. SKIN: Not dry. Intact. Turgor - normal. LYMPHATIC: No palpable lymph nodes/no lymphedema. MUSCULOSKELETAL: Normal joints with no swelling. Muscle tone is normal. LABS: Hgb 10.9, hct 33, WBC 9,000 normal differential, creatinine 1.4, BUN 38, potassium 3.5, blood sugar 222. ASSESSMENT: 1. Bilateral pneumonia 2. Renal azotemia seems to be resolving 3. 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 Coagulopathy with increased INR on admission now 2.6. The patient was given PO Potassium and SUBCUT Potassium a few days ago PLAN: 1. Continue monitor INR 2. Continue to monitor CBC and CMP 3. Continue to monitor kidney functions. 4. Encourage the patient to eat and ambulate. 5. The patient's condition is improving. TIME SPENT: More than 30 minutes. Plan and coordination of the patient's care discussed in the presence of nurse. KENNY
== END 2021-12-20 11:10 | disposition home or self-care (01) | DRG 194 ==
LOC: LAB 12:01 → MEDSURG A 13:37
PROVIDERS: ADMIT Internal Medicine; ATTEND Internal Medicine
DX: Z20.822 Contact with and (suspected) exposure to COVID-19; Z51.81 Encounter for therapeutic drug level monitoring; Z91.11 Patient's noncompliance with dietary regimen; Z91.14 Patient's other noncompliance with medication regimen; E87.2 Acidosis; E86.0 Dehydration; J18.9 Pneumonia, unspecified organism; Z79.01 Long term (current) use of anticoagulants; Z91.19 Patient's noncompliance with other medical treatment and regimen; R13.10 Dysphagia, unspecified; D68.59 Other primary thrombophilia; N17.9 Acute kidney failure, unspecified; I10 Essential (primary) hypertension; Z79.899 Other long term (current) drug therapy; I48.11 Longstanding persistent atrial fibrillation; R29.6 Repeated falls; R63.0 Anorexia; I48.91 Unspecified atrial fibrillation; M62.81 Muscle weakness (generalized); Z79.84 Long term (current) use of oral hypoglycemic drugs; E11.9 Type 2 diabetes mellitus without complications